=== PATIENT | female | born 1955 | race Caucasian/White ===

== ENCOUNTER → 2020-07-05 09:12 | Outpatient (BNVA) | payer OTHER, SELFPAY | PROVIDERS: PCP Family Medicine; Referring Provider Family Medicine; Visit Provider Internal Medicine Gastroenterology | DX: Z13.89 Encounter for screening for other disorder (principal) | CPT/HCPCS: Q3014 ==

== ENCOUNTER 2020-07-22 08:30 | Outpatient (REF) | payer OTHER, SELFPAY ==
--- NOTE | 2020-07-22 09:00 | US_ITS ---
EXAMINATION: US ABDOMEN LIMITED CLINICAL INFORMATION: Nonalcoholic steatohepatitis. COMPARISON: Ultrasound abdomen complete 02/05/2019. TECHNIQUE: Real-time imaging of the right upper quadrant abdominal viscera. FINDINGS: PANCREAS: The head and body of the pancreas is homogeneous in echotexture. The tail is obscured by gas. LIVER: The liver is normal size, contour with worse echogenic texture. Parenchymal echogenicity is normal. No focal hepatic lesion. There is mildly dilated intrahepatic duct GALLBLADDER: The gallbladder is physiologically distended. Multiple mobile gallstones are present. No evidence of gallbladder wall thickening or pericholecystic fluid. COMMON BILE DUCT: Normal in caliber measuring 0.83 cm in diameter. RIGHT KIDNEY: There is anechoic cyst measuring 1.3 1.3 x 1.5 cm. No hydronephrosis or renal calculi. The kidney measures 8.9 cm in maximum dimension. FREE FLUID: None. US/US abdomen limited IMPRESSION: Coarse echogenic texture liver focal lesion. Mild intrahepatic ductal dilatation.. The CBD is mildly prominent measuring 0.83 cm. Gallstones without wall thickening. Small cyst midpole right kidney.
[2020-07-22 09:13] LABS: Basophils Percent Auto 0.3 % (0-2); Eosinophils Absolute Auto 0.1 X10*3/uL (0.0-0.4); Eosinophils Percent Auto 0.9 % (0-4); Hematocrit 45.6 % (37-47); Hemoglobin 14.6 g/dl (12.0-16.0); Imm Gran Abs Auto 0.03 X10*3/uL (0.00-0.03); Imm Gran Pct Auto 0.4 % (0.0-0.4); Lymphocytes Absolute Auto 1.2 X10*3/uL (1.2-4.9); Lymphocytes Percent Auto 16.1 % (20-40); MANUAL DIFF FLAG SCAN; Mean Corpuscular Hemoglobin 28.9 pg (27.0-33.0); Mean Corpuscular Volume 90.1 fL (80-98); Mean Platelet Volume 11.6 fL (9.4-12.3); Monocytes Absolute Auto 0.3 X10*3/uL (0.1-1.2); Monocytes Percent Auto 4.3 % (2-11); Neutrophils Absolute Auto 5.9 X10*3/uL (2.0-8.3); PLT CLUMP 1; Red Blood Count 5.06 X10*6/uL (4.20-5.50); Red Cell Distribution Width 11.9 % (11.0-16.0); SCAN SMEAR FLAG 1
[2020-07-22 09:18] LABS: INTERNATIONAL NORM RATIO 1.1 (0.9-1.1); Prothrombin Time 13.5 SEC (10.8-13.0)
[2020-07-22 09:35] LABS: Alanine Aminotransferase 15 U/L (0-31); Albumin Level 4.4 g/dL (3.5-5.0); Alkaline Phosphatase 107 U/L (39-117); Anion Gap 16 (12-20); Aspartate Amino Transferase 25 U/L (5-31); Bilirubin Total 0.6 mg/dL (0.0-1.0); Blood Urea Nitrogen 9 mg/dL (9-16); Calcium 9.7 mg/dL (8.4-10.2); Carbon Dioxide 32 mmol/L (22-29); Chloride 95 mmol/L (96-108); Estimated Glomerular Filt Rate 53; Gamma Glutamyl Transpeptidase 32 U/L (7-33); Glucose Random 117 mg/dL (60-115); Potassium 4.1 mmol/l (3.3-5.1); SLIDE REVIEW VERIFIED; Sodium 139 mmol/L (135-145); Total Protein 7.1 g/dL (6.5-8.0); White Blood Count 7.6 X10*3/uL (4.8-10.8)
[2020-07-23 19:03] LABS: Immunoglobulin G 991 mg/dL (600-1540)
== END 2020-07-22 08:31 | disposition home or self-care (01) ==
LOC: HO.US 08:30
PROVIDERS: PCP Family Medicine; Visit Provider Internal Medicine Gastroenterology
DX: K52.839 Microscopic colitis, unspecified (principal); K74.60 Unspecified cirrhosis of liver; K75.81 Nonalcoholic steatohepatitis (NASH)
CPT/HCPCS: 36415; 76705; 80053; 82784; 82977; 84443; 85025; 85610

== ENCOUNTER → 2020-08-05 10:18 | Outpatient (BNVA) | payer OTHER, SELFPAY | PROVIDERS: PCP Family Medicine; Visit Provider Internal Medicine Gastroenterology | DX: Z76.89 Persons encountering health services in other specified circumstances (principal) ==

== ENCOUNTER 2020-08-19 08:55 | Outpatient (REF) | payer OTHER, SELFPAY ==
[2020-08-20 11:42] LABS: H Pylori Breath Test NOT DETECTED (NOT DETECTED)
== END 2020-08-19 08:56 | disposition home or self-care (01) ==
LOC: HO.LNP 08:55
PROVIDERS: PCP Family Medicine; Visit Provider Internal Medicine Gastroenterology
DX: K75.81 Nonalcoholic steatohepatitis (NASH) (principal); K74.60 Unspecified cirrhosis of liver
CPT/HCPCS: 83013; 99211

== ENCOUNTER → 2020-09-28 08:19 | Outpatient (BNVA) | payer OTHER, SELFPAY | PROVIDERS: PCP Family Medicine; Visit Provider Internal Medicine Gastroenterology | DX: Z13.89 Encounter for screening for other disorder (principal) | CPT/HCPCS: Q3014 ==

== ENCOUNTER → 2021-01-04 09:56 | Outpatient (BNVA) | payer OTHER, SELFPAY | PROVIDERS: PCP Family Medicine; Visit Provider Internal Medicine Gastroenterology ==

== ENCOUNTER → 2021-02-18 09:15 | Outpatient (BNVA) | payer OTHER, SELFPAY | PROVIDERS: PCP Family Medicine; Visit Provider Internal Medicine Gastroenterology | DX: K74.60 Unspecified cirrhosis of liver (principal) | CPT/HCPCS: 99212 ==

== ENCOUNTER → 2021-05-10 09:46 | Outpatient (BNVA) | payer OTHER, SELFPAY | PROVIDERS: PCP Family Medicine; Visit Provider Internal Medicine Gastroenterology | DX: K75.81 Nonalcoholic steatohepatitis (NASH) (principal); K74.60 Unspecified cirrhosis of liver; J44.9 Chronic obstructive pulmonary disease, unspecified; F41.9 Anxiety disorder, unspecified | CPT/HCPCS: Q3014 ==

== ENCOUNTER → 2021-11-14 10:14 | Outpatient (BNVA) | payer OTHER, SELFPAY | PROVIDERS: PCP Family Medicine; Visit Provider Internal Medicine Gastroenterology | DX: Z13.89 Encounter for screening for other disorder (principal) | CPT/HCPCS: Q3014 ==

== ENCOUNTER → 2022-05-05 09:22 | Outpatient (BNVA) | payer OTHER, SELFPAY | PROVIDERS: PCP Family Medicine; Visit Provider Internal Medicine Gastroenterology | DX: K75.81 Nonalcoholic steatohepatitis (NASH) (principal); K74.60 Unspecified cirrhosis of liver | CPT/HCPCS: 99212 ==

== ENCOUNTER → 2023-01-22 09:08 | Outpatient (BNVA) | payer OTHER, SELFPAY | PROVIDERS: PCP Family Medicine; Visit Provider Internal Medicine Gastroenterology | DX: K75.81 Nonalcoholic steatohepatitis (NASH) (principal); K74.60 Unspecified cirrhosis of liver | CPT/HCPCS: 99212 ==

== ENCOUNTER 2023-09-24 10:57 | Outpatient (AMB) | payer OTHER, SELFPAY ==
--- NOTE | 2023-09-24 11:09 | MHC.OFFVIS ---
Intake Vital Signs 09/24/23 11:21 Height 5 ft Weight 115 lb BMI 22.5 BP 144/79 H Blood Pressure Location Lt brachial Position Sitting Pulse 112 H Intake Visit Reasons: 6 month follow up r/s from 08/06 Intake Note: Herlinda presents in the office as a 6 month follow up. CC: States that she broke her hip and wrist within the last few months. She states GI crowder she is feeling okay. 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 RECAP: she has severe copd, on oxygen 12/02 she was on trental and ursodiol due to elevated alk phos had new partner in life Cristiano, which has made her happier she had cholecystectomy 11/2021 DATA: u/s w elastography 01/2019: coarse liver, fibroscan F0-1, gallstone, kidney cyst u/s liver 06/2020---stable liver--coarse, no mass or lesions labs: 01/2020---MELD 11, CP A, AST, ALT nml labs: 06/2020--LFT nml she had CT chest without any concerns MRI 02/2022: [facility] CBD dilated, borderline dilated PD, with 0.6 cm panc cyst, cirrhosis INTERIM: she had major fall mar 23 2023 and fracture of hip and wrist, still recovering she was in rehab, for one month appetite not so good since then, grazing bowels are normal no nausea or vomiting no abdominal pain EXAM: GENERAL: The patient is relaxed, good color VITAL SIGNS:see workflow HEENT: Nonicteric sclerae, PERRLA, EOMI. Oropharynx clear. Moist mucous membranes. Conjunctivae appear well perfused. No thyroid mass. CHEST: Chest wall is nontender. HEART: Regular rate and rhythm without murmurs LUNGS: reduced a/e and breath sounds ABDOMEN: Soft, positive bowel sounds, nontender, no organomegaly.no flank tenderness SKIN: No rash, no excessive bruising, petechiae, or purpura. NEUROLOGIC: Cranial nerves II-XII intact without motor/sensory deficit. psych- nml affect Assessment & Plan (1) Liver cirrhosis secondary to CARLSON (nonalcoholic steatohepatitis): had been stable 2/ weight loss prob 2/2 anxiety and COPD, stable now--alos lost weight from her fracture Plan: 1/ cont with trental and ursodio, PPI--refilled --wants to try PPI BID 2/ rept labs 3/ hold on variceal screening due to severe COPD, O2 dependant 4/ Ascites- none 5/ HE- no evidence 6/ liver transplant- not a candidate due to resp status--still smoking to 3/day--want to try NRT< will start with the higher dose even though cigs only 3 right now 7/ HCC screening- u/s liver w elastography--repeat now [facility] Surgical History (Updated 09/24/23 @ 11:33 by BALWINDER Melton) History of hip surgery Hx of cholecystectomy History of colonoscopy Family History Father Hx of colon cancer, stage IV Mother HX: breast cancer Social History Household Members: None Alcohol intake: never Current occupational status: retired Physical Exam Vital Signs: Last Vital Signs Pulse 112 H 09/24/23 11:21 BP 144/79 H 09/24/23 11:21 BMI result Body Mass Index 22.5 Assessment & Plan Assessment & Plan (1) Liver cirrhosis secondary to CARLSON (nonalcoholic steatohepatitis): Code(s): K75.81 - Nonalcoholic steatohepatitis (CARLSON); K74.60 - Unspecified cirrhosis of liver Plan: see above Orders: Orders Complete Blood Count Auto Diff Today K74.60 - Unspecified cirrhosis of liver, K75.81 - Nonalcoholic steatohepatitis (CARLSON) Prothrombin Time INR Today K74.60 - Unspecified cirrhosis of liver, K75.81 - Nonalcoholic steatohepatitis (CARLSON) Comprehensive Met. Panel Today K74.60 - Unspecified cirrhosis of liver, K75.81 - Nonalcoholic steatohepatitis (CARLSON) Medications: New nicotine 1 patch transdermal Q24H 42 ea 0RF Changed From pantoprazole 40 mg PO DAILY 60 tabs 2RF To pantoprazole 40 mg PO BID 60 tabs 2RF Refilled ursodiol 500 mg PO BID 180 tabs 4RF pentoxifylline ER 400 mg PO BID 90 tabs 5RF Coding Level of Care Code Est Pt Level 4 (99699) Diagnoses Liver cirrhosis secondary to CARLSON (nonalcoholic steatohepatitis) K75.81; K74.60
[2023-09-24 11:21] VITALS: BP 144/79; PULSE 112; BMI 22.5
== END 2023-09-24 12:01 | disposition home or self-care (01) ==
PROVIDERS: PCP Family Medicine; Visit Provider Internal Medicine Gastroenterology
DX: K75.81 Nonalcoholic steatohepatitis (NASH) (principal); K74.60 Unspecified cirrhosis of liver
CPT/HCPCS: 99214

== ENCOUNTER → 2023-09-24 10:57 | Outpatient (BNVA) | payer OTHER, SELFPAY | PROVIDERS: PCP Family Medicine; Visit Provider Internal Medicine Gastroenterology | DX: K75.81 Nonalcoholic steatohepatitis (NASH) (principal); K74.60 Unspecified cirrhosis of liver | CPT/HCPCS: 99212 ==

== ENCOUNTER 2024-01-25 10:07 | Outpatient (AMB) | payer OTHER, SELFPAY ==
--- NOTE | 2024-01-25 10:08 | MHC.OFFVIS ---
Vital Signs 01/25/24 10:08 Height 5 ft Intake Visit Reasons: 4 month follow up Intake Note: Denies in 4 months telehealth follow up of cirrhosis. CC: Patient reports doing well and denies having any new GI concerns. . Obstetrical Anesthesiologist Required: No Allergies acetaminophen [Tylenol] Allergy (Unknown, Verified 01/25/24 10:10) Abdominal Pain trazodone Allergy (Unknown, Verified 01/25/24 10:10) Abdominal Pain divalproex sodium [From Depakote] Adverse Reaction (Mild, Verified 01/25/24 10:10) Abdominal Pain Talwin Allergy (Mild, Uncoded 09/24/23 11:23) Abdominal Pain HPI HPI 4 month follow up: Details: 68 y/o f w/ hx of COPD (on O2), CKD, SCLC s/p XRT 2003, appendectomy and cholecystectomy being seen for f/u for cirrhosis, 2/2 chronic hep c which has been cured. RECAP: she has severe copd, on oxygen 12/02 she was on trental and ursodiol due to elevated alk phos had new partner in test [employer], which has made her happier she had cholecystectomy 11/2021 DATA: u/s w elastography 01/2019: coarse liver, fibroscan F0-1, gallstone, kidney cyst u/s liver 06/2020---stable liver--coarse, no mass or lesions labs: 01/2020---MELD 11, CP A, AST, ALT nml labs: 06/2020--LFT nml she had CT chest without any concerns MRI 02/2022: [facility] CBD dilated, borderline dilated PD, with 0.6 cm panc cyst, cirrhosis INTERIM: she had a fall and broke her shoulder 8 weeks ago, she is recovering well appetite is good, gaining weight again so she is happy bowels are normal no nausea or vomiting no abdominal pain still taking urosdiol, and PPI Assessment & Plan (1) Liver cirrhosis secondary to CARLSON (nonalcoholic steatohepatitis): had been stable 2/ weight loss prob 2/2 anxiety and COPD, stable now-- Plan: 1/ cont with trental and ursodio, PPI--refilled --wants to try PPI BID 2/ rept labs are pending 3/ hold on variceal screening due to severe COPD, O2 dependant 4/ Ascites- none 5/ HE- no evidence 6/ liver transplant- not a candidate due to resp status--she has stopped smoking for the moment 7/ HCC screening- u/s liver w elastography--repeat now --pending this as well [facility] Surgical History (Updated 09/24/23 @ 11:33 by BALWINDER Metlon) History of hip surgery Hx of cholecystectomy History of colonoscopy Family History Father Hx of colon cancer, stage IV Mother HX: breast cancer Social History Household Members: None Alcohol intake: never Current occupational status: retired Telehealth Telehealth Telehealth Platform: Telephone Location of provider rendering services: practice address Location of patient: address on file Patient Identification confirmed using: Name, : Yes Telehealth method: voice only Patient verbally consented to treatment: Yes Patient verbally consented to billing insurance company: Yes Patient informed of any privacy concerns related to visit: Yes Minutes spent on Phone/Video with Pt.: 9 Assessment & Plan Assessment & Plan (1) Liver cirrhosis secondary to CARLSON (nonalcoholic steatohepatitis): Code(s): K75.81 - Nonalcoholic steatohepatitis (CARLSON); K74.60 - Unspecified cirrhosis of liver Category: Medical Plan pending Labs, and US Coding Level of Care Code Tele Est Pt Level 3 (70[address]) Diagnoses Liver cirrhosis secondary to CARLSON (nonalcoholic steatohepatitis) K75.81; K74.60
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
--- OUTSIDE RECORDS SUMMARY | 2024-01-25 10:08 | XMS_ITS | Continuity of Care Document ---
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 Name Role Phone Yvette Chen MD Primary Care Physician [phone] Encounter [facility] Date(s): 02/24/23 - 04/26/[address] [address]- Attending Physician: Chinyere Solis MD Admitting Physician: Chinyere Solis MD Referring Physician: Yvette Chen MD Allergies, Adverse Reactions, Alerts Substance Reaction Severity Status Tylox Active Depakote Active Talwin Active Tylenol 1 Resolved traZODONE Active 1pt stated she takes tylenol [...] vaccine, inactivated 04/03/12 Give n SARS-CoV-2 mRNA ([id number]) vax 02/13/22 Given SARS-CoV-2 (COVID-19) mRNA BNT-162b2 [...] Comment: normal saline diluent added lot number [id number] expires 10/20/2022 2Admin Note: VIS given 05/16/2011 [...] tablet, 5 Refills, Maintenance, 11/23/22 16:14:00 EDT, [id number], 153, cm, 11/10/22 9:00:00 EDT, Height, 57, kg, 12/14/21 7:22:00 EDT, Dry Weight Start Date: 11/23/22 Status: Ordered Air conditioner Air conditioner, See Instructions, # 1 each, Refills 0, Tot. Refills 0, Maintenance, To use to keepthe room cool in the summer Dx: COPD on home oxygen, J43.9, Z99.81 CHARANJIT 99 Please fax to [facility], 11/11/19 13:40:00 EDT, Supply Start Date: 11/11/19 Status: Ordered Air Conditioner Air Conditioner, See Instructions, # 1 each, Refills 0, Tot. Refills 0, Maintenance, Dx: COPD J44.9To help avoid exacerbations CHARANJIT 99 Please fax to [facility], 12/30/20 13:22:00 EDT, Supply Start Date: 12/30/20 Status: Ordered albuterol 0.083% inhalation solution 1 vials, Inhalation, Every 4 to 6 hours, PRN NEEDED FOR WHEEZE, # 540 mL, 1 Refills, 07/12/22 15:39:00 EST, [facility]/pharmacy #[id number], 153, cm, 07/12/22 15:08:00 EST, Height, [...] 2 Refills, Maintenance, 12/07/22 15:47:00 EDT, Lotion, [facility]/pharmacy #[id number], Partial fill upon patient request if the prescription is for a schedule II opioid drug., 1 application Topicall... Start Date: 12/07/22 Status: Ordered amLODIPine 10 mg oral tablet 1 tablet, By Mouth, Daily, # 90 tablet, 3 Refills, Maintenance, 03/13/23 14:46:00 EDT, [facility]/pharmacy#[id number], 153, cm, 12/07/22 9:17:00 EDT, Height, 57, [...] each, 11 Refills, Maintenance, 03/13/2314:46:00 EDT, Powder, [facility]/pharmacy #[id number], Partial fill upon patient request if [...] 30 tablet, 5 Refills, Maintenance,11/10/22 9:24:00 EDT, [facility]/pharmacy #[id number], 153, cm, 11/10/22 9:00:00 EDT, Height, [...] 3, 03/13/23 14:46:00 EDT, Route toPharmacy Electronically, [facility]/pharmacy #[id number], 153, cm, 12/07/22 9:17:00 EDT, Height, 57, kg, 12/14/21 7:22:00 EDT, Dry Weight Start Date: 03/13/23 Status: Ordered Lubriderm Advanced Therapy topical lotion See Instructions, Topically 4 times a day, # 1 each, 1 Refills, Maintenance, 08/18/22 16:46:00 EST,[facility]/pharmacy #[id number], Partial fill upon patient request if the [...] N39.3 4/day CHARANJIT 99 Please fax to: [phone] [facility] one care attn to Linda Russoo, 02/07/21 [...] 18 Gm, 5 Refills, 03/13/23 14:46:00 EDT, [facility]/pharmacy #[id number], 153, cm, 12/07/22 9:17:00 EDT, Height, 57, [...] with [facility] 12/2019 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, 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, 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, 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 PTSD - Post-traumatic stress disorder [...] Team Personnel Name: Tresa Ramos RN Position: [facility] SN RN Member Role: Primary Care Nurse Name: Nic Lopez RN Position: [facility] RN Member Role: Primary Care Nurse Name: Barbara Hughes RN Position: [facility] AMB Nurse Member Role: Primary Care Nurse Name: Donna Kirk RN Position: [facility] SN RN Member Role: Primary Care Nurse Name: Gabrielle Ramires RN Position: [facility] RN Member Role: Primary Care Nurse Name: Serina Leonard RN Position: [facility] RN Supv Member Role: Primary Care Nurse Name: Christiano Sidhu RN Position: [facility] RN Member Role: Primary Care Nurse Name: Blanquita Jackson RN Position: [facility] RN Member Role: Primary Care Nurse Name: Jessica Foster RN Position: [facility] RN Member Role: Primary Care Nurse Name: Tianna Barber RN Position: [facility] RN Member Role: Primary Care Nurse Name: Viji Bess RN Position: [facility] RN Member Role: Primary Care Nurse Name: Norma Dillard NP Position: [facility] PCO Associate Professional Member Role: Primary Care Nurse Address: Address: [address] [place] [address]- [place] Name: Yvette Chen MD Position: [facility] Physician - Primary Care Member Role: PCP Address: Address: [address] [place] [address]- [place] Name: Gi Lin LPN Position: [facility] RN Member Role: Primary Care Nurse Name: Linda Haile RN Position: [facility] RN Member Role: Primary Care Nurse Name: Laura Guillermo Position: [facility] RN Member Role: Primary Care Nurse Name: Joanna Li RN Position: [facility] RN Member Role: Primary Care Nurse Name: Candy Li RN Position: [facility] RN Member Role: Primary Care Nurse Name: Rakel Kenyon RN Position: [facility] Onco RN Member Role: Primary Care Nurse Name: Linda Crews RN Position: [facility] RN Member Role: Primary Care Nurse Name: Sergey Coon RN Position: [facility] RN Member Role: Primary Care Nurse Name: Roshni Olivia RN Position: [facility] RN Member Role: Primary Care Nurse Name: Nga Vaca RN Position: [facility] RN Member Role: Primary Care Nurse Name: Evangelina Hudson RN Position: [facility] RN Member Role: Primary Care Nurse Name: Lovely Goldman RN Position: [facility] RN Member Role: Primary Care Nurse Name: Raudel Maciel RN Position: [facility] RN Member Role: Primary Care Nurse Name: Yo Zapien RN Position: [facility] RN Member Role: Primary Care Nurse Name: Max Parks RN Position: [facility] RN Member Role: Primary Care Nurse Name: Layla Clinton RN Position: [facility] RN Member Role: Primary Care Nurse Name: Mindy Lara RN Position: [facility] Onco RN Member Role: Primary Care Nurse Name: Dalila Workman RN Position: [facility] RN Member Role: Primary Care Nurse Name: Patsy Bailey RN Position: [facility] RN Member Role: Primary Care Nurse Name: Richard Mensah MD Position: [facility] Physician - [facility] Member Role: Lifetime Consulting Physician Address: Address: [address] [place] [address]- Care Team Related Persons Name: DAHIANA VALENTE Address: home [place], [place] Name: DAHIANA FLORES Address: home [address] [place] [address] Name: DOUGLAS KENNY Address: home [place], [place] Name: JAQUELIN KENNY Address: home [place], [place] Name: MINDY KENNY Address: home [address] [place] [address]
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
--- OUTSIDE RECORDS SUMMARY | 2024-01-25 10:08 | XMS_ITS | Continuity of Care Document ---
Author Organization [facility] Address [address] [place] [address]- Care Team Providers Care Corporate Learning Consultant Name Role Phone Gustavo HARRIS, Yvette Robert Primary Care Physician Encounter [facility] Date(s): 08/28/23 - 09/27/[address] [address]- Allergies, Adverse Reactions, Alerts Substance Reaction Severity [...] vaccine, inactivated 04/03/12 Give n SARS-CoV-2 mRNA ([id number]) vax 02/13/22 Given SARS-CoV-2 (COVID-19) mRNA BNT-162b2 [...] Comment: normal saline diluent added lot number [id number] expires 10/20/2022 2Admin Note: VIS given 05/16/2011 [...] J43.9, Z99.81 CHARANJIT 99 Please fax to [facility], 11/11/19 13:40:00 EDT, Supply Start Date: 11/11/19 Status: Ordered Air Conditioner Air Conditioner, See Instructions, # 1 each, Refills 0, Tot. Refills 0, Maintenance, Dx: COPD J44.9To help avoid exacerbations CHARANJIT 99 Please fax to [facility], 12/30/20 13:22:00 EDT, Supply Start Date: 12/30/20 Status: Ordered albuterol 0.083% inhalation solution 1 vials, Inhalation, Every 4 to 6 hours, PRN NEEDED FOR WHEEZE, # 525 mL, 1 Refills, Maintenance, 09/19/23 11:27:00 EST, [facility]/pharmacy #[id number], 153, cm, 08/20/23 14:08:00 EST, [...] 2 Refills, Maintenance, 12/07/22 15:47:00 EDT, Lotion, [facility]/pharmacy #[id number], Partial fill upon patient request if the prescription is for a schedule II opioid drug., 1 application Topicall... Start Date: 12/07/22 Status: Ordered amLODIPine 10 mg oral tablet 1 tablet, By Mouth, Daily, # 90 tablet, 3 Refills, Maintenance, 08/20/23 14:39:00 EST, [facility]/pharmacy#[id number], 153, cm, 08/20/23 14:08:00 EST, Height, [...] 2 Refills, Maintenance, 02/13/22 10:52:00 EDT, Capsule, [facility]/pharmacy #[id number], Partial fill upon patient request [...] each, 11 Refills, Maintenance, 08/20/2413:39:00 EST, Powder, [facility]/pharmacy #[id number], Partial fill upon patient request [...] 90 tablet, 0 Refills, Maintenance,09/18/23 10:02:00 EST, [facility]/pharmacy #[id number], 153, cm, 08/20/23 14:08:00 EST, [...] 3, 08/20/23 14:39:00 EST, Route toPharmacy Electronically, [facility]/pharmacy #[id number], 153, cm, 08/20/23 14:08:00 EST, Height, 57, kg, 03/24/23 13:41:00 EDT, Dry Weight Start Date: 08/20/23 Status: Ordered Lubriderm Advanced Therapy topical lotion See Instructions, Topically 4 times a day, # 1 each, 1 Refills, Maintenance, 08/20/23 14:41:00 EST,[facility]/pharmacy #[id number], Partial fill upon patient request if the [...] considering TKR with [facility] 12/2019 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 *[phone] Game Advisor Argenis Sanchez 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 PTSD - Post-traumatic [...] Team Personnel Name: Tresa Ramos RN Position: [facility] SN RN Member Role: Primary Care Nurse Name: Nic Lopez RN Position: [facility] RN Member Role: Primary Care Nurse Name: Roshni Rm RN Position: [facility] RN Member Role: Primary Care Nurse Name: Barbara Hughes RN Position: [facility] AMB Nurse Member Role: Primary Care Nurse Name: Donna Kirk RN Position: [facility] SN RN Member Role: Primary Care Nurse Name: Gabrielle Ramires RN Position: [facility] RN Member Role: Primary Care Nurse Name: Serina Leonard RN Position: [facility] RN Supv Member Role: Primary Care Nurse Name: Christiano Sidhu RN Position: [facility] RN Member Role: Primary Care Nurse Name: Blanquita Jackson RN Position: [facility] RN Member Role: Primary Care Nurse Name: Mindy Armendariz RN Position: [facility] Onco RN Member Role: Primary Care Nurse Name: Jessica Foster RN Position: [facility] RN Member Role: Primary Care Nurse Name: Tianna Barber RN Position: [facility] RN Member Role: Primary Care Nurse Name: Viji Bess RN Position: [facility] RN Member Role: Primary Care Nurse Name: Norma Dillard NP Position: [facility] PCO Associate Professional Member Role: Primary Care Nurse Address: Address: [address] [place] [address]- Name: Yvette Chen MD Position: [facility] Physician - Primary Care Member Role: PCP Address: Address: [address] [place] [address]- Name: Gi Lin LPN Position: [facility] RN Member Role: Primary Care Nurse Name: Linda Haile RN Position: [facility] RN Member Role: Primary Care Nurse Name: Joanna Li RN Position: [facility] RN Member Role: Primary Care Nurse Name: Candy Li RN Position: [facility] RN Member Role: Primary Care Nurse Name: Rakel Kenyon RN Position: [facility] Onco RN Member Role: Primary Care Nurse Name: Linda Crews RN Position: [facility] RN Member Role: Primary Care Nurse Name: Sergey Coon RN Position: [facility] RN Member Role: Primary Care Nurse Name: Nga Vaca RN Position: [facility] RN Member Role: Primary Care Nurse Name: Evangelina Hudson RN Position: [facility] RN Member Role: Primary Care Nurse Name: Lovely Goldman RN Position: [facility] Onco RN Member Role: Primary Care Nurse Name: Raudel Maciel RN Position: [facility] RN Member Role: Primary Care Nurse Name: Yo Zapien RN Position: [facility] RN Member Role: Primary Care Nurse Name: Max Parks RN Position: [facility] RN Member Role: Primary Care Nurse Name: Layla [place] RN Position: [facility] RN Member Role: Primary Care Nurse Name: Dalila Workman RN Position: [facility] RN Member Role: Primary Care Nurse Name: Patsy Bailey RN Position: [facility] RN Member Role: Primary Care Nurse Name: Richard Mensah MD Position: [facility] Physician - Behavioral Health Member Role: Lifetime Consulting Physician Address: Address: [address] [place] [address]- [place] Care Team Related Persons Name: DAHIANA VALENTE Address: home [place], [place] Name: DAHIANA FLORES Address: home [address] [place] [address] Name: DOUGLAS KENNY Address: home [place], [place] Name: JAQUELIN KENNY Address: [place], [place] Name: MINDY KENNY Address: home [address] [place] [id number]
--- OUTSIDE RECORDS SUMMARY | 2024-01-25 10:09 | XMS_ITS | Continuity of Care Document ---
Author Organization [facility] Address [address] [place] [address]- Care Team Providers Care Candy Bar Attendant Name Role Phone Yvette Chen MD Primary Care Physician Encounter [facility] Date(s): 05/11/23 - 06/10/[address] [address]- Allergies, Adverse Reactions, Alerts Substance Reaction Severity Status traZODONE Active Talwin Active Tylox Active Tylenol 1 Resolved Depakote Active 1pt stated she takes tylenol and [...] vaccine, inactivated 04/03/12 Give n SARS-CoV-2 mRNA ([id number]) vax 02/13/22 Given SARS-CoV-2 (COVID-19) mRNA BNT-162b2 [...] Comment: normal saline diluent added lot number [id number] expires 10/20/2022 2Admin Note: VIS given 05/16/2011 [...] tablet, 5 Refills, Maintenance, 11/23/22 16:14:00 EDT, [id number], 153, cm, 11/10/22 9:00:00 EDT, Height, 57, kg, 12/14/21 7:22:00 EDT, Dry Weight Start Date: 11/23/22 Status: Ordered Air conditioner Air conditioner, See Instructions, # 1 each, Refills 0, Tot. Refills 0, Maintenance, To use to keepthe room cool in the summer Dx: COPD on home oxygen, J43.9, Z99.81 CHARANJIT 99 Please fax to [facility] [employer], 11/11/19 13:40:00 EDT, Supply Start Date: 11/11/19 Status: Ordered Air Conditioner Air Conditioner, See Instructions, # 1 each, Refills 0, Tot. Refills 0, Maintenance, Dx: COPD J44.9To help avoid exacerbations CHARANJIT 99 Please fax to [facility], 12/30/20 13:22:00 EDT, Supply Start Date: 12/30/20 Status: Ordered albuterol 0.083% inhalation solution 1 vials, Inhalation, Every 4 to 6 hours, PRN NEEDED FOR WHEEZE, # 540 mL, 1 Refills, 07/12/22 15:39:00 EST, [facility]/pharmacy #[id number], 153, cm, 07/12/22 15:08:00 EST, Height, [...] 2 Refills, Maintenance, 12/07/22 15:47:00 EDT, Lotion, [facility]/pharmacy #[id number], Partial fill upon patient request if the prescription is for a schedule II opioid drug., 1 application Topicall... Start Date: 12/07/22 Status: Ordered amLODIPine 10 mg oral tablet 1 tablet, By Mouth, Daily, # 90 tablet, 3 Refills, Maintenance, 03/13/23 14:46:00 EDT, [facility]/pharmacy#[id number], 153, cm, 12/07/22 9:17:00 EDT, Height, 57, [...] Ordered hydrOXYzine hydrochloride 50 mg oral tablet See Instructions, TAKE 1 TABLET BY MOUTH DAILY AT BEDTIME NEEDED FOR SLEEP, # 90 tablet, 1 Refills, Maintenance, 05/03/23 11:09:00 EDT, [id number], 153, cm, 04/20/23 10:44:00 EDT, Height, 57,kg, 03/24/23 13:41:00 EDT, Dry Weight Start Date: 05/03/23 Status: Ordered hydrOXYzine hydrochloride 50 mg oral [...] 1 each, 1 Refills, Maintenance, 08/18/22 16:46:00 EST,[facility]/pharmacy #[id number], Partial fill upon patient request if the [...] N39.3 4/day CHARANJIT 99 Please fax to: [phone] [facility] one care attn to Linda Nathan, 02/07/21 12:53:00 EDT, Supply Start Date: 02/07/21 [...] 18 Gm, 5 Refills, 03/13/23 14:46:00 EDT, [facility]/pharmacy #[id number], 153, cm, 12/07/22 9:17:00 EDT, Height, [...] with [facility] 12/2019 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 CCA N, Filling Hauler, Linda Evans, 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 PTSD - Post-traumatic [...] Team Personnel Name: Tresa Ramos RN Position: [facility] SN RN Member Role: Primary Care Nurse Name: Nic Lopez RN Position: [facility] RN Member Role: Primary Care Nurse Name: Roshni Rm RN Position: [facility] RN Member Role: Primary Care Nurse Name: Barbara Hughes RN Position: [facility] AMB Nurse Member Role: Primary Care Nurse Name: Donna Kirk RN Position: [facility] SN RN Member Role: Primary Care Nurse Name: Gabrielle Ramires RN Position: [facility] RN Member Role: Primary Care Nurse Name: Serina Leonard RN Position: [facility] RN Supv Member Role: Primary Care Nurse Name: Christiano Sidhu RN Position: [facility] RN Member Role: Primary Care Nurse Name: Blanquita Jackson RN Position: [facility] RN Member Role: Primary Care Nurse Name: Efren RNMindy Position: [facility] Onco RN Member Role: Primary Care Nurse Name: Jessica Foster RN Position: [facility] RN Member Role: Primary Care Nurse Name: Tianna Barber RN Position: [facility] RN Member Role: Primary Care Nurse Name: Viji Bess RN Position: [facility] RN Member Role: Primary Care Nurse Name: Norma Dillard NP Position: [facility] PCO Associate Professional Member Role: Primary Care Nurse Address: Address: [address] [place] [address]- Name: Yvette Chen MD Position: [facility] Physician - Primary Care Member Role: PCP Address: Address: [address] [place] [address]- Name: Gi Lin LPN Position: [facility] RN Member Role: Primary Care Nurse Name: Linda Haile RN Position: [facility] RN Member Role: Primary Care Nurse Name: Laura Guillermo Position: [facility] RN Member Role: Primary Care Nurse Name: Joanna Li RN Position: [facility] RN Member Role: Primary Care Nurse Name: Candy Li RN Position: [facility] RN Member Role: Primary Care Nurse Name: Rakel Kenyon RN Position: [facility] Onco RN Member Role: Primary Care Nurse Name: Linda Crews RN Position: [facility] RN Member Role: Primary Care Nurse Name: Sergey Coon RN Position: [facility] RN Member Role: Primary Care Nurse Name: Nga Vaca RN Position: [facility] RN Member Role: Primary Care Nurse Name: Evangelina Hudson RN Position: [facility] RN Member Role: Primary Care Nurse Name: Lovely Goldman RN Position: [facility] RN Member Role: Primary Care Nurse Name: Raudel Maciel RN Position: [facility] RN Member Role: Primary Care Nurse Name: Yo Zapien RN Position: [facility] RN Member Role: Primary Care Nurse Name: Max Parks RN Position: [facility] RN Member Role: Primary Care Nurse Name: Layla Clinton RN Position: [facility] RN Member Role: Primary Care Nurse Name: Dalila Workman RN Position: [facility] RN Member Role: Primary Care Nurse Name: Patsy Bailey RN Position: [facility] RN Member Role: Primary Care Nurse Name: Rodrick HARRIS, Richard Position: [facility] Physician - Behavioral Health Member Role: Lifetime Consulting Physician Address: Address: [address] [place] [address]- Care Team Related Persons Name: DAHIANA VALENTE Address: [place] [address] Name: DAHIANA FLORES Address: home [address] [place] [address] Name: DOUGLAS KENNY Address: home [place], [place] Name: JAQUELIN KENNY Address: home [place], [place] Name: MINDY KENNY Address: home [address] [place] [address]
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
--- OUTSIDE RECORDS SUMMARY | 2024-01-25 10:09 | XMS_ITS | Continuity of Care Document ---
Author Organization [facility] Address [address] [place] [address]- Care Team Providers Care Garment Sorter Name Role Phone Gustavo HARRIS, Yvette Robert Primary Care Physician Encounter [facility] Date(s): 12/07/23 - 01/06/[address] [address]- Allergies, Adverse Reactions, Alerts Substance Reaction Severity Status Depakote Active traZODONE Active Tylenol 1 Resolved Talwin Active Tylox Active 1pt stated she takes tylenol and [...] vaccine, inactivated 04/03/12 Give n SARS-CoV-2 mRNA ([id number]) vax 02/13/22 Given SARS-CoV-2 (COVID-19) mRNA BNT-162b2 [...] Comment: normal saline diluent added lot number [id number] expires 10/20/2022 2Admin Note: VIS given 05/16/2011 3Admin Note: VIS 10/10/2005 4Admin Note: vis 08/15/11 5Admin Note: vis Medications acetaminophen 650 mg oral tablet, extended release 1 tablet, By Mouth, Every 8 hours, PRN NEEDED FOR MODERATE PAIN, # 90 tablet, 5 Refills, Maintenance, 08/20/23 14:40:00 EST, [facility]/pharmacy #[id number], 153, cm, 08/20/23 14:08:00 EST, Height, 57, kg, 03/24/23 13:41:00 EDT, Dry Weight Start Date: 08/20/23 Status: Ordered albuterol 0.083% inhalation solution 1 vials, Inhalation, Every 4 to 6 hours, PRN NEEDED FOR WHEEZE, # 525 mL, 1 Refills, Maintenance, 09/19/23 11:27:00 EST, [facility]/pharmacy #[id number], 153, cm, 08/20/23 14:08:00 EST, Height, 57, kg, 03/24/23 13:41:00 EDT, Dry Weight Start Date: 09/19/23 Status: Ordered albuterol CFC free 90 mcg/inh inhalation aerosol 2, puffs, Inhalation, 4 times a day, PRN, # 1 each, Refills 11, Tot. Refills 11, Maintenance, 11/13/23 14:24:00 EDT, Aerosol, Route to Pharmacy Electronically, [id number], [facility]/pharmacy #[id number], 153, cm, 11/13/23 14:02:00 EDT, H... Start Date: 11/13/23 Status: Ordered Alprazolam 1 mg, By Mouth, Daily, PRN, Refills 0, Maintenance, as needed for anxiety, 04/06/20 22:43:00 EDT Start Date: 04/06/20 Status: Ordered amLODIPine 10 mg oral tablet 1 tablet, By Mouth, Daily, # 90 tablet, 3 Refills, Maintenance, 08/20/23 14:39:00 EST, [id number], 153, cm, 08/20/23 14:08:00 EST, Height, 57, kg, 03/24/23 13:41:00 EDT, Dry Weight Start Date: 08/20/23 Status: Ordered Clonazepam = 1 mg, By Mouth, 2 times a day, 0 Refills, Maintenance, 12/27/18 13:29:45 EDT Start Date: 12/27/18 Status: Ordered diclofenac 3% topical gel = 0.5 Gm, Topically, 2 times a day, # 14 Gm, 0 Refills, Maintenance, 12/05/23 13:46:00 EDT, Gel, [facility]/pharmacy #[id number], Partial fill upon patient request if the prescription is for a schedule II opioid drug., 0.5 Gm Topically 2 times a day,x14 days, 153,... Start Date: 12/05/23 Stop Date: 12/19/23 Status: Ordered Electric recliner Electric recliner, See Instructions, # 1 each, Refills 0, Tot. Refills 0, Maintenance, For safety at home Dx: Z91.81, Z87.81, M17.10 CHARANJIT 1 year Please fax to [facility], 09/21/23 8:35:00 EST, Supply, 153, cm, 08/20/23 14:08:00 EST, Height, 5... Start Date: 09/21/23 Status: Ordered Ensure Ensure, See Instructions, # 60 each, Refills 5, Tot. Refills 5, Maintenance, 2/day Dx: Unintentional weight loss, advanced COPD, cirrhosis CHARANJIT 99 Please fax to [employer], 12/14/23 12:10:00 EDT, Supply Start Date: 12/14/23 Status: Ordered hydrOXYzine hydrochloride 50 mg oral tablet 1 tablet, By Mouth, Daily at bedtime, PRN NEEDED FOR SLEEP, # 90 tablet, 0 Refills, Maintenance,09/18/23 10:02:00 EST, [id number], 153, cm, 08/20/23 14:08:00 [...] 3, 08/20/23 14:39:00 EST, Route toPharmacy Electronically, [facility]/pharmacy #[id number], 153, cm, 08/20/23 14:08:00 EST, Height, 57, kg, 03/24/23 13:41:00 EDT, Dry Weight Start Date: 08/20/23 Status: Ordered Lubriderm Advanced Therapy topical lotion See Instructions, Topically 4 times a day, # 1 each, 1 Refills, Maintenance, 08/20/23 14:41:00 EST,[facility]/pharmacy #[id number], Partial fill upon patient [...] Topically, Daily, # 30 patch, 0 Refills, Acute 01/25/24 16:19:00 EDT, 12/28/23 16:19:00 EDT, Patch, [facility]/pharmacy #[id number], Partial fill upon patient request if the prescription is for a schedule II opioid drug., 1 patch Topically Daily, 153, cm,... Start Date: 12/28/23 Stop Date: 01/25/24 Status: Ordered Oxygen therapy; oxygen concentrator Oxygen [...] Refills 11, Maintenance, Dx:Stress Urinary Incontinence N39.3 6 CHARANJIT 99 Please fax to: [facility], 08/10/23 16:41:00 EST, Supply Start Date: 08/10/23 Status: Ordered pantoprazole 40 mg oral delayed release tablet TAKE 1 TABLET BY MOUTH EVERY DAY Start Date: 03/23/23 Status: Ordered pentoxifylline 400 mg oral tablet, extended release 400 mg, 1, tablet, By Mouth, 2 times a day, Refills 0, Maintenance, 04/06/20 22:42:00 EDT Start Date: 04/06/20 Status: Ordered Trelegy Ellipta 200 mcg-62.5 mcg-25 mcg/inh inhalation powder 1 puffs, Inhalation, Daily, at the same time every day, # 1 each, 11 Refills, Maintenance, 11/12/2413:23:00 EDT, Powder, [facility]/pharmacy #[id number], Partial fill upon patient request if the prescription is for a schedule II opioid drug., 1 puffs Inhalation D... 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 Argenis Sanhcez 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 PTSD - Post-traumatic stress disorder [...] Team Personnel Name: Tresa Ramos RN Position: [facility] SN RN Member Role: Primary Care Nurse Name: Nic Lopez RN Position: [facility] RN Member Role: Primary Care Nurse Name: Roshni Rm RN Position: [facility] RN Member Role: Primary Care Nurse Name: Barbara Hughes RN Position: [facility] AMB Nurse Member Role: Primary Care Nurse Name: Donna Kirk RN Position: [facility] SN RN Member Role: Primary Care Nurse Name: Gabrielle Ramires RN Position: [facility] RN Member Role: Primary Care Nurse Name: Serina Leonard RN Position: [facility] RN Supbrian Member Role: Primary Care Nurse Name: Christiano Sidhu RN Position: [facility] RN Member Role: Primary Care Nurse Name: Blanquita Jackson RN Position: [facility] RN Member Role: Primary Care Nurse Name: Mindy Armendariz RN Position: [facility] Onco RN Member Role: Primary Care Nurse Name: Jessica Foster RN Position: [facility] RN Member Role: Primary Care Nurse Name: Tianna Barber RN Position: [facility] RN Member Role: Primary Care Nurse Name: Viji Bess RN Position: [facility] RN Member Role: Primary Care Nurse Name: Nishant MENGNorma Position: [facility] PCO Associate Professional Member Role: Primary Care Nurse Address: Address: [address] [place] [address]- [place] Name: Yvette Chen MD Position: [facility] Physician - Primary Care Member Role: PCP Address: Address: [address] [place] [address]- [place] Name: Linda Haile RN Position: [facility] RN Member Role: Primary Care Nurse Name: Joanna Li RN Position: [facility] RN Member Role: Primary Care Nurse Name: Candy Li RN Position: [facility] RN Member Role: Primary Care Nurse Name: Rakel Kenyon RN Position: [facility] Onco RN Member Role: Primary Care Nurse Name: Linda Crews RN Position: [facility] RN Member Role: Primary Care Nurse Name: Sergey Coon RN Position: [facility] RN Member Role: Primary Care Nurse Name: Nga Vaca RN Position: [facility] RN Member Role: Primary Care Nurse Name: Evangelina Hudson RN Position: [facility] RN Member Role: Primary Care Nurse Name: Lovely Goldman RN Position: [facility] Onco RN Member Role: Primary Care Nurse Name: Raudel Maciel RN Position: [facility] RN Member Role: Primary Care Nurse Name: Yo Zapien RN Position: [facility] RN Member Role: Primary Care Nurse Name: Max Parks RN Position: [facility] RN Member Role: Primary Care Nurse Name: Layla Clinton RN Position: [facility] RN Member Role: Primary Care Nurse Name: Dalila Workman RN Position: [facility] RN Member Role: Primary Care Nurse Name: Patsy Bailey RN Position: [facility] RN Member Role: Primary Care Nurse Name: Richard Mensah MD Position: [facility] Physician - Behavioral Health Member Role: Lifetime Consulting Physician Address: Address: [address] [place] [address]- [place] Care Team Related Persons Name: DAHIANA VALENTE Address: [place] [address] Name: DAHIANA FLORES Address: home [address] [place] [address] Name: DOUGLAS KENNY Address: [place] [address] Name: JAQUELIN KENNY Address: [place] [address] Name: MINDY KENNY Address: home [address] [place] [address]
--- OUTSIDE RECORDS SUMMARY | 2024-01-25 10:09 | XMS_ITS | Continuity of Care Document ---
Author Organization [facility] Address [address] [place] [address]- Care Team Providers Care Car Detailer Name Role Phone Gustavo HARRIS, Yvette Robert Primary Care Physician [place] [facility]14[place] - 07/21/[address] [address]- Attending Physician: Not on Staff, Attending MD Allergies, Adverse Reactions, Alerts Substance Reaction [...] vaccine, inactivated 04/03/12 Give n SARS-CoV-2 mRNA ([id number]-txqr-vhlii) vax 02/13/22 Given SARS-CoV-2 (COVID-19) mRNA BNT-162b2 [...] Comment: normal saline diluent added lot number [id number] expires 10/20/2022 2Admin Note: VIS given 05/16/2011 [...] PAIN, # 90 tablet, 5 Refills, Maintenance, 07/12/23 12:56:00 EST, [id number], 153, cm, 04/20/23 10:44:00 EDT, Height, 57, kg, 03/24/23 13:41:00 EDT, Dry Weight Start Date: 07/12/23 Status: Ordered Air conditioner Air conditioner, See Instructions, # 1 each, Refills 0, Tot. Refills 0, Maintenance, To use to keepthe room cool in the summer Dx: COPD on home oxygen, J43.9, Z99.81 CHARANJIT 99 Please fax to [employer], 11/11/19 13:40:00 EDT, Supply Start Date: 11/11/19 Status: Ordered Air Conditioner Air Conditioner, See Instructions, # 1 each, Refills 0, Tot. Refills 0, Maintenance, Dx: COPD J44.9To help avoid exacerbations CHARANJIT 99 Please fax to [employer] [facility], 12/30/20 13:22:00 EDT, Supply Start Date: 12/30/20 Status: Ordered albuterol 0.083% inhalation solution 1 vials, Inhalation, Every 4 to 6 hours, PRN NEEDED FOR WHEEZE, # 540 mL, 1 Refills, 07/12/22 15:39:00 EST, [facility]/pharmacy #[id number], 153, cm, 07/12/22 15:08:00 EST, Height, [...] 2 Refills, Maintenance, 12/07/22 15:47:00 EDT, Lotion, [facility]/pharmacy #[id number], Partial fill upon patient request if the prescription is for a schedule II opioid drug., 1 application Topicall... Start Date: 12/07/22 Status: Ordered amLODIPine 10 mg oral tablet 1 tablet, By Mouth, Daily, # 90 tablet, 3 Refills, Maintenance, 03/13/23 14:46:00 EDT, [facility]/pharmacy#[id number], 153, cm, 12/07/22 9:17:00 EDT, Height, 57, [...] Refills, Maintenance, 05/03/23 11:09:00 EDT, [id number], 153, cm, 04/20/23 10:44:00 EDT, Height, 57,kg, [...] 1 each, 1 Refills, Maintenance, 08/18/22 16:46:00 EST,[facility]/pharmacy #[id number], Partial fill upon patient [...] N39.3 4/day CHARANJIT 99 Please fax to: [phone] [facility] one care attn to Linda Nathan, 02/07/21 [...] 18 Gm, 5 Refills, 03/13/23 14:46:00 EDT, [id number], 153, cm, 12/07/22 9:17:00 EDT, [...] with [facility] 12/2019 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 CCA N, [employer] Director, Linda Evans, 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 PTSD - Post-traumatic [...] Team Personnel Name: Tresa Ramos RN Position: [facility] SN RN Member Role: Primary Care Nurse Name: Nic Lopez RN Position: [facility] RN Member Role: Primary Care Nurse Name: Roshni Rm RN Position: [facility] RN Member Role: Primary Care Nurse Name: Barbara Hughes RN Position: [facility] SHERITA Nurse Member Role: Primary Care Nurse Name: Donna Kirk RN Position: [facility] RN Member Role: Primary Care Nurse Name: Gabrielle Ramires RN Position: [facility] RN Member Role: Primary Care Nurse Name: Serina Leonard RN Position: [facility] RN Supv Member Role: Primary Care Nurse Name: Christiano Sidhu RN Position: [facility] RN Member Role: Primary Care Nurse Name: Blanquita Jackson RN Position: [facility] RN Member Role: Primary Care Nurse Name: Mindy Armendariz RN Position: [facility] Onco RN Member Role: Primary Care Nurse Name: Jessica Foster RN Position: [facility] RN Member Role: Primary Care Nurse Name: Tianna Barber RN Position: [facility] RN Member Role: Primary Care Nurse Name: Viji Bess RN Position: [facility] RN Member Role: Primary Care Nurse Name: Norma Dillard NP Position: [facility] PCO Associate Professional Member Role: Primary Care Nurse Address: Address: [address] [place] [address]- Name: Yvette Chen MD Position: [facility] Physician - Primary Care Member Role: PCP Address: Address: [address] [place] [address]- Name: Gi Lin LPN Position: [facility] RN Member Role: Primary Care Nurse Name: Linda Haile RN Position: [facility] RN Member Role: Primary Care Nurse Name: Joanna Li RN Position: [facility] RN Member Role: Primary Care Nurse Name: Candy Li RN Position: [facility] RN Member Role: Primary Care Nurse Name: Rakel Kenyon RN Position: [facility] Onco RN Member Role: Primary Care Nurse Name: Linda Crews RN Position: [facility] RN Member Role: Primary Care Nurse Name: Sergey Coon RN Position: [facility] RN Member Role: Primary Care Nurse Name: Nga Vaca RN Position: [facility] RN Member Role: Primary Care Nurse Name: Evangelina Hudson RN Position: [facility] RN Member Role: Primary Care Nurse Name: Lovely Goldman RN Position: [facility] RN Member Role: Primary Care Nurse Name: Raudel Maciel RN Position: [facility] RN Member Role: Primary Care Nurse Name: Yo Zapien RN Position: [facility] RN Member Role: Primary Care Nurse Name: Max Parks RN Position: [facility] RN Member Role: Primary Care Nurse Name: Layla Clinton RN Position: [facility] RN Member Role: Primary Care Nurse Name: Dalila Workman RN Position: [facility] RN Member Role: Primary Care Nurse Name: Patsy Bailey RN Position: [facility] RN Member Role: Primary Care Nurse Name: Richard Mensah MD Position: [facility] Physician - Behavioral Health Member Role: Lifetime Consulting Physician Address: Address: [address] [place] [address]- Care Team Related Persons Name: DAHIANA VALENTE Address: [place] [address] Name: DAHIANA FLORES Address: home [address] [place] [address] Name: DOULGAS KENNY Address: [place], [place] Name: JAQUELIN KENNY Address: [place], [place] Name: MINDY KENNY Address: home [address] [place] [address]
--- OUTSIDE RECORDS SUMMARY | 2024-01-25 10:09 | XMS_ITS | Continuity of Care Document ---
Author Organization [facility] Address [address] [place] [address]- Care Team Providers Care Radar Systems Engineer Name Role Phone Yvette Chen MD Primary Care Physician [facility] Date(s): 04/12/23 - 05/12/[address] [address]- Allergies, Adverse Reactions, Alerts Substance Reaction Severity [...] vaccine, inactivated 04/03/12 Give n SARS-CoV-2 mRNA ([id number]) vax 02/13/22 Given SARS-CoV-2 (COVID-19) mRNA BNT-162b2 [...] Comment: normal saline diluent added lot number [id number] expires 10/20/2022 2Admin Note: VIS given 05/16/2011 [...] tablet, 5 Refills, Maintenance, 11/23/22 16:14:00 EDT, [facility], 153, cm, 11/10/22 9:00:00 EDT, Height, 57, kg, 12/14/21 7:22:00 EDT, Dry Weight Start Date: 11/23/22 Status: Ordered Air conditioner Air conditioner, See Instructions, # 1 each, Refills 0, Tot. Refills 0, Maintenance, To use to keepthe room cool in the summer Dx: COPD on home oxygen, J43.9, Z99.81 CHARANJIT 99 Please fax to [facility] [employer], 11/11/19 13:40:00 EDT, Supply Start Date: 11/11/19 Status: Ordered Air Conditioner Air Conditioner, See Instructions, # 1 each, Refills 0, Tot. Refills 0, Maintenance, Dx: COPD J44.9To help avoid exacerbations CHARANJIT 99 Please fax to [facility], 12/30/20 13:22:00 EDT, Supply Start Date: 12/30/20 Status: Ordered albuterol 0.083% inhalation solution 1 vials, Inhalation, Every 4 to 6 hours, PRN NEEDED FOR WHEEZE, # 540 mL, 1 Refills, 07/12/22 15:39:00 EST, [facility]/pharmacy #[id number], 153, cm, 07/12/22 15:08:00 EST, Height, [...] 2 Refills, Maintenance, 12/07/22 15:47:00 EDT, Lotion, [facility]/pharmacy #[id number], Partial fill upon patient request if the prescription is for a schedule II opioid drug., 1 application [employer]... Start Date: 12/07/22 Status: Ordered amLODIPine 10 mg oral tablet 1 tablet, By Mouth, Daily, # 90 tablet, 3 Refills, Maintenance, 03/13/23 14:46:00 EDT, [facility]/pharmacy#[id number], 153, cm, 12/07/22 9:17:00 EDT, Height, 57, [...] Refills, Maintenance, 05/03/23 11:09:00 EDT, [facility], 153, cm, 04/20/23 10:44:00 EDT, Height, 57,kg, [...] 1 each, 1 Refills, Maintenance, 08/18/22 16:46:00 EST,[facility]/pharmacy #[id number], Partial fill upon patient request if the [...] N39.3 4/day CHARANJIT 99 Please fax to: [phone] [facility] one care attn to Linda Nathan, 02/07/21 [...] 18 Gm, 5 Refills, 03/13/23 14:46:00 EDT, [facility]/pharmacy #[id number], 153, cm, 12/07/22 9:17:00 EDT, Height, [...] with [facility] 12/2019 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 CCA N, Delinquency Prevention Officer, Linda Evans, 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 PTSD - Post-traumatic [...] Team Personnel Name: Tresa Ramos RN Position: [facility] SN RN Member Role: Primary Care Nurse Name: Nic Lopez RN Position: [facility] RN Member Role: Primary Care Nurse Name: Roshni Rm RN Position: [facility] RN Member Role: Primary Care Nurse Name: Barbara Hughes RN Position: [facility] AMB Nurse Member Role: Primary Care Nurse Name: Donna Kirk RN Position: [facility] SN RN Member Role: Primary Care Nurse Name: Gabrielle Ramires RN Position: [facility] RN Member Role: Primary Care Nurse Name: Serina Leonard RN Position: [facility] RN Supv Member Role: Primary Care Nurse Name: Christiano Sidhu RN Position: [facility] RN Member Role: Primary Care Nurse Name: Blanquita Jackson RN Position: [facility] RN Member Role: Primary Care Nurse Name: Efren RNMindy Position: [facility] Onco RN Member Role: Primary Care Nurse Name: Jessica Foster RN Position: [facility] RN Member Role: Primary Care Nurse Name: Tianna Barber RN Position: [facility] RN Member Role: Primary Care Nurse Name: Viji Bess RN Position: [facility] RN Member Role: Primary Care Nurse Name: Norma Dillard NP Position: [facility] PCO Associate Professional Member Role: Primary Care Nurse Address: Address: [address] [place] [address]- Name: Yvette Chen MD Position: [facility] Physician - Primary Care Member Role: PCP Address: Address: [address] [place] [address]- Name: Gi Lin LPN Position: [facility] RN Member Role: Primary Care Nurse Name: Linda Haile RN Position: [facility] RN Member Role: Primary Care Nurse Name: Laura Guillermo Position: [facility] RN Member Role: Primary Care Nurse Name: Joanna Li RN Position: [facility] RN Member Role: Primary Care Nurse Name: Candy Li RN Position: [facility] RN Member Role: Primary Care Nurse Name: Rakel Kenyon RN Position: [facility] Onco RN Member Role: Primary Care Nurse Name: Linda Crews RN Position: [facility] RN Member Role: Primary Care Nurse Name: Sergey Coon RN Position: [facility] RN Member Role: Primary Care Nurse Name: Nga Vaca RN Position: [facility] RN Member Role: Primary Care Nurse Name: Evangelina Hudson RN Position: [facility] RN Member Role: Primary Care Nurse Name: Lovely Goldman RN Position: [facility] RN Member Role: Primary Care Nurse Name: Raudel Maciel RN Position: [facility] RN Member Role: Primary Care Nurse Name: Yo Zapien RN Position: [facility] RN Member Role: Primary Care Nurse Name: Max Parks RN Position: [facility] RN Member Role: Primary Care Nurse Name: Layla Clinton RN Position: [facility] RN Member Role: Primary Care Nurse Name: Dalila Workman RN Position: [facility] RN Member Role: Primary Care Nurse Name: Patsy Bailey RN Position: [facility] RN Member Role: Primary Care Nurse Name: Rodrick HARRIS, Richard Position: [facility] Physician - Behavioral Health Member Role: Lifetime Consulting Physician Address: Address: [address] [place] [address]- Care Team Related Persons Name: DAHIANA VALENTE Address: [place] [address] Name: DAHIANA FLORES Address: home [address] [place] [address] Name: DOUGLAS KENNY Address: home [place], [place] Name: JAQUELIN KENNY Address: home [place], [place] Name: MINDY KENNY Address: home [address] [place] [address]
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
--- OUTSIDE RECORDS SUMMARY | 2024-01-25 10:10 | XMS_ITS | Continuity of Care Document ---
Author Organization [facility] Address [address] [place] [address]- Care Team Providers Care Parish Visitor Name Role Phone Gustavo HARRIS, Yvette Robert Primary Care Physician [phone] [facility]counter [facility] Date(s): 07/26/22 - 08/25/[address] [address]- Allergies, Adverse Reactions, Alerts Substance Reaction Severity [...] vaccine, inactivated 04/03/12 Give n SARS-CoV-2 mRNA ([id number]) vax 02/13/22 Given SARS-CoV-2 (COVID-19) mRNA BNT-162b2 [...] Comment: normal saline diluent added lot number [id number] expires 10/20/2022 2Admin Note: VIS given 05/16/2011 [...] Maintenance, 05/22/22 15:06:00 EDT, ER Tablet, [id number], Partial fill upon patient request if the prescription is for a schedule II opioid drug., 153, c... Start Date: 05/22/22 Status: Ordered Air conditioner Air conditioner, See Instructions, # 1 each, Refills 0, Tot. Refills 0, Maintenance, To use to keepthe room cool in the summer Dx: COPD on home oxygen, J43.9, Z99.81 CHARANJIT 99 Please fax to [employer], 11/11/19 13:40:00 EDT, Supply Start Date: 11/11/19 Status: Ordered Air Conditioner Air Conditioner, See Instructions, # 1 each, Refills 0, Tot. Refills 0, Maintenance, Dx: COPD J44.9To help avoid exacerbations CHARANJIT 99 Please fax to [facility], 12/30/20 13:22:00 EDT, Supply Start Date: 12/30/20 Status: Ordered albuterol 0.083% inhalation solution 1 vials, Inhalation, Every 4 to 6 hours, PRN NEEDED FOR WHEEZE, # 540 mL, 1 Refills, 07/12/22 15:39:00 EST, [id number], 153, [...] tablet, 1 Refills, Maintenance, 02/13/22 10:56:00 EDT, [facility]/pharmacy#[id number], 153, cm, 02/13/22 10:35:00 EDT, Height, 57, kg, 12/14/21 7:22:00 EDT, Dry Weight Start Date: 02/13/22 Status: Ordered Clonazepam = 1 mg, By [...] 3 Refills, Maintenance, 11/01/21 8:57:00 EDT, Gel, [facility]/pharmacy #[id number], Partial fill upon patient request [...] 2 Refills, Maintenance, 02/13/22 10:52:00 EDT, Capsule, [facility]/pharmacy #[id number], Partial fill upon patient request [...] 5 Refills, Maintenance,04/04/22 8:40:00 EDT, [facility], 153, cm, 02/13/22 10:35:00 EDT, Height, 57, kg, 12/14/21 7:22:00 EDT, Dry Weight Start Date: 04/04/22 Status: Ordered lamotrigine 25 mg oral tablet 1, tablet, By Mouth, Daily, # 90 tablet, Refills 1, Route to Pharmacy Electronically, [facility], 158, cm, 04/18/21 10:02:00 EDT, Height, 63, kg, 07/10/19 11:28:00 EST, Dry Weight Start Date: 06/10/21 Status: Ordered lisinopril 2.5 mg oral tablet 1, tablet, By Mouth, Daily, # 90 tablet, Refills 1, Tot. Refills 1, 12/07/21 14:42:00 EDT, Route toPharmacy Electronically, [facility]/pharmacy #[id number], 152, cm, 11/22/21 11:54:00 EDT, Height, 52.9, kg, 11/17/21 14:38:00 EDT, Dry Weight Start Date: 12/07/21 Status: Ordered Lubriderm Advanced Therapy topical lotion See Instructions, Topically 4 times a day, # 1 each, 1 Refills, Maintenance, 08/18/22 16:46:00 EST,[facility]/pharmacy #[id number], Partial fill upon patient request [...] 60 tablet, 0 Refills, Maintenance,11/07/21 16:47:00 EDT, [facility]/pharmacy #[id number], 158, cm, 11/01/21 8:21:00 EDT, [...] 0 Refills, Maintenance, 07/28/22 8:34:00 EST, Patch, [facility]/pharmacy #[id number], Partial fill upon patient request if the prescription is for a schedule II opioid drug., 1 patch Topically Daily,... Start Date: 07/28/22 Status: Ordered omeprazole 20 mg oral enteric coated capsule 1 capsule, By Mouth, 2 times a day, # 60 capsule, 2 Refills, 06/21/22 8:34:00 EST, [facility]/pharmacy #[id number], 153, cm, 02/13/22 10:35:00 EDT, Height, 57, kg, 12/14/21 7:22:00 EDT, Dry Weight Start Date: 06/21/22 Status: Ordered ondansetron 4 mg oral tablet 1 tablet = 4 mg, By Mouth, Every 8 hours, PRN as needed for nausea/vomiting, # 12 tablet, 1 Refills, Maintenance, 07/12/22 15:38:00 EST, Tablet, [facility]/pharmacy #[id number], Partial fill upon patient request [...] N39.3 4/day CHARANJIT 99 Please fax to: [phone] [facility] one care attn to Linda [...] Refills, Maintenance, 03/03/21 15:57:00 EDT, REC Powder, [facility]/pharmacy #7511, Partial fill upon patientrequest if the prescription is for a schedule II op... Start Date: 03/03/21 Status: Ordered Pulse oximeter Pulse oximeter, See Instructions, # 1 each, Refills 0, Tot. Refills 0, Maintenance, Use to monitor home O2 sat Dx: COPD, h/o lung cancer, chronic hypoxia, on home oxygen therapy CHARANJIT 99 Please fax to [facility], 08/16/22 14:14:00 EST, Supply Start Date: 08/16/22 Status: Ordered simethicone 80 mg oral tablet, chewable 80 mg, 1, tablet, Chew, 3 times a day after meals and bedtime, PRN, for 30 days, # 100 tablet, Refills 1, Tot. Refills 1, Acute 09/10/22 15:38:00 EST, Dyspepsia, 07/12/22 15:38:00 EST, Route to Pharmacy Electronically, [facility]/pharmacy #[id number], Partial fill... 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 PTSD - Post-traumatic [...] Hughes RN Position: [facility] PCO RN Member Role: Primary Care Nurse [...] Member Role: Primary Care Nurse Address: Address: [address] [place] [address]- Name: Yvette Chen MD Position: [facility] Primary Care Physician Member Role: PCP Address: Address: [address] [place] [address]- Name: Linda Haile RN [facility] Care Nurse Name: Roshni Olivia RN Position: [facility] RN [...] Parks RN Position: [facility] ED RN W/OE and Tasks Member Role: Primary Care Nurse Name: Mindy Lara RN Position: [facility] RN Member Role: Primary Care Nurse Name: Dalila Workman RN Position: [facility] RN Member Role: Primary Care Nurse Name: Patsy Bailey RN Position: [facility] RN Member Role: Primary Care Nurse Name: Richard Mensah MD Position: [facility] Psychiatry MD Member Role: Lifetime Consulting Physician Address: Address: [address] [place] [address]- [place] Care Team Related Persons Name: DAHIANA VALENTE Address: home [place], [place] Name: DAHIANA FLORES Address: home [address] [place], [place] Name: DOUGLAS KENNY Address: [place], [place] Name: JAQUELIN KENNY Address: home [place], [place] Name: MINDY KENNY Address: home [address] [place], [place]
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
--- OUTSIDE RECORDS SUMMARY | 2024-01-25 10:10 | XMS_ITS | Continuity of Care Document ---
Author Organization [facility] Address [address] [place] [address]- Care Team Providers Care Dinkey Dispatcher Name Role Phone Gustavo HARRIS, Yvette Robert Primary Care Physician Encounter [facility] Date(s): 10/15/23 - 11/14/[address] [address]- Allergies, Adverse Reactions, Alerts Substance Reaction Severity Status traZODONE Active Depakote Active Talwin Active Tylox Active Tylenol 1 Resolved 1pt stated she [...] vaccine, inactivated 04/03/12 Give n SARS-CoV-2 mRNA (jhyoset-[id number]-[id number]) vax 02/13/22 Given SARS-CoV-2 (COVID-19) mRNA BNT-162b2 [...] Comment: normal saline diluent added lot number [id number] expires 10/20/2022 2Admin Note: VIS given 05/16/2011 [...] J43.9, Z99.81 CHARANJIT 99 Please fax to [employer], 11/11/19 13:40:00 EDT, Supply Start Date: 11/11/19 Status: Ordered Air Conditioner Air Conditioner, See Instructions, # 1 each, Refills 0, Tot. Refills 0, Maintenance, Dx: COPD J44.9To help avoid exacerbations CHARANJIT 99 Please fax to [employer] [facility], 12/30/20 13:22:00 EDT, Supply Start Date: 12/30/20 Status: Ordered albuterol 0.083% inhalation solution 1 vials, Inhalation, Every 4 to 6 hours, PRN NEEDED FOR WHEEZE, # 525 mL, 1 Refills, Maintenance, 09/19/23 11:27:00 EST, [facility]/pharmacy #[id number], 153, cm, 08/20/23 14:08:00 EST, Height, 57, kg, 03/24/23 13:41:00 EDT, Dry Weight Start Date: 09/19/23 Status: Ordered albuterol CFC free 90 mcg/inh inhalation aerosol 2, puffs, Inhalation, 4 times a day, PRN, # 1 each, Refills 11, Tot. Refills 11, Maintenance, 11/13/23 14:24:00 EDT, Aerosol, Route to Pharmacy Electronically, [id number], [facility]/pharmacy #[id number], 153, cm, 11/13/23 14:02:00 EDT, H... Start Date: 11/13/23 Status: Ordered Alcohol pads Alcohol pads, See [...] 2 Refills, Maintenance, 12/07/22 15:47:00 EDT, Lotion, [facility]/pharmacy #[id number], Partial fill upon patient request if the prescription is for a schedule II opioid drug., 1 application Topicall... Start Date: 12/07/22 Status: Ordered amLODIPine 10 mg oral tablet 1 tablet, By Mouth, Daily, # 90 tablet, 3 Refills, Maintenance, 08/20/23 14:39:00 EST, [facility]/pharmacy#[id number], 153, cm, 08/20/23 14:08:00 EST, Height, [...] Maintenance, 02/13/22 10:52:00 EDT, Capsule, [facility]/pharmacy #[id number], Partial fill [...] each, 11 Refills, Maintenance, 08/20/2413:39:00 EST, Powder, [facility]/pharmacy #[id number], Partial fill [...] 90 tablet, 0 Refills, Maintenance,09/18/23 10:02:00 EST, [facility]/pharmacy #[id number], 153, cm, 08/20/23 14:08:00 EST, [...] 3, 08/20/23 14:39:00 EST, Route toPharmacy Electronically, [facility]/pharmacy #[id number], 153, cm, 08/20/23 14:08:00 EST, Height, 57, kg, 03/24/23 13:41:00 EDT, Dry Weight Start Date: 08/20/23 Status: Ordered Lubriderm Advanced Therapy topical lotion See Instructions, Topically 4 times a day, # 1 each, 1 Refills, Maintenance, 08/20/23 14:41:00 EST,[id number], Partial fill upon patient request [...] film, extended release 1 patch, Topically, Daily, for 21 days, # 21 patch, 0 Refills, Acute 12/04/23 14:25:00 EDT, 11/13/23 14:25:00 EDT, Patch, [id number], Partial fill upon patient request if the prescription is for a schedule II opioid drug., 1 patch Topically Da... Start Date: 11/13/23 Stop Date: 12/04/23 Status: Ordered Nicotine 7 mg/24 hour patch 1 patch, Topically, Daily, for 21 days, # 21 patch, 0 Refills, Acute 12/04/23 14:25:00 EDT, 11/13/23 14:25:00 EDT, Patch, [facility]/pharmacy #[id number], Partial fill upon patient request if the prescription is for a schedule II opioid drug., 1 patch Topically Da... Start Date: 11/13/23 Stop Date: 12/04/23 Status: Ordered Oxygen PRN 24 hours, 0 [...] 3 prabhakar... Start Date: 12/13/21 Status: Ordered Trelegy Ellipta 200 mcg-62.5 mcg-25 mcg/inh inhalation powder 1 puffs, Inhalation, Daily, at the same time every day, # 1 each, 11 Refills, Maintenance, 11/12/2413:23:00 EDT, Powder, [id number], Partial fill upon [...] considering TKR with [facility] 12/2019 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 *[phone] [employer] Argenis Sanchez 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 PTSD - Post-traumatic [...] Team Personnel Name: Tresa Ramos RN Position: [facility] SN RN Member Role: Primary Care Nurse Name: Nic Lopez RN Position: [facility] RN Member Role: Primary Care Nurse Name: Roshni Rm RN Position: [facility] RN Member Role: Primary Care Nurse Name: Barbara Hughes RN Position: [facility] AMB Nurse Member Role: Primary Care Nurse Name: Donna Kirk RN Position: [facility] SN RN Member Role: Primary Care Nurse Name: Gabrielle Ramires RN Position: [facility] RN Member Role: Primary Care Nurse Name: Serina Leonard RN Position: [facility] RN Supv Member Role: Primary Care Nurse Name: Christiano Sidhu RN Position: [facility] RN Member Role: Primary Care Nurse Name: Blanquita Jackson RN Position: [facility] RN Member Role: Primary Care Nurse Name: Mindy Armendariz RN Position: [facility] Onco RN Member Role: Primary Care Nurse Name: Jessica Foster RN Position: [facility] RN Member Role: Primary Care Nurse Name: Tianna Barber RN Position: [facility] RN Member Role: Primary Care Nurse Name: Viji Bess RN Position: [facility] RN Member Role: Primary Care Nurse Name: Norma Dillard NP Position: [facility] PCO Associate Professional Member Role: Primary Care Nurse Address: Address: [address] [place] [address]- [place] Name: Yvette Chen MD Position: [facility] Physician - Primary Care Member Role: PCP Address: Address: [address] [place] [address]- [place] Name: Gi Lin LPN Position: [facility] RN Member Role: Primary Care Nurse Name: Linda Haile RN Position: [facility] RN Member Role: Primary Care Nurse Name: Joanna Li RN Position: [facility] RN Member Role: Primary Care Nurse Name: Candy Li RN Position: [facility] RN Member Role: Primary Care Nurse Name: Rakel Kenyon RN Position: [facility] Onco RN Member Role: Primary Care Nurse Name: Linda Crews RN Position: [facility] RN Member Role: Primary Care Nurse Name: Sergey Coon RN Position: [facility] RN Member Role: Primary Care Nurse Name: Nga Vaca RN Position: [facility] RN Member Role: Primary Care Nurse Name: Evangelina Hudson RN Position: [facility] RN Member Role: Primary Care Nurse Name: Lovely Goldman RN Position: [facility] Onco RN Member Role: Primary Care Nurse Name: Raudel Maciel RN Position: [facility] RN Member Role: Primary Care Nurse Name: Yo Zapien RN Position: [facility] RN Member Role: Primary Care Nurse Name: Max Parks RN Position: [facility] RN Member Role: Primary Care Nurse Name: Layla Clinton RN Position: [facility] RN Member Role: Primary Care Nurse Name: Dalila Workman RN Position: [facility] RN Member Role: Primary Care Nurse Name: Patsy Bailey RN Position: [facility] RN Member Role: Primary Care Nurse Name: Richard Mensah MD Position: [facility] Physician - [facility] Member Role: Lifetime Consulting Physician Address: Address: [address] [place] [address]- [place] Care Team Related Persons Name: DAHIANA VALENTE Address: home [place], [place] Name: DAHIANA FLORES Address: home [address] [place] [address] Name: DOUGLAS KENNY Address: home [place], [place] Name: JAQUELIN KENNY Address: [place], [place] Name: MINDY KENNY Address: home [address] [place] [address]
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
--- OUTSIDE RECORDS SUMMARY | 2024-01-25 10:11 | XMS_ITS | Continuity of Care Document ---
Author Organization 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 Name Role Phone Gustavo HARRIS, Yvette Robert Primary Care Physician [phone] Encounter [facility] Date(s): 10/11/23 - 11/10/[address] [address]- Allergies, Adverse Reactions, Alerts Substance Reaction Severity [...] vaccine, inactivated 04/03/12 Give n SARS-CoV-2 mRNA ([id number]) vax 02/13/22 Given SARS-CoV-2 (COVID-19) mRNA BNT-162b2 [...] Comment: normal saline diluent added lot number [id number] expires 10/20/2022 2Admin Note: VIS given 05/16/2011 [...] J43.9, Z99.81 CHARANJIT 99 Please fax to [employer], 11/11/19 13:40:00 EDT, Supply Start Date: 11/11/19 Status: Ordered Air Conditioner Air Conditioner, See Instructions, # 1 each, Refills 0, Tot. Refills 0, Maintenance, Dx: COPD J44.9To help avoid exacerbations CHARANJIT 99 Please fax to [facility], 12/30/20 13:22:00 EDT, Supply Start Date: 12/30/20 Status: Ordered albuterol 0.083% inhalation solution 1 vials, Inhalation, Every 4 to 6 hours, PRN NEEDED FOR WHEEZE, # 525 mL, 1 Refills, Maintenance, 09/19/23 11:27:00 EST, [facility]/pharmacy #[id number], 153, cm, 08/20/23 14:08:00 EST, [...] 2 Refills, Maintenance, 12/07/22 15:47:00 EDT, Lotion, [facility]/pharmacy #[id number], Partial fill upon patient request if the prescription is for a schedule II opioid drug., 1 application Topicall... Start Date: 12/07/22 Status: Ordered amLODIPine 10 mg oral tablet 1 tablet, By Mouth, Daily, # 90 tablet, 3 Refills, Maintenance, 08/20/23 14:39:00 EST, [facility]/pharmacy#[id number], 153, cm, 08/20/23 14:08:00 EST, Height, 57, [...] 2 Refills, Maintenance, 02/13/22 10:52:00 EDT, Capsule, [facility]/pharmacy #[id number], Partial fill upon patient request [...] each, 11 Refills, Maintenance, 08/20/2413:39:00 EST, Powder, [facility]/pharmacy #[id number], Partial fill upon patient request [...] 90 tablet, 0 Refills, Maintenance,09/18/23 10:02:00 EST, [facility]/pharmacy #[id number], 153, cm, 08/20/23 14:08:00 EST, [...] 3, 08/20/23 14:39:00 EST, Route toPharmacy Electronically, [facility]/pharmacy #[id number], 153, cm, 08/20/23 14:08:00 EST, Height, 57, kg, 03/24/23 13:41:00 EDT, Dry Weight Start Date: 08/20/23 Status: Ordered Lubriderm Advanced Therapy topical lotion See Instructions, Topically 4 times a day, # 1 each, 1 Refills, Maintenance, 08/20/23 14:41:00 EST,[facility]/pharmacy #[id number], Partial fill upon patient request if the [...] considering TKR with [facility] 12/2019 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 *[phone] 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 PTSD - Post-traumatic [...] Team Personnel Name: Tresa Ramos RN Position: [facility] SN RN Member Role: Primary Care Nurse Name: Nic Lopez RN Position: [facility] RN Member Role: Primary Care Nurse Name: Roshni Rm RN Position: [facility] RN Member Role: Primary Care Nurse Name: Barbara Hughes RN Position: [facility] AMB Nurse Member Role: Primary Care Nurse Name: Donna Kirk RN Position: [facility] SN RN Member Role: Primary Care Nurse Name: Gabrielle Ramires RN Position: [facility] RN Member Role: Primary Care Nurse Name: Serina Leonard RN Position: [facility] RN Supv Member Role: Primary Care Nurse Name: Christiano Sidhu RN Position: [facility] RN Member Role: Primary Care Nurse Name: Blanquita Jackson RN Position: [facility] RN Member Role: Primary Care Nurse Name: Mindy Armendariz RN Position: [facility] Onco RN Member Role: Primary Care Nurse Name: Jessica Foster RN Position: [facility] RN Member Role: Primary Care Nurse Name: Tianna Barber RN Position: [facility] RN Member Role: Primary Care Nurse Name: Viji Bess RN Position: [facility] RN Member Role: Primary Care Nurse Name: Norma Dillard NP Position: [facility] PCO Associate Professional Member Role: Primary Care Nurse Address: Address: [address] [place] [address]- Name: Yvette Chen MD Position: [facility] Physician - Primary Care Member Role: PCP Address: Address: [address] [place] [address]- Name: Gi Lin LPN Position: [facility] RN Member Role: Primary Care Nurse Name: Linda Haile RN Position: [facility] RN Member Role: Primary Care Nurse Name: Joanna Li RN Position: [facility] RN Member Role: Primary Care Nurse Name: Candy Li RN Position: [facility] RN Member Role: Primary Care Nurse Name: Rakel Kenyon RN Position: [facility] Onco RN Member Role: Primary Care Nurse Name: Linda Crews RN Position: [facility] RN Member Role: Primary Care Nurse Name: Sergey Coon RN Position: [facility] RN Member Role: Primary Care Nurse Name: Nga Vaca RN Position: [facility] RN Member Role: Primary Care Nurse Name: Evangelina Hudson RN Position: [facility] RN Member Role: Primary Care Nurse Name: Lovely Goldman RN Position: [facility] Onco RN Member Role: Primary Care Nurse Name: Raudel Maciel RN Position: [facility] RN Member Role: Primary Care Nurse Name: Yo Zapien RN Position: [facility] RN Member Role: Primary Care Nurse Name: Max Parks RN Position: [facility] RN Member Role: Primary Care Nurse Name: Layla Clinton RN Position: [facility] RN Member Role: Primary Care Nurse Name: Dalila Workman RN Position: [facility] RN Member Role: Primary Care Nurse Name: Patsy Bailey RN Position: [facility] RN Member Role: Primary Care Nurse Name: Richard Mensah MD Position: [facility] Physician - Behavioral Health Member Role: Lifetime Consulting Physician Address: Address: [address] [place] [address]- [place] Care Team Related Persons Name: DAHIANA VALENTE Address: home [place], [place] Name: DAHIANA FLORES Address: home [address] [place] [address] Name: DOUGLAS KENNY Address: home [place], [place] Name: JAQUELIN KENNY Address: [place], [place] Name: MINDY KENNY Address: home [address] [place] [address]
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
--- OUTSIDE RECORDS SUMMARY | 2024-01-25 10:11 | XMS_ITS | Continuity of Care Document ---
Author Organization [facility] Address [address] [place] [address]- Care Team Providers Care Senior Fund Accountant Name Role Phone Gustavo HARRIS, Yvette Robert Primary Care Physician [phone] Encounter [facility] Date(s): 12/05/23 - 01/04/[address] [address]- Allergies, Adverse Reactions, Alerts Substance Reaction Severity [...] vaccine, inactivated 04/03/12 Give n SARS-CoV-2 mRNA ([id number]-ughs-vknin) vax 02/13/22 Given SARS-CoV-2 (COVID-19) mRNA BNT-162b2 [...] Comment: normal saline diluent added lot number [id number] expires 10/20/2022 2Admin Note: VIS given 05/16/2011 3Admin Note: VIS 10/10/2005 4Admin Note: vis 08/15/11 5Admin Note: vis Medications acetaminophen 650 mg oral tablet, extended release 1 tablet, By Mouth, Every 8 hours, PRN NEEDED FOR MODERATE PAIN, # 90 tablet, 5 Refills, Maintenance, 08/20/23 14:40:00 EST, [facility]/pharmacy #[id number], 153, cm, 08/20/23 14:08:00 EST, Height, 57, kg, 03/24/23 13:41:00 EDT, Dry Weight Start Date: 08/20/23 Status: Ordered albuterol 0.083% inhalation solution 1 vials, Inhalation, Every 4 to 6 hours, PRN NEEDED FOR WHEEZE, # 525 mL, 1 Refills, Maintenance, 09/19/23 11:27:00 EST, [facility]/pharmacy #[id number], 153, cm, 08/20/23 14:08:00 EST, Height, 57, kg, 03/24/23 13:41:00 EDT, Dry Weight Start Date: 09/19/23 Status: Ordered albuterol CFC free 90 mcg/inh inhalation aerosol 2, puffs, Inhalation, 4 times a day, PRN, # 1 each, Refills 11, Tot. Refills 11, Maintenance, 11/13/23 14:24:00 EDT, Aerosol, Route to Pharmacy Electronically, [id number], [facility]/pharmacy #[id number], 153, cm, 11/13/23 14:02:00 EDT, H... [...] 0 Refills, Maintenance, 12/05/23 13:46:00 EDT, Gel, [facility]/pharmacy #[id number], Partial fill upon patient request if [...] 3, 08/20/23 14:39:00 EST, Route toPharmacy Electronically, [facility]/pharmacy #[id number], 153, cm, 08/20/23 14:08:00 EST, Height, 57, kg, 03/24/23 13:41:00 EDT, Dry Weight Start Date: 08/20/23 Status: Ordered Lubriderm Advanced Therapy topical lotion See Instructions, Topically 4 times a day, # 1 each, 1 Refills, Maintenance, 08/20/23 14:41:00 EST,[facility]/pharm[facility] #[id number], Partial fill upon patient request if [...] 01/25/24 16:19:00 EDT, 12/28/23 16:19:00 EDT, Patch, [facility]/pharmacy #4471, Partial fill upon patient request if [...] each, 11 Refills, Maintenance, 11/12/2413:23:00 EDT, Powder, [facility]/pharmacy #2531, Partial fill upon patient request if [...] considering TKR with [facility] 12/2019 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 *[phone] Philanthropy Officer Argenis Sanchez 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 PTSD - Post-traumatic [...] Team Personnel Name: Tresa Ramos RN Position: [facility] SN RN Member Role: Primary Care Nurse Name: Nic Lopez RN Position: [facility] RN Member Role: Primary Care Nurse Name: Roshni Rm RN Position: [facility] RN Member Role: Primary Care Nurse Name: Barbara Hughes RN Position: [facility] AMB Nurse Member Role: Primary Care Nurse Name: Donna Kirk RN Position: [facility] SN RN Member Role: Primary Care Nurse Name: Gabrielle Ramires RN Position: [facility] RN Member Role: Primary Care Nurse Name: Serina Leonard RN Position: [facility] RN Supbrian Member Role: Primary Care Nurse Name: Christiano Sidhu RN Position: [facility] RN Member Role: Primary Care Nurse Name: Blanquita Jackson RN Position: [facility] RN Member Role: Primary Care Nurse Name: Mindy Armendariz RN Position: [facility] Onco RN Member Role: Primary Care Nurse Name: Jessica Foster RN Position: [facility] RN Member Role: Primary Care Nurse Name: Tianna Barber RN Position: [facility] RN Member Role: Primary Care Nurse Name: Viji Bess RN Position: [facility] RN Member Role: Primary Care Nurse Name: Nishant MENGNorma Position: [facility] PCO Associate Professional Member Role: Primary Care Nurse Address: Address: [address] [place] [address]- [place] Name: Yvette Chen MD Position: [facility] Physician - Primary Care Member Role: PCP Address: Address: [address] [place] [address]- [place] Name: Linda Haile RN Position: [facility] RN Member Role: Primary Care Nurse Name: Joanna Li RN Position: [facility] RN Member Role: Primary Care Nurse Name: Candy Li RN Position: [facility] RN Member Role: Primary Care Nurse Name: Rakel Kenyon RN Position: [facility] Onco RN Member Role: Primary Care Nurse Name: Linda Crews RN Position: [facility] RN Member Role: Primary Care Nurse Name: Sergey Coon RN Position: [facility] RN Member Role: Primary Care Nurse Name: Nga Vaca RN Position: [facility] RN Member Role: Primary Care Nurse Name: Evangelina Hudson RN Position: [facility] RN Member Role: Primary Care Nurse Name: Lovely Goldman RN Position: [facility] Onco RN Member Role: Primary Care Nurse Name: Raudel Maciel RN Position: [facility] RN Member Role: Primary Care Nurse Name: Yo Zapien RN Position: [facility] RN Member Role: Primary Care Nurse Name: Max Parks RN Position: [facility] RN Member Role: Primary Care Nurse Name: Layla Clinton RN Position: [facility] RN Member Role: Primary Care Nurse Name: Dalila Workman RN Position: [facility] RN Member Role: Primary Care Nurse Name: Patsy Bailey RN Position: [facility] RN Member Role: Primary Care Nurse Name: Richard Mensah MD Position: [facility] Physician - Behavioral Health Member Role: Lifetime Consulting Physician Address: Address: [address] [place] [address]- [place] Care Team Related Persons Name: DAHIANA VALENTE Address: [place] [address] Name: DAHIANA FLORES Address: [address] [place] [address] Name: DOUGLAS KENNY Address: [place] [address] Name: JAQUELIN KENNY Address: [place] [address] Name: MINDY KENNY Address: home [address] [place] [address]
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
--- OUTSIDE RECORDS SUMMARY | 2024-01-25 10:11 | XMS_ITS | Continuity of Care Document ---
Author Organization [facility] Address [address] [place] [address]- Care Team Providers Care Statistical Methods Teacher Name Role Phone Gustavo HARRIS, Yvette Robert Primary Care Physician Encounter [facility] Date(s): 06/11/23 - 07/11/[address] [address]- Allergies, Adverse Reactions, Alerts Substance Reaction Severity [...] vaccine, inactivated 04/03/12 Give n SARS-CoV-2 mRNA (kdfhlpb-kxzb-obcit) vax 02/13/22 Given SARS-CoV-2 (COVID-19) mRNA BNT-162b2 [...] Comment: normal saline diluent added lot number [id number] expires 10/20/2022 2Admin Note: VIS given 05/16/2011 [...] tablet, 5 Refills, Maintenance, 11/23/22 16:14:00 EDT, [facility], 153, cm, 11/10/22 9:00:00 EDT, Height, 57, kg, 12/14/21 7:22:00 EDT, Dry Weight Start Date: 11/23/22 Status: Ordered Air conditioner Air conditioner, See Instructions, # 1 each, Refills 0, Tot. Refills 0, Maintenance, To use to keepthe room cool in the summer Dx: COPD on home oxygen, J43.9, Z99.81 CHARANJIT 99 Please fax to [facility], 11/11/19 13:40:00 EDT, Supply Start Date: 11/11/19 Status: Ordered Air Conditioner Air Conditioner, See Instructions, # 1 each, Refills 0, Tot. Refills 0, Maintenance, Dx: COPD J44.9To help avoid exacerbations CHARANJIT 99 Please fax to [facility], 12/30/20 13:22:00 EDT, Supply Start Date: 12/30/20 Status: Ordered albuterol 0.083% inhalation solution 1 vials, Inhalation, Every 4 to 6 hours, PRN NEEDED FOR WHEEZE, # 540 mL, 1 Refills, 07/12/22 15:39:00 EST, [facility]/pharmacy #[id number], 153, cm, 07/12/22 15:08:00 EST, [...] 2 Refills, Maintenance, 12/07/22 15:47:00 EDT, Lotion, [facility]/pharmacy #[id number], Partial fill upon patient request if the prescription is for a schedule II opioid drug., 1 application Topicall... Start Date: 12/07/22 Status: Ordered amLODIPine 10 mg oral tablet 1 tablet, By Mouth, Daily, # 90 tablet, 3 Refills, Maintenance, 03/13/23 14:46:00 EDT, [facility]/pharmacy#[id number], 153, cm, 12/07/22 9:17:00 EDT, Height, [...] Refills, Maintenance, 05/03/23 11:09:00 EDT, [facility], 153, cm, 04/20/23 10:44:00 EDT, Height, 57,kg, [...] 1 each, 1 Refills, Maintenance, 08/18/22 16:46:00 EST,[facility]/pharmacy #[id number], Partial fill upon patient request if the [...] N39.3 4/day CHARANJIT 99 Please fax to: [phone] [facility] one care attn to Linda Nathan, 02/07/21 [...] 18 Gm, 5 Refills, 03/13/23 14:46:00 EDT, [facility]/pharmacy #[id number], 153, cm, 12/07/22 9:17:00 EDT, [...] with [facility] 12/2019 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, 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, 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 Evans, 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 PTSD - Post-traumatic [...] Team Personnel Name: Tresa Ramos RN Position: [facility] SN RN Member Role: Primary Care Nurse Name: Nic Lopez RN Position: [facility] RN Member Role: Primary Care Nurse Name: Roshni Rm RN Position: [facility] RN Member Role: Primary Care Nurse Name: Barbara Hughes RN Position: [facility] AMB Nurse Member Role: Primary Care Nurse Name: Donna Kirk RN Position: [facility] SN RN Member Role: Primary Care Nurse Name: Gabrielle Ramires RN Position: [facility] RN Member Role: Primary Care Nurse Name: Serina Leonard RN Position: [facility] RN Supv Member Role: Primary Care Nurse Name: Christiano Sidhu RN Position: [facility] RN Member Role: Primary Care Nurse Name: Blanquita Jackson RN Position: [facility] RN Member Role: Primary Care Nurse Name: Efren RN, Mindy Smith Position: [facility] Onco RN Member Role: Primary Care Nurse Name: Jessica Foster RN Position: [facility] RN Member Role: Primary Care Nurse Name: Tianna Barber RN Position: [facility] RN Member Role: Primary Care Nurse Name: Viji Bess RN Position: [facility] RN Member Role: Primary Care Nurse Name: Norma Dillard NP Position: [facility] PCO Associate Professional Member Role: Primary Care Nurse Address: Address: [address] [place] [address]- Name: Yvette Chen MD Position: [facility] Physician - Primary Care Member Role: PCP Address: Address: [address] [place] [address]- Name: Gi Lin LPN Position: [facility] RN Member Role: Primary Care Nurse Name: Linda Haile RN Position: [facility] RN Member Role: Primary Care Nurse Name: Joanna Li RN Position: [facility] RN Member Role: Primary Care Nurse Name: Candy Li RN Position: [facility] RN Member Role: Primary Care Nurse Name: Rakel Kenyon RN Position: [facility] Onco RN Member Role: Primary Care Nurse Name: Linda Crews RN Position: [facility] RN Member Role: Primary Care Nurse Name: Sergey Coon RN Position: [facility] RN Member Role: Primary Care Nurse Name: Nga Vaca RN Position: [facility] RN Member Role: Primary Care Nurse Name: Evangelina Hudson RN Position: [facility] RN Member Role: Primary Care Nurse Name: Lovely Goldman RN Position: [facility] RN Member Role: Primary Care Nurse Name: Raudel Maciel RN Position: [facility] RN Member Role: Primary Care Nurse Name: Yo Zapien RN Position: [facility] RN Member Role: Primary Care Nurse Name: Max Parks RN Position: [facility] RN Member Role: Primary Care Nurse Name: Layla Clinton RN Position: [facility] RN Member Role: Primary Care Nurse Name: Dalila Workman RN Position: [facility] RN Member Role: Primary Care Nurse Name: Patsy Bailey RN Position: [facility] RN Member Role: Primary Care Nurse Name: Richard Mensah MD Position: [facility] Physician - Behavioral Health Member Role: Lifetime Consulting Physician Address: Address: [address] [place] [address]- Care Team Related Persons Name: SIDRA DAHIANA Address: [place] [address] Name: DAHIANA FLORES Address: home [address] [place] [address] Name: DOUGLAS KENNY Address: [place], [place] Name: JAQUELIN KENNY Address: home [place], [place] Name: MINDY KENNY Address: home [address] [place] [address]
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
--- OUTSIDE RECORDS SUMMARY | 2024-01-25 10:11 | XMS_ITS | Continuity of Care Document ---
Author Organization [facility] Address [address] [place] [address]- Care Team Providers Care Clinical Support Nurse Name Role Phone Gustavo HARRIS, Yvette Robert Primary Care Physician [phone] Encounter [facility] Date(s): 09/19/23 - 10/19/[address] [address]- Allergies, Adverse Reactions, Alerts Substance Reaction Severity Status Talwin Active traZODONE Active Depakote Active Tylox Active Tylenol 1 Resolved 1pt [...] vaccine, inactivated 04/03/12 Give n SARS-CoV-2 mRNA ([id number]-[id number]) vax 02/13/22 Given SARS-CoV-2 (COVID-19) mRNA BNT-162b2 [...] Comment: normal saline diluent added lot number [id number] expires 10/20/2022 2Admin Note: VIS given 05/16/2011 [...] J43.9, Z99.81 CHARANJIT 99 Please fax to [employer] [facility], 11/11/19 13:40:00 EDT, Supply Start Date: 11/11/19 Status: Ordered Air Conditioner Air Conditioner, See Instructions, # 1 each, Refills 0, Tot. Refills 0, Maintenance, Dx: COPD J44.9To help avoid exacerbations CHARANJIT 99 Please fax to [facility], 12/30/20 13:22:00 EDT, Supply Start Date: 12/30/20 Status: Ordered albuterol 0.083% inhalation solution 1 vials, Inhalation, Every 4 to 6 hours, PRN NEEDED FOR WHEEZE, # 525 mL, 1 Refills, Maintenance, 09/19/23 11:27:00 EST, [facility]/pharmacy #[id number], 153, cm, 08/20/23 14:08:00 EST, Height, [...] 2 Refills, Maintenance, 12/07/22 15:47:00 EDT, Lotion, [facility]/pharmacy #4471, Partial fill upon patient request if the prescription is for a schedule II opioid drug., 1 application Topicall... Start Date: 12/07/22 Status: Ordered amLODIPine 10 mg oral tablet 1 tablet, By Mouth, Daily, # 90 tablet, 3 Refills, Maintenance, 08/20/23 14:39:00 EST, [facility]/pharmacy#4471, 153, cm, 08/20/23 14:08:00 EST, Height, 57, [...] 2 Refills, Maintenance, 02/13/22 10:52:00 EDT, Capsule, [facility]/pharmacy #4471, Partial [...] each, 11 Refills, Maintenance, 08/20/2413:39:00 EST, Powder, [facility]/pharmacy #4471, Partial fill [...] 90 tablet, 0 Refills, Maintenance,09/18/23 10:02:00 EST, [facility]/pharmacy #4471, 153, cm, 08/20/23 14:08:00 EST, Height, [...] 3, 08/20/23 14:39:00 EST, Route toPharmacy Electronically, [facility]/pharmacy #4471, 153, cm, 08/20/23 14:08:00 EST, Height, 57, kg, 03/24/23 13:41:00 EDT, Dry Weight Start Date: 08/20/23 Status: Ordered Lubriderm Advanced Therapy topical lotion See Instructions, Topically 4 times a day, # 1 each, 1 Refills, Maintenance, 08/20/23 14:41:00 EST,[facility]/pharmacy #5961, Partial fill upon patient request if the [...] disease (CKD), stage 4 - followed by [facility] 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 Cigarette smoker 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 Cirrhosis [...] considering TKR with [facility] 12/2019 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 *[id number] 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 PTSD - Post-traumatic [...] Team Personnel Name: Tresa Ramos RN Position: [facility] SN RN Member Role: Primary Care Nurse Name: Nic Lopez RN Position: [facility] RN Member Role: Primary Care Nurse Name: Roshni Rm RN Position: [facility] RN Member Role: Primary Care Nurse Name: Barbara Hughes RN Position: [facility] AMB Nurse Member Role: Primary Care Nurse Name: Donna Kirk RN Position: [facility] SN RN Member Role: Primary Care Nurse Name: Gabrielle Ramires RN Position: [facility] RN Member Role: Primary Care Nurse Name: Serina eLonard RN Position: [facility] RN Supv Member Role: Primary Care Nurse Name: Crhistiano Sidhu RN Position: [facility] RN Member Role: Primary Care Nurse Name: Blanquita Jackson RN Position: [facility] RN Member Role: Primary Care Nurse Name: Mindy Armendariz RN Position: [facility] Onco RN Member Role: Primary Care Nurse Name: Jessica Foster RN Position: [facility] RN Member Role: Primary Care Nurse Name: Tianna Barber RN Position: [facility] RN Member Role: Primary Care Nurse Name: Viji Bess RN Position: [facility] RN Member Role: Primary Care Nurse Name: Norma Dillard NP Position: [facility] PCO Associate Professional Member Role: Primary Care Nurse Address: Address: [address] [place] [address]- Name: Yvette Chen MD Position: [facility] Physician - Primary Care Member Role: PCP Address: Address: [address] [place] [address]- Name: Gi Lin LPN Position: [facility] RN Member Role: Primary Care Nurse Name: iLnda Haile RN Position: [facility] RN Member Role: Primary Care Nurse Name: Joanna Li RN Position: [facility] RN Member Role: Primary Care Nurse Name: Candy Li RN Position: [facility] RN Member Role: Primary Care Nurse Name: Rakel Kenyon RN Position: [facility] Onco RN Member Role: Primary Care Nurse Name: Linda Crews RN Position: [facility] RN Member Role: Primary Care Nurse Name: Sergey Coon RN Position: [facility] RN Member Role: Primary Care Nurse Name: Nga Vaca RN Position: [facility] RN Member Role: Primary Care Nurse Name: Evangelina Hudson RN Position: [facility] RN Member Role: Primary Care Nurse Name: Lovely Goldman RN Position: [facility] Onco RN Member Role: Primary Care Nurse Name: Raudel Maciel RN Position: [facility] RN Member Role: Primary Care Nurse Name: Yo Zapien RN Position: [facility] RN Member Role: Primary Care Nurse Name: Max Parks RN Position: [facility] RN Member Role: Primary Care Nurse Name: Layla Clinton RN Position: [facility] RN Member Role: Primary Care Nurse Name: Dalila Workman RN Position: [facility] RN Member Role: Primary Care Nurse Name: Patsy Bailey RN Position: [facility] RN Member Role: Primary Care Nurse Name: Richard Mensah MD Position: [facility] Physician - Behavioral Health Member Role: Lifetime Consulting Physician Address: Address: [address] [place] [address]- [place] Care Team Related Persons Name: DAHIANA VALENTE Address: home [place], [place] Name: DAHIANA FLORES Address: home [address] [place] [address] Name: DOUGLAS KENNY Address: home [place], [place] Name: JAQUELIN KENNY Address: [place], [place] Name: MINDY KENNY Address: home [address] [place] [address]
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
--- OUTSIDE RECORDS SUMMARY | 2024-01-25 10:12 | XMS_ITS | Continuity of Care Document ---
Author Organization [facility] ter Address [address] [place] [address]- Care Team Providers Care Alligator Shear Operator Name Role Phone Yvette Chen MD Primary Care Physician [facility]): 12[facility]25/22 - 05/02/[address] [address] Attending Physician: Yvette Chen MD Admitting Physician: Yvette Chen MD Referring Physician: Yvette Chen MD Allergies, Adverse Reactions, Alerts Substance Reaction Severity Status Talwin Active traZODONE Active Tylox Active Tylenol 1 Resolved Depakote [...] vaccine, inactivated 04/03/12 Give n SARS-CoV-2 mRNA (hbuungi-eguh-mbwwm) vax 02/13/22 Given SARS-CoV-2 (COVID-19) mRNA BNT-162b2 [...] Comment: normal saline diluent added lot number [id number] expires 10/20/2022 2Admin Note: VIS given 05/16/2011 [...] tablet, 5 Refills, Maintenance, 11/23/22 16:14:00 EDT, [id number], 153, cm, 11/10/22 9:00:00 EDT, Height, 57, kg, 12/14/21 7:22:00 EDT, Dry Weight Start Date: 11/23/22 Status: Ordered Air conditioner Air conditioner, See Instructions, # 1 each, Refills 0, Tot. Refills 0, Maintenance, To use to keepthe room cool in the summer Dx: COPD on home oxygen, J43.9, Z99.81 CHARANJIT 99 Please fax to [employer], 11/11/19 13:40:00 EDT, Supply Start Date: 11/11/19 Status: Ordered Air Conditioner Air Conditioner, See Instructions, # 1 each, Refills 0, Tot. Refills 0, Maintenance, Dx: COPD J44.9To help avoid exacerbations CHARANJIT 99 Please fax to [facility], 12/30/20 13:22:00 EDT, Supply Start Date: 12/30/20 Status: Ordered albuterol 0.083% inhalation solution 1 vials, Inhalation, Every 4 to 6 hours, PRN NEEDED FOR WHEEZE, # 540 mL, 1 Refills, 07/12/22 15:39:00 EST, [facility]/pharmacy #[id number], 153, cm, 07/12/22 15:08:00 EST, [...] 2 Refills, Maintenance, 12/07/22 15:47:00 EDT, Lotion, [facility]/pharmacy #[id number], Partial fill upon patient request if the prescription is for a schedule II opioid drug., 1 application Topicall... Start Date: 12/07/22 Status: Ordered amLODIPine 10 mg oral tablet 1 tablet, By Mouth, Daily, # 90 tablet, 3 Refills, Maintenance, 03/13/23 14:46:00 EDT, [facility]/pharmacy#[id number], 153, cm, 12/07/22 9:17:00 EDT, Height, [...] each, 11 Refills, Maintenance, 03/13/2314:46:00 EDT, Powder, [facility]/pharmacy #[id number], Partial fill upon patient request [...] 3, 03/13/23 14:46:00 EDT, Route toPharmacy Electronically, [facility]/pharmacy #[id number], 153, cm, 12/07/22 9:17:00 EDT, Height, 57, kg, 12/14/21 7:22:00 EDT, Dry Weight Start Date: 03/13/23 Status: Ordered Lubriderm Advanced Therapy topical lotion See Instructions, Topically 4 times a day, # 1 each, 1 Refills, Maintenance, 08/18/22 16:46:00 EST,[id number], Partial fill upon patient request if the [...] N39.3 4/day CHARANJIT 99 Please fax to: [phone] [facility] one care attn to Linda Russoo, 02/07/21 [...] 18 Gm, 5 Refills, 03/13/23 14:46:00 EDT, [facility]/pharmacy #[id number], 153, cm, 12/07/22 9:17:00 EDT, [...] with [facility] 12/2019 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 CCA N, Meal Miller, Linda Nathan, 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 PTSD - Post-traumatic stress disorder [...] Care Nurse Name: Mindy Schwartz RN Position: [facility] Onco RN Member [...] Member Role: Primary Care Nurse Address: Address: [address] [place] [address]- [place] Name: Yvette Chen MD Position: [facility] Physician - Primary Care Member Role: PCP Address: Address: [address] [place] [address]- [place] Name: Gi Lin LPN Position: [facility] RN Member Role: Primary Care Nurse Name: Linda Haile RN Position: [facility] RN Member Role: Primary Care Nurse Name: Laura Guillermo Position: [facility] RN Member Role: Primary [...] Name: Lovely Goldman RN Position: [facility] RN Member Role: [...] Mensah MD Position: [facility] Physician - [facility] Member Role: Lifetime Consulting Physician Address: Address: [address] [place] [address]- [place] Care Team Related Persons Name: DAHIANA VALENTE Address: [place] [address] Name: DAHIANA FLORES Address: home [address] [place] [address] Name: DOUGLAS KENNY Address: [place], [place] Name: JAQUELIN KENNY Address: home [place], [place] Name: MINDY KENNY Address: home [address] [place] [address]
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
--- OUTSIDE RECORDS SUMMARY | 2024-01-25 10:13 | XMS_ITS | Continuity of Care Document ---
Author Organization [facility] Address [address] [place] [address] [address] [place] [address]- Care Team Providers Care Cigar Bander Hand Name Role Phone Yvette Chen MD Primary Care Physician Encounter [facility] Date(s): 04/05/23 - 05/05/23 [facility] [address] [place] [address] Drive [address] [place], [place] [address] Allergies, Adverse Reactions, Alerts Substance Reaction Severity Status Tylenol 1 Resolved traZODONE Active Talwin Active Tylox Active Depakote Active 1pt stated she takes [...] vaccine, inactivated 04/03/12 Give n SARS-CoV-2 mRNA ([id number]) vax 02/13/22 Given SARS-CoV-2 (COVID-19) mRNA BNT-162b2 [...] Comment: normal saline diluent added lot number [id number] expires 10/20/2022 2Admin Note: VIS given 05/16/2011 [...] tablet, 5 Refills, Maintenance, 11/23/22 16:14:00 EDT, [facility], 153, cm, 11/10/22 9:00:00 EDT, Height, 57, kg, 12/14/21 7:22:00 EDT, Dry Weight Start Date: 11/23/22 Status: Ordered Air conditioner Air conditioner, See Instructions, # 1 each, Refills 0, Tot. Refills 0, Maintenance, To use to keepthe room cool in the summer Dx: COPD on home oxygen, J43.9, Z99.81 CHARANJIT 99 Please fax to [facility], 11/11/19 13:40:00 EDT, Supply Start Date: 11/11/19 Status: Ordered Air Conditioner Air Conditioner, See Instructions, # 1 each, Refills 0, Tot. Refills 0, Maintenance, Dx: COPD J44.9To help avoid exacerbations CHARANJIT 99 Please fax to [facility], 12/30/20 13:22:00 EDT, Supply Start Date: 12/30/20 Status: Ordered albuterol 0.083% inhalation solution 1 vials, Inhalation, Every 4 to 6 hours, PRN NEEDED FOR WHEEZE, # 540 mL, 1 Refills, 12/21/22 15:39:00 EST, [facility]/pharmacy #[id number], 153, cm, 07/12/22 [...] 2 Refills, Maintenance, 12/07/22 15:47:00 EDT, Lotion, [facility]/pharmacy #[id number], Partial fill upon patient request if the prescription is for a schedule II opioid drug., 1 application Topicall... Start Date: 12/07/22 Status: Ordered amLODIPine 10 mg oral tablet 1 tablet, By Mouth, Daily, # 90 tablet, 3 Refills, Maintenance, 03/13/23 14:46:00 EDT, [facility]/pharmacy#4471, 153, cm, 12/07/22 9:17:00 EDT, Height, [...] tablet, 1 Refills, Maintenance, 05/03/23 11:09:00 EDT, [facility], 153, cm, 04/20/23 10:44:00 EDT, Height, 57,kg, [...] 1 each, 1 Refills, Maintenance, 08/18/22 16:46:00 EST,[facility]/pharmacy #8561, Partial fill upon patient request if the [...] N39.3 4/day CHARANJIT 99 Please fax to: [phone] [facility] one care attn to Linda Escamillavedo, [...] 18 Gm, 5 Refills, 03/13/23 14:46:00 EDT, [facility]/pharmacy #[id number], 153, cm, 12/07/22 9:17:00 EDT, [...] with NEOS 12/2019 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 CCA N, Hospitalist, Linda Evans, 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 PTSD - Post-traumatic [...] Team Personnel Name: Tresa Ramos RN Position: [facility] SN RN Member Role: Primary Care Nurse Name: Nic Lopez RN Position: [facility] RN Member Role: Primary Care Nurse Name: Roshni Rm RN Position: [facility] RN Member Role: Primary Care Nurse Name: Barbara Hughes RN Position: [facility] AMB Nurse Member Role: Primary Care Nurse Name: Donna Kirk RN Position: [facility] RN Member Role: Primary Care Nurse Name: Gabrielle Ramires RN Position: [facility] RN Member Role: Primary Care Nurse Name: Serina Leonard RN Position: [facility] RN Supv Member Role: Primary Care Nurse Name: Christaino Sidhu RN Position: [facility] RN Member Role: Primary Care Nurse Name: Blanquita Jackson RN Position: [facility] RN Member Role: Primary Care Nurse Name: Mindy Schwartz RN Position: [facility] Onco RN Member Role: Primary Care Nurse Name: Jessica Foster RN Position: [facility] RN Member Role: Primary Care Nurse Name: Tianna Barber RN Position: [facility] RN Member Role: Primary Care Nurse Name: Viji Bess RN Position: [facility] RN Member Role: Primary Care Nurse Name: Norma [place] NP Position: [facility] PCO Associate Professional Member Role: Primary Care Nurse Address: Address: [address] [place] [address]- Name: Yvette Chen MD Position: [facility] Physician - Primary Care Member Role: PCP Address: Address: [address] [place] [address]- Name: Gi Lin LPN Position: [facility] RN Member Role: Primary Care Nurse Name: Linda Haile RN Position: [facility] RN Member Role: Primary Care Nurse Name: Laura Guillermo Position: [facility] RN Member Role: Primary Care Nurse Name: Joanna Li RN Position: [facility] RN Member Role: Primary Care Nurse Name: Candy Li RN Position: [facility] RN Member Role: Primary Care Nurse Name: Rakel eKnyon RN Position: [facility] Onco RN Member Role: Primary Care Nurse Name: Linda Crews RN Position: [facility] RN Member Role: Primary Care Nurse Name: Sergey Coon RN Position: [facility] RN Member Role: Primary Care Nurse Name: Nga Vaca RN Position: [facility] RN Member Role: Primary Care Nurse Name: Evangelina Hudson RN Position: [facility] RN Member Role: Primary Care Nurse Name: Lovely Goldman RN Position: [facility] RN Member Role: Primary Care Nurse Name: Raudel Maciel RN Position: [facility] RN Member Role: Primary Care Nurse Name: Yo Zapien RN Position: [facility] RN Member Role: Primary Care Nurse Name: Max Parks RN Position: [facility] RN Member Role: Primary Care Nurse Name: Layla Clinton RN Position: [facility] RN Member Role: Primary Care Nurse Name: Dalila Workman RN Position: [facility] RN Member Role: Primary Care Nurse Name: Patsy Bailey RN Position: [facility] RN Member Role: Primary Care Nurse Name: Richard Mensah MD Position: [facility] Physician - Behavioral Health Member Role: Lifetime Consulting Physician Address: Address: [address] [place] [address]- Care Team Related Persons Name: SIDRA DAHIANA Address: [place] [address] Name: DAHIANA FLORES Address: home [address] [place] [address] Name: DOUGLAS KENNY Address: [place], [place] Name: JAQUELIN KENNY Address: home [place], [place] Name: MINDY KENNY Address: home [address] [place] [address]
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
--- OUTSIDE RECORDS SUMMARY | 2024-01-25 10:13 | XMS_ITS | Continuity of Care Document ---
Author Organization [facility] Address [address] [place] [address]- Care Team Providers Care Electro Mechanical Designer Name Role Phone Gustavo HARRIS, Yvette Robert Primary Care Physician [facility]counter [facility] Date(s): 10/16/23 - 11/15/[address] [address]- Allergies, Adverse Reactions, Alerts Substance Reaction Severity [...] vaccine, inactivated 04/03/12 Give n SARS-CoV-2 mRNA ([id number]) vax 02/13/22 Given SARS-CoV-2 (COVID-19) mRNA BNT-162b2 [...] Comment: normal saline diluent added lot number [id number] expires 10/20/2022 2Admin Note: VIS given 05/16/2011 [...] J43.9, Z99.81 CHARANJIT 99 Please fax to [facility], 11/11/19 13:40:00 EDT, Supply Start Date: 11/11/19 Status: Ordered Air Conditioner Air Conditioner, See Instructions, # 1 each, Refills 0, Tot. Refills 0, Maintenance, Dx: COPD J44.9To help avoid exacerbations CHARANJIT 99 Please fax to [facility], 12/30/20 13:22:00 EDT, Supply Start Date: 12/30/20 Status: Ordered albuterol 0.083% inhalation solution 1 vials, Inhalation, Every 4 to 6 hours, PRN NEEDED FOR WHEEZE, # 525 mL, 1 Refills, Maintenance, 09/19/23 11:27:00 EST, [facility]/pharmacy #[id number], 153, cm, 08/20/23 14:08:00 EST, Height, 57, kg, 03/24/23 13:41:00 EDT, Dry Weight Start Date: 09/19/23 Status: Ordered albuterol CFC free 90 mcg/inh inhalation aerosol 2, puffs, Inhalation, 4 times a day, PRN, # 1 each, Refills 11, Tot. Refills 11, Maintenance, 11/13/23 14:24:00 EDT, Aerosol, Route to Pharmacy Electronically, [id number], [facility]/pharmacy #[id number], 153, cm, 11/13/23 14:02:00 EDT, [...] 2 Refills, Maintenance, 12/07/22 15:47:00 EDT, Lotion, [facility]/pharmacy #[id number], Partial fill upon patient request if the prescription is for a schedule II opioid drug., 1 application Topicall... Start Date: 12/07/22 Status: Ordered amLODIPine 10 mg oral tablet 1 tablet, By Mouth, Daily, # 90 tablet, 3 Refills, Maintenance, 08/20/23 14:39:00 EST, [facility]/pharmacy#[id number], 153, cm, 08/20/23 14:08:00 EST, Height, [...] 2 Refills, Maintenance, 02/13/22 10:52:00 EDT, Capsule, [facility]/pharmacy #[id number], Partial fill upon patient request [...] each, 11 Refills, Maintenance, 08/20/2413:39:00 EST, Powder, [facility]/pharmacy #[id number], Partial fill upon patient request [...] 3, 08/20/23 14:39:00 EST, Route toPharmacy Electronically, [facility]/pharmacy #[id number], 153, cm, 08/20/23 14:08:00 EST, Height, 57, kg, 03/24/23 13:41:00 EDT, Dry Weight Start Date: 08/20/23 Status: Ordered Lubriderm Advanced Therapy topical lotion See Instructions, Topically 4 times a day, # 1 each, 1 Refills, Maintenance, 08/20/23 14:41:00 EST,[facility]/pharmacy #[id number], Partial fill upon patient request [...] 12/04/23 14:25:00 EDT, 11/13/23 14:25:00 EDT, Patch, [facility]/pharmacy #[id number], Partial fill upon patient request if the prescription is for a schedule II opioid drug., 1 patch Topically Da... 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 PTSD - Post-traumatic [...] Team Personnel Name: Tresa Ramos RN Position: [facility] SN RN Member Role: Primary Care Nurse Name: Nic Lopez RN Position: [facility] RN Member Role: Primary Care Nurse Name: Roshni Rm RN Position: [facility] RN Member Role: Primary Care Nurse Name: Barbara Hughes RN Position: [facility] AMB Nurse Member Role: Primary Care Nurse Name: Donna Kirk RN Position: [facility] SN RN Member Role: Primary Care Nurse Name: Gabrielle Ramires RN Position: [facility] RN Member Role: Primary Care Nurse Name: Serina Leonard RN Position: [facility] RN Supv Member Role: Primary Care Nurse Name: Christiano Sidhu RN Position: [facility] RN Member Role: Primary Care Nurse Name: Blanquita Jackson RN Position: [facility] RN Member Role: Primary Care Nurse Name: Mindy Armendariz RN Position: [facility] Onco RN Member Role: Primary Care Nurse Name: Jessica Foster RN Position: [facility] RN Member Role: Primary Care Nurse Name: Tianna Barber RN Position: [facility] RN Member Role: Primary Care Nurse Name: Viji Bess RN Position: [facility] RN Member Role: Primary Care Nurse Name: Nishant APPLICATION SUPPORT ADMINISTRATORNorma Position: [facility] PCO Associate Professional Member Role: Primary Care Nurse Address: Address: [address] [place] [address]- [place] Name: Yvette Chen MD Position: [facility] Physician - Primary Care Member Role: PCP Address: Address: [address] [place] [address]- [place] Name: Gi Lin LPN Position: [facility] RN Member Role: Primary Care Nurse Name: Linda Haile RN Position: [facility] RN Member Role: Primary Care Nurse Name: Joanna Li RN Position: [facility] RN Member Role: Primary Care Nurse Name: Candy Li RN Position: [facility] RN Member Role: Primary Care Nurse Name: Rakel Kenyon RN Position: [facility] Onco RN Member Role: Primary Care Nurse Name: Linda Crews RN Position: [facility] RN Member Role: Primary Care Nurse Name: Segrey Coon RN Position: [facility] RN Member Role: Primary Care Nurse Name: Nga Vaca RN Position: [facility] RN Member Role: Primary Care Nurse Name: Evangelina Hudson RN Position: [facility] RN Member Role: Primary Care Nurse Name: Lovely Goldman RN Position: [facility] Onco RN Member Role: Primary Care Nurse Name: Raudel Maciel RN Position: [facility] RN Member Role: Primary Care Nurse Name: Yo Zapien RN Position: [facility] RN Member Role: Primary Care Nurse Name: Max Parks RN Position: [facility] RN Member Role: Primary Care Nurse Name: Layla Clinton RN Position: [facility] RN Member Role: Primary Care Nurse Name: Dlaila Workman RN Position: [facility] RN Member Role: Primary Care Nurse Name: Patsy Bailey RN Position: [facility] RN Member Role: Primary Care Nurse Name: Richard Mensah MD Position: [facility] Physician - [facility] Member Role: Lifetime Consulting Physician Address: Address: [address] [place] [phone]- [place] Care Team Related Persons Name: DAHIANA VALENTE Address: home [place], [place] Name: DAHIANA FLORES Address: home [address] [place] [address] Name: DOUGLAS KENNY Address: home [place], [place] Name: JAQUELIN KENNY Address: [place], [place] Name: MINDY KENNY Address: home [address] [place] [address]
--- OUTSIDE RECORDS SUMMARY | 2024-01-25 10:13 | XMS_ITS | Continuity of Care Document ---
Author Organization [facility] Address [address] [place] [address]- Care Team Providers Care Food Vendor Name Role Phone Yvette Chen MD Primary Care Physician [facility] Date[facility]s): 05/09/23 - 06/08/[address] [address]- Allergies, Adverse Reactions, Alerts Substance Reaction Severity [...] vaccine, inactivated 04/03/12 Give n SARS-CoV-2 mRNA (ylibwql-bhkz-ytoyo) vax 02/13/22 Given SARS-CoV-2 (COVID-19) mRNA BNT-162b2 [...] Comment: normal saline diluent added lot number [id number] expires 10/20/2022 2Admin Note: VIS given 05/16/2011 [...] tablet, 5 Refills, Maintenance, 11/23/22 16:14:00 EDT, [id number], 153, cm, 11/10/22 9:00:00 EDT, Height, 57, kg, 12/14/21 7:22:00 EDT, Dry Weight Start Date: 11/23/22 Status: Ordered Air conditioner Air conditioner, See Instructions, # 1 each, Refills 0, Tot. Refills 0, Maintenance, To use to keepthe room cool in the summer Dx: COPD on home oxygen, J43.9, Z99.81 CHARANJIT 99 Please fax to [facility], 11/11/19 13:40:00 EDT, Supply Start Date: 11/11/19 Status: Ordered Air Conditioner Air Conditioner, See Instructions, # 1 each, Refills 0, Tot. Refills 0, Maintenance, Dx: COPD J44.9To help avoid exacerbations CHARANJIT 99 Please fax to [facility], 12/30/20 13:22:00 EDT, Supply Start Date: 12/30/20 Status: Ordered albuterol 0.083% inhalation solution 1 vials, Inhalation, Every 4 to 6 hours, PRN NEEDED FOR WHEEZE, # 540 mL, 1 Refills, 07/12/22 15:39:00 EST, [facility]/pharmacy #[id number], 153, cm, 07/12/22 15:08:00 EST, Height, [...] 2 Refills, Maintenance, 12/07/22 15:47:00 EDT, Lotion, [facility]/pharmacy #[id number], Partial fill upon patient request if the prescription is for a schedule II opioid drug., 1 application Topicall... Start Date: 12/07/22 Status: Ordered amLODIPine 10 mg oral tablet 1 tablet, By Mouth, Daily, # 90 tablet, 3 Refills, Maintenance, 03/13/23 14:46:00 EDT, [facility]/pharmacy#[id number], 153, cm, 12/07/22 9:17:00 EDT, Height, 57, [...] Refills, Maintenance, 05/03/23 11:09:00 EDT, [id number], 153, cm, 04/20/23 10:44:00 EDT, Height, 57,kg, [...] 1 each, 1 Refills, Maintenance, 08/18/22 16:46:00 EST,[facility]/pharmacy #[id number], Partial fill upon patient request if the [...] N39.3 4/day CHARANJIT 99 Please fax to: [phone] [facility] one care attn to Linda Nathan, 02/07/21 [...] 18 Gm, 5 Refills, 03/13/23 14:46:00 EDT, [facility]/pharmacy #[id number], 153, cm, 12/07/22 9:17:00 EDT, Height, [...] with [facility] 12/2019 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 [facility] N, Egg Caser, Linda Evans, 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 PTSD - Post-traumatic [...] Team Personnel Name: Tresa Ramos RN Position: [facility] SN RN Member Role: Primary Care Nurse Name: Nic Lopez RN Position: [facility] RN Member Role: Primary Care Nurse Name: Roshni Rm RN Position: [facility] RN Member Role: Primary Care Nurse Name: Barbara Hughes RN Position: [facility] AMB Nurse Member Role: Primary Care Nurse Name: Donna Kirk RN Position: [facility] SN RN Member Role: Primary Care Nurse Name: Gabrielle Ramires RN Position: [facility] RN Member Role: Primary Care Nurse Name: Serina Leonard RN Position: [facility] RN Supv Member Role: Primary Care Nurse Name: Christiano Sidhu RN Position: [facility] RN Member Role: Primary Care Nurse Name: Blanquita Jackson RN Position: [facility] RN Member Role: Primary Care Nurse Name: Efren RNMindy Position: [facility] Onco RN Member Role: Primary Care Nurse Name: Jessica Foster RN Position: [facility] RN Member Role: Primary Care Nurse Name: Tianna Barber RN Position: [facility] RN Member Role: Primary Care Nurse Name: Viji Bess RN Position: [facility] RN Member Role: Primary Care Nurse Name: Norma Dillard NP Position: [facility] PCO Associate Professional Member Role: Primary Care Nurse Address: Address: [address] [place] [address]- Name: Yvette Chen MD Position: [facility] Physician - Primary Care Member Role: PCP Address: Address: [address] [place] [address]- Name: Gi iLn LPN Position: [facility] RN Member Role: Primary Care Nurse Name: Linda Haile RN Position: [facility] RN Member Role: Primary Care Nurse Name: Laura Guillermo Position: [facility] RN Member Role: Primary Care Nurse Name: Joanna Li RN Position: [facility] RN Member Role: Primary Care Nurse Name: Candy Li RN Position: [facility] RN Member Role: Primary Care Nurse Name: Rakel Kenyon RN Position: [facility] Onco RN Member Role: Primary Care Nurse Name: Linda Crews RN Position: [facility] RN Member Role: Primary Care Nurse Name: Sergey Coon RN Position: [facility] RN Member Role: Primary Care Nurse Name: Nga Vaca RN Position: [facility] RN Member Role: Primary Care Nurse Name: Evangelina Hudson RN Position: [facility] RN Member Role: Primary Care Nurse Name: Lovely Goldman RN Position: [facility] RN Member Role: Primary Care Nurse Name: Raudel Maciel RN Position: [facility] RN Member Role: Primary Care Nurse Name: Yo Zapien RN Position: [facility] RN Member Role: Primary Care Nurse Name: Max Parks RN Position: [facility] RN Member Role: Primary Care Nurse Name: Layla Clinton RN Position: [facility] RN Member Role: Primary Care Nurse Name: Dalila Workman RN Position: [facility] RN Member Role: Primary Care Nurse Name: Patsy Bailey RN Position: [facility] RN Member Role: Primary Care Nurse Name: Rodrick HARRIS, Richard Position: [facility] Physician - Behavioral Health Member Role: Lifetime Consulting Physician Address: Address: [address] [place] [address]- Care Team Related Persons Name: DAHIANA VALENTE Address: [place] [address] Name: DAHIANA FLORES Address: home [address] [place] [address] Name: DOUGLAS KENNY Address: home [place], [place] Name: JAQUELIN KENNY Address: home [place], [place] Name: MINDY KENNY Address: home [address] [place] [address]
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
--- OUTSIDE RECORDS SUMMARY | 2024-01-25 10:13 | XMS_ITS | Continuity of Care Document ---
Author Organization [facility] Address [address] [place] [id number]- Care Team Providers Care French Professor Name Role Phone Gustavo HARRIS, Yvette Robert Primary Care Physician [phone] Encounter [facility] Date(s): 06/21/22 - 07/21/[address] [address]- Allergies, Adverse Reactions, Alerts Substance Reaction Severity [...] vaccine, inactivated 04/03/12 Give n SARS-CoV-2 mRNA ([id number]) vax 02/13/22 Given SARS-CoV-2 (COVID-19) mRNA BNT-162b2 [...] Comment: normal saline diluent added lot number [id number] expires 10/20/2022 2Admin Note: VIS given 05/16/2011 [...] Maintenance, 05/22/22 15:06:00 EDT, ER Tablet, [id number], Partial fill upon patient request if the prescription is for a schedule II opioid drug., 153, c... Start Date: 05/22/22 Status: Ordered Air conditioner Air conditioner, See Instructions, # 1 each, Refills 0, Tot. Refills 0, Maintenance, To use to keepthe room cool in the summer Dx: COPD on home oxygen, J43.9, Z99.81 CHARANJIT 99 Please fax to [employer], 11/11/19 13:40:00 EDT, Supply Start Date: 11/11/19 Status: Ordered Air Conditioner Air Conditioner, See Instructions, # 1 each, Refills 0, Tot. Refills 0, Maintenance, Dx: COPD J44.9To help avoid exacerbations CHARANJIT 99 Please fax to [facility], 12/30/20 13:22:00 EDT, Supply Start Date: [...] tablet, 1 Refills, Maintenance, 02/13/22 10:56:00 EDT, [facility]/pharmacy#[id number], 153, cm, 02/13/22 10:35:00 EDT, Height, 57, kg, 12/14/21 7:22:00 EDT, Dry Weight Start Date: 02/13/22 Status: Ordered calcium (as carbonate) 500 mg oral tablet, chewable 1 tablet = 500 mg, Chew, 2 times a day, # 90 tablet, 0 Refills, Acute 07/22/22 8:50:00 EST, 01/10/22 8:50:00 EDT, Chew Tablet, [facility]/pharmacy #[id number], Partial fill upon patient [...] 5 Refills, Maintenance, 07/12/22 15:40:00 EST, Powder, [facility]/pharmacy #[id number], Partial fill upon patient request ifthe [...] 30 tablet, 5 Refills, Maintenance,04/04/22 8:40:00 EDT, [id number], 153, cm, 02/13/22 10:35:00 EDT, Height, 57, kg, 12/14/21 7:22:00 EDT, Dry Weight Start Date: 04/04/22 Status: Ordered lamotrigine 25 mg oral tablet 1, tablet, By Mouth, Daily, # 90 tablet, Refills 1, Route to Pharmacy Electronically, [id number], 158, cm, 04/18/21 10:02:00 EDT, Height, 63, kg, 07/10/19 11:28:00 EST, Dry Weight Start Date: 06/10/21 Status: Ordered lisinopril 2.5 mg oral tablet 1, tablet, By Mouth, Daily, # 90 tablet, Refills 1, Tot. Refills 1, 12/07/21 14:42:00 EDT, Route toPharmacy Electronically, [facility]/pharmacy #[id number], 152, cm, 11/22/21 11:54:00 [...] 60 capsule, 2 Refills, 06/21/22 8:34:00 EST, [id number], 153, cm, 02/13/22 10:35:00 EDT, Height, [...] N39.3 4/day CHARANJIT 99 Please fax to: [phone] [facility] one care attn to Linda [...] Refills, Maintenance, 03/03/21 15:57:00 EDT, REC Powder, [facility]/pharmacy #[id number], Partial fill upon patientrequest if the prescription is for a schedule II op... Start Date: 03/03/21 Status: Ordered Pulse oximeter Pulse oximeter, See Instructions, # 1 each, Refills 0, Tot. Refills 0, Maintenance, Use to monitor home O2 sat Dx: COPD, h/o lung cancer, chronic hypoxia, on home oxygen therapy CHARANJIT 99 Please fax to [phone], attn Linda Mcdowell, 04/21/22 15:11:... Start Date: 04/21/22 Status: Ordered simethicone 80 mg oral tablet, chewable 80 mg, 1, tablet, Chew, 3 times a day after meals and bedtime, PRN, for 30 days, # 100 tablet, Refills 1, Tot. Refills 1, Acute 09/10/22 15:38:00 EST, Dyspepsia, 07/12/22 15:38:00 EST, Route to Pharmacy Electronically, [facility]/pharmacy #[id number], Partial fill... 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 PTSD - Post-traumatic [...] Team Personnel Name: Tresa Ramos RN Position: [facility] SN RN Member Role: Primary Care Nurse Name: Nic Lopez RN Position: [facility] RN Member Role: Primary Care Nurse Name: Barbara Hughes RN Position: [facility] PCO RN Member Role: Primary Care Nurse Name: Donna Kirk RN Position: [facility] SN RN Member Role: Primary Care Nurse Name: Serina Leonard RN Position: [facility] RN Member Role: Primary Care Nurse Name: Blanquita Jackson RN Position: [facility] RN Member Role: Primary Care Nurse Name: Jessica Foster RN Position: [facility] RN Member Role: Primary Care Nurse Name: Tianna Barber RN Position: [facility] RN Member Role: Primary Care Nurse Name: Norma Dillard NP Position: [facility] PCO Associate Professional Member Role: Primary Care Nurse Address: Address: [address] [place] [address]- [place] Name: Yvette Chen MD Position: [facility] Primary Care Physician Member Role: PCP Address: Address: [address] [place] [address]- [place] Name: Linda Haile RN Position: [facility] ED RN W/OE and Tasks Member Role: Primary Care Nurse Name: Joanna Li RN Position: [facility] RN Member Role: Primary Care Nurse Name: Partha Juarez RN Position: [facility] RN Member Role: Primary Care Nurse Name: Candy Li RN Position: [facility] RN Member Role: Primary Care Nurse Name: Rakel Kenyon RN Position: [facility] Onco RN Member Role: Primary Care Nurse Name: Linad Crews RN Position: [facility] RN Member Role: Primary Care Nurse Name: Roshni Olivia RN Position: [facility] RN Member Role: Primary Care Nurse Name: Nga Vaca RN Position: [facility] RN Member Role: Primary Care Nurse Name: Evangelina Hudson RN Position: [facility] RN Member Role: Primary Care Nurse Name: Lovely Goldman RN Position: [facility] RN Member Role: Primary Care Nurse Name: Yo Zapien RN Position: [facility] RN Member Role: Primary Care Nurse Name: Max Parks RN Position: [facility] ED RN W/OE and Tasks Member Role: Primary Care Nurse Name: Mindy Lara RN Position: [facility] RN Member Role: Primary Care Nurse Name: Dalila Workman RN Position: [facility] RN Member Role: Primary Care Nurse Name: Patsy Bailey RN Position: [facility] RN Member Role: Primary Care Nurse Name: Richard Mensah MD Position: [facility] Psychiatry MD Member Role: Lifetime Consulting Physician Address: Address: [address] [place] [id number]- [place] Care Team Related Persons Name: SIDRA DAHIANA Address: home [place], [place] Name: DAHIANA FLORES Address: home [address] [place] [address] Name: DOUGLAS KENNY Address: home [place], [place] Name: JAQUELIN KENNY Address: home [place], [place] Name: MINDY KENNY Address: home [address] [place] [address]
--- OUTSIDE RECORDS SUMMARY | 2024-01-25 10:14 | XMS_ITS | Continuity of Care Document ---
Author Organization [facility] Address [address] [place] [address]- Care Team Providers Care Dragline Operator Name Role Phone Yvette Chen MD Primary Care Physician Encounter [facility] Date(s): 05/24/23 - 07/29/[address] [address]- Attending Physician: Yvette Chen MD Admitting Physician: [...] vaccine, inactivated 04/03/12 Give n SARS-CoV-2 mRNA ([id number]) vax 02/13/22 Given SARS-CoV-2 (COVID-19) mRNA BNT-162b2 [...] Comment: normal saline diluent added lot number [id number] expires 10/20/2022 2Admin Note: VIS given 05/16/2011 [...] tablet, 5 Refills, Maintenance, 07/12/23 12:56:00 EST, [facility]/pharmacy #[id number], 153, cm, 04/20/23 10:44:00 EDT, Height, 57, kg, 03/24/23 13:41:00 EDT, Dry Weight Start Date: 07/12/23 Status: Ordered Air conditioner Air conditioner, See Instructions, # 1 each, Refills 0, Tot. Refills 0, Maintenance, To use to keepthe room cool in the summer Dx: COPD on home oxygen, J43.9, Z99.81 CHARANJIT 99 Please fax to [employer], 11/11/19 13:40:00 EDT, Supply Start Date: 11/11/19 Status: Ordered Air Conditioner Air Conditioner, See Instructions, # 1 each, Refills 0, Tot. Refills 0, Maintenance, Dx: COPD J44.9To help avoid exacerbations CHARANJIT 99 Please fax to [email or web address], 12/30/20 13:22:00 EDT, Supply Start Date: [...] 2 Refills, Maintenance, 12/07/22 15:47:00 EDT, Lotion, [facility]/pharmacy #[id number], Partial fill upon patient request [...] each, 11 Refills, Maintenance, 03/13/2314:46:00 EDT, Powder, [facility]/pharmacy #[id number], Partial fill upon patient request [...] Refills, Maintenance, 05/03/23 11:09:00 EDT, [facility], 153, cm, 04/20/23 10:44:00 EDT, Height, 57,kg, 03/24/23 13:41:00 EDT, Dry Weight Start Date: 05/03/23 Status: Ordered hydrOXYzine hydrochloride 50 mg oral tablet 1 tablet, By Mouth, Daily at bedtime, PRN NEEDED FOR SLEEP, # 30 tablet, 5 Refills, Maintenance,11/10/22 9:24:00 EDT, [facility]/pharmacy #[id number], 153, cm, 11/10/22 9:00:00 EDT, [...] 3, 03/13/23 14:46:00 EDT, Route toPharmacy Electronically, [facility]/pharmacy #[id number], 153, cm, 12/07/22 9:17:00 EDT, Height, 57, kg, 12/14/21 7:22:00 EDT, Dry Weight Start Date: 03/13/23 Status: Ordered Lubriderm Advanced Therapy topical lotion See Instructions, Topically 4 times a day, # 1 each, 1 Refills, Maintenance, 08/18/22 16:46:00 EST,[facility]/pharmacy #[id number], Partial fill upon patient request [...] N39.3 4/day CHARANJIT 99 Please fax to: [phone] [facility] one care attn to Linda Nathan, 02/07/21 [...] 18 Gm, 5 Refills, 03/13/23 14:46:00 EDT, [facility]/pharmacy #[id number], 153, cm, 12/07/22 9:17:00 EDT, [...] with [facility] 12/2019 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, Clin Tech, Linda Evans, 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 PTSD - Post-traumatic [...] Team Personnel Name: Tresa Ramos RN Position: [facility] SN RN Member Role: Primary Care Nurse Name: Nic Lopez RN Position: [facility] RN Member Role: Primary Care Nurse Name: Roshni Rm RN Position: [facility] RN Member Role: Primary Care Nurse Name: Barbara Hughes RN Position: [facility] SHERITA Nurse Member Role: Primary Care Nurse Name: Donna Kirk RN Position: [facility] RN Member Role: Primary Care Nurse Name: Gabrielle Ramires RN Position: [facility] RN Member Role: Primary Care Nurse Name: Serina Leonard RN Position: [facility] RN Supv Member Role: Primary Care Nurse Name: Christiano Sidhu RN Position: [facility] RN Member Role: Primary Care Nurse Name: Blanquita Jackson RN Position: [facility] RN Member Role: Primary Care Nurse Name: Mindy Armendariz RN Position: [facility] Onco RN Member Role: Primary Care Nurse Name: Jessica Foster RN Position: [facility] RN Member Role: Primary Care Nurse Name: Tianna Barber RN Position: [facility] RN Member Role: Primary Care Nurse Name: Viji Bess RN Position: [facility] RN Member Role: Primary Care Nurse Name: Norma Dillard NP Position: [facility] PCO Associate Professional Member Role: Primary Care Nurse Address: Address: [address] [place] [address]- Name: Yvette Chen MD Position: [facility] Physician - Primary Care Member Role: PCP Address: Address: [address] [place] [address]- Name: Gi Lin LPN Position: [facility] RN Member Role: Primary Care Nurse Name: Linda Haile RN Position: [facility] RN Member Role: Primary Care Nurse Name: Joanna Li RN Position: [facility] RN Member Role: Primary Care Nurse Name: Candy Li RN Position: [facility] RN Member Role: Primary Care Nurse Name: Rakel Kenyon RN Position: [facility] Onco RN Member Role: Primary Care Nurse Name: Linda Crews RN Position: [facility] RN Member Role: Primary Care Nurse Name: Sergey Coon RN Position: [facility] RN Member Role: Primary Care Nurse Name: Nga Vaca RN Position: [facility] RN Member Role: Primary Care Nurse Name: Evangelina Hudson RN Position: [facility] RN Member Role: Primary Care Nurse Name: Lovely Goldman RN Position: [facility] RN Member Role: Primary Care Nurse Name: Raudel Maciel RN Position: [facility] RN Member Role: Primary Care Nurse Name: Yo Zapien RN Position: [facility] RN Member Role: Primary Care Nurse Name: Max Parks RN Position: [facility] RN Member Role: Primary Care Nurse Name: Layla Clinton RN Position: [facility] RN Member Role: Primary Care Nurse Name: Dalila Workman RN Position: [facility] RN Member Role: Primary Care Nurse Name: Patsy Bailey RN Position: [facility] RN Member Role: Primary Care Nurse Name: Richard Mensah MD Position: [facility] Physician - Behavioral Health Member Role: Lifetime Consulting Physician Address: Address: [address] [place] [address]- Care Team Related Persons Name: DAHIANA VALENTE Address: [place] [address] Name: DAHIANA FLORES Address: [address] [address] Name: DOUGLAS KENNY Address: home [place], [place] Name: JAQUELIN KENNY Address: home [place], [place] Name: MINDY KENNY Address: [address] [address]
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
--- OUTSIDE RECORDS SUMMARY | 2024-01-25 10:14 | XMS_ITS | Continuity of Care Document ---
Author Organization [facility] Philippe isamar Address [address] [place] [address] [address] [place] [address]- Care Team Providers Care Bi Specialist Name Role Phone Yvette Chen MD Primary Care Physician Encounter [facility] Date(s): 05/08/23 - 06/07/23 [facility] [address] [place], [place] [address] Allergies, Adverse Reactions, Alerts Substance Reaction [...] vaccine, inactivated 04/03/12 Give n SARS-CoV-2 mRNA ([id number]) vax 02/13/22 Given SARS-CoV-2 (COVID-19) mRNA BNT-162b2 [...] Comment: normal saline diluent added lot number [id number] expires 10/20/2022 2Admin Note: VIS given 05/16/2011 [...] tablet, 5 Refills, Maintenance, 11/23/22 16:14:00 EDT, [facility], 153, cm, 11/10/22 9:00:00 EDT, Height, 57, kg, 12/14/21 7:22:00 EDT, Dry Weight Start Date: 11/23/22 Status: Ordered Air conditioner Air conditioner, See Instructions, # 1 each, Refills 0, Tot. Refills 0, Maintenance, To use to keepthe room cool in the summer Dx: COPD on home oxygen, J43.9, Z99.81 CHARANJIT 99 Please fax to [facility], 11/11/19 13:40:00 EDT, Supply Start Date: 11/11/19 Status: Ordered Air Conditioner Air Conditioner, See Instructions, # 1 each, Refills 0, Tot. Refills 0, Maintenance, Dx: COPD J44.9To help avoid exacerbations CHARANJIT 99 Please fax to [facility], 12/30/20 13:22:00 EDT, Supply Start Date: 12/30/20 Status: Ordered albuterol 0.083% inhalation solution 1 vials, Inhalation, Every 4 to 6 hours, PRN NEEDED FOR WHEEZE, # 540 mL, 1 Refills, 07/12/22 15:39:00 EST, [facility]/pharmacy #[id number], 153, cm, 07/12/22 [...] 2 Refills, Maintenance, 12/07/22 15:47:00 EDT, Lotion, [facility]/pharmacy #[id number], Partial fill upon patient request if the prescription is for a schedule II opioid drug., 1 application [employer]opic[employer]... Start Date: 12/07/22 Status: Ordered amLODIPine 10 mg oral tablet 1 tablet, By Mouth, Daily, # 90 tablet, 3 Refills, Maintenance, 03/13/23 14:46:00 EDT, [facility]/pharmacy#[id number], 153, cm, 12/07/22 9:17:00 EDT, Height, [...] 2 Refills, Maintenance, 02/13/22 10:52:00 EDT, Capsule, [facility]/pharmacy [...] tablet, 1 Refills, Maintenance, 05/03/23 11:09:00 EDT, [facility] 427[facility], 153, cm, 04/20/23 10:44:00 EDT, Height, 57,kg, [...] 1 each, 1 Refills, Maintenance, 08/18/22 16:46:00 EST,[facility]/pharmacy #[id number], Partial fill upon patient request if the [...] N39.3 4/day CHARANJIT 99 Please fax to: [phone] [facility] one [...] 18 Gm, 5 Refills, 03/13/23 14:46:00 EDT, [facility]/pharmacy #[id number], 153, cm, 12/07/22 9:17:00 EDT, Height, 57, [...] with [facility] 12/2019 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 CCA N, Rib Builder, Linda Evans, 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 PTSD - Post-traumatic [...] Name: Barbara Hughes RN Position: [facility] AMB Nurse Member Role: Primary Care [...] Care Nurse Name: Mindy Schwartz RN Position: [facility] Onco RN Member [...] Member Role: Primary Care Nurse Address: Address: [address] [place] [address]- Name: Yvette Chen MD Position: [facility] Physician - Primary Care Member Role: PCP Address: Address: [address] [place] [address]- Name: Gi Lin LPN Position: [facility] RN Member Role: Primary Care Nurse Name: Linda Haile RN Position: [facility] RN Member Role: Primary Care Nurse Name: Laura Guillermo Position: [facility] RN Member Role: Primary [...] Member Role: Primary Care Nurse Name: Layla Cilnton RN Position: [facility] RN Member Role: Primary Care Nurse Name: Dalila Workman RN Position: [facility] RN Member Role: Primary Care Nurse Name: Patsy Bailey RN Position: [facility] RN Member Role: Primary Care Nurse Name: Rodrick HARRIS, Richard Position: [facility] Physician - Behavioral Health Member Role: Lifetime Consulting Physician Address: Address: [address] [place] [address]- Care Team Related Persons Name: SIDRA DAHIANA Address: home [place], [place] Name: DAHIANA FLORES Address: home [address] [place] [id number] Name: DOUGLAS KENNY Address: home [place], [place] Name: JAQUELIN KENNY Address: home [place], [place] Name: MINDY KENNY Address: home [address] [place] [id number]
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
--- OUTSIDE RECORDS SUMMARY | 2024-01-25 10:14 | XMS_ITS | Continuity of Care Document ---
Author Organization [facility] Address [address] [place] [address]- Care Team Providers Care Ingot Passer Name Role Phone Gustavo HARRIS, Yvette Robert Primary Care Physician [phone] Encounter [facility] Date[facility]s): 03/30/22 - 04/29/22 [facility] [address] [facility] [address] [place], [place] [address] Attending Physician: AdmtrVero Admitting Physician: Admtr, Ar8 Referring Physician: Admtr, Ar8 Allergies, Adverse Reactions, Alerts Substance Reaction Severity Status Talwin Active Tylox Active Tylenol 1 Resolved Depakote Active traZODONE Active 1pt stated she takes tylenol and is not allergic Immunizations Given and Recorded Vaccine Date Status Refusal Reason SARS-CoV-2 mRNA (enpgtuc-bygc-gigjj) vax 02/13/22 Given SARS-CoV-2 (COVID-19) mRNA BNT-162b2 [...] 06/04/14 Given Hepatitis A Adult Vaccine 2 10/2/12 Given Hepatitis A Adult Vaccine 3 06/08/11 Given tetanus-diphtheria toxoids (Td) 4 10/13/11 Given Influenza Inactive (IM) (oldterm) 5 04/25/11 Given pneumococcal 23-valent vaccine 04/10/11 Given 1Result Comment: normal saline diluent added lot number [id number] expires 10/20/2022 2Admin Note: VIS given 05/16/2011 [...] J43.9, Z99.81 CHARANJIT 99 Please fax to [facility], 11/11/19 13:40:00 EDT, Supply Start Date: 11/11/19 Status: Ordered Air Conditioner Air Conditioner, See Instructions, # 1 each, Refills 0, Tot. Refills 0, Maintenance, Dx: COPD J44.9To help avoid exacerbations CHARANJIT 99 Please fax to [facility], 12/30/20 13:22:00 EDT, Supply Start Date: 12/30/20 Status: Ordered albuterol 0.083% inhalation solution 1 vials, Inhalation, Every 4 to 6 hours, PRN NEEDED FOR WHEEZE, # 540 mL, 1 Refills, [id number], 158, cm, 01/31/21 9:26:00 EDT, Height, 63, [...] tablet, 1 Refills, Maintenance, 02/13/22 10:56:00 EDT, [facility]/pharmacy#[id number], 153, cm, 02/13/22 10:35:00 EDT, Height, 57, kg, 12/14/21 7:22:00 EDT, Dry Weight Start Date: 02/13/22 Status: Ordered calcium (as carbonate) 500 mg oral tablet, chewable 1 tablet = 500 mg, Chew, 2 times a day, # 90 tablet, 0 Refills, Acute 07/22/22 8:50:00 EST, 01/10/22 8:50:00 EDT, Chew Tablet, [facility]/pharmacy #[id number], Partial fill upon patient request if [...] 3 Refills, Maintenance, 11/01/21 8:57:00 EDT, Gel, [facility]/pharmacy #[id number], Partial fill upon patient request if [...] 2 Refills, Maintenance, 02/13/22 10:52:00 EDT, Capsule, [facility]/pharmacy #[id number], Partial fill upon patient request if [...] 5 Refills, Maintenance,04/04/22 8:40:00 EDT, [facility], 153, cm, 02/13/22 10:35:00 EDT, Height, 57, kg, 12/14/21 7:22:00 EDT, Dry Weight Start Date: 04/04/22 Status: Ordered lamotrigine 25 mg oral tablet 1, tablet, By Mouth, Daily, # 90 tablet, Refills 1, Route to Pharmacy Electronically, [facility], 158, cm, 04/18/21 10:02:00 EDT, Height, 63, kg, 07/10/19 11:28:00 EST, Dry Weight Start Date: 06/10/21 Status: Ordered lisinopril 2.5 mg oral tablet 1, tablet, By Mouth, Daily, # 90 tablet, Refills 1, Tot. Refills 1, 12/07/21 14:42:00 EDT, Route toPharmacy Electronically, [facility]/pharmacy #[id number], 152, cm, 11/22/21 11:54:00 EDT, Height, [...] 60 tablet, 0 Refills, Maintenance,11/07/21 16:47:00 EDT, [facility]/pharmacy #[id number], 158, cm, 11/01/21 8:21:00 EDT, Height [...] 0 Refills, Maintenance, 02/13/22 11:13:00 EDT, Patch, [facility]/pharmacy #[id number], Partial fill upon patient request if the prescription is fora schedule II opioid drug., 1 patch Topically Daily... Start Date: 02/13/22 Status: Ordered omeprazole 20 mg oral enteric coated capsule 1 capsule, By Mouth, 2 times a day, # 60 capsule, 5 Refills, [facility], 152, cm, 11/22/21 11:54:00 EDT, Height, 52.9, [...] N39.3 4/day CHARANJIT 99 Please fax to: [phone] [facility] one care attn to Linda [...] Refills, Maintenance, 03/03/21 15:57:00 EDT, REC Powder, [facility]/pharmacy #[id number], Partial fill upon patientrequest if the prescription is for a schedule II op... Start Date: 03/03/21 Status: Ordered Pulse oximeter Pulse oximeter, See Instructions, # 1 each, Refills 0, Tot. Refills 0, Maintenance, Use to monitor home O2 sat Dx: COPD, h/o lung cancer, chronic hypoxia, on home oxygen therapy CHARANJIT 99 Please fax to [phone], attn Linda Mcdowell, 04/21/22 15:11:... Start Date: [...] with [facility] 12/2019 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 CCA N, Family Coach, Linda Evans, 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 PTSD - Post-traumatic [...] Name: Gustavo HARRIS, Yvette Robert Address: Address: [address] [place] [address]
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
--- OUTSIDE RECORDS SUMMARY | 2024-01-25 10:15 | XMS_ITS | Continuity of Care Document ---
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 Name Role Phone Gustavo HARRIS, Yvette Robert Primary Care Physician [phone] Encounter [facility] Date(s): 06/28/23 - 08/30/[address] [address]- Attending Physician: Yvette Chen MD Admitting Physician: [...] vaccine, inactivated 04/03/12 Give n SARS-CoV-2 mRNA ([id number]-yukrr) vax 02/13/22 Given SARS-CoV-2 (COVID-19) mRNA BNT-162b2 [...] Comment: normal saline diluent added lot number [id number] expires 10/20/2022 2Admin Note: VIS given 05/16/2011 [...] J43.9, Z99.81 CHARANJIT 99 Please fax to [facility], 11/11/19 13:40:00 EDT, Supply Start Date: 11/11/19 Status: Ordered Air Conditioner Air Conditioner, See Instructions, # 1 each, Refills 0, Tot. Refills 0, Maintenance, Dx: COPD J44.9To help avoid exacerbations CHARANJIT 99 Please fax to [facility], 12/30/20 13:22:00 EDT, Supply Start Date: 12/30/20 Status: Ordered albuterol 0.083% inhalation solution 1 vials, Inhalation, Every 4 to 6 hours, PRN NEEDED FOR WHEEZE, # 540 mL, 1 Refills, 07/12/22 15:39:00 EST, [facility]/pharmacy #[id number], 153, cm, 07/12/22 15:08:00 EST, Height, [...] Refills, Maintenance, 12/07/22 15:47:00 EDT, Lotion, [facility]/pharmacy #[id number], Partial fill upon patient request if the prescription is for a schedule II opioid drug., 1 application [employer]... Start Date: 12/07/22 Status: Ordered amLODIPine 10 mg oral tablet 1 tablet, By Mouth, Daily, # 90 tablet, 3 Refills, Maintenance, 08/20/23 14:39:00 EST, [facility]/pharmacy#4471, 153, cm, 08/20/23 14:08:00 EST, Height, 57, [...] CHARANJIT 1 year Please fax to [facility], 08/29/23 13:44:00 EST, Supply Start Date: 08/29/23 Status: Ordered Enoxaparin 0.4 mL = 40 [...] each, 11 Refills, Maintenance, 08/20/2413:39:00 EST, Powder, [facility]/pharmacy #[id number], Partial fill upon patient request if [...] 1 Refills, Maintenance, 05/03/23 11:09:00 EDT, [facility] STORE 25514, 153, cm, 04/20/23 10:44:00 EDT, Height, 57,kg, 03/24/23 13:41:00 EDT, Dry Weight Start Date: 05/03/23 Status: Ordered hydrOXYzine hydrochloride 50 mg oral tablet 1 tablet, By Mouth, Daily at bedtime, PRN NEEDED FOR SLEEP, # 30 tablet, 5 Refills, Maintenance,11/10/22 9:24:00 EDT, [facility]/pharmacy #[id number], 153, cm, 11/10/22 9:00:00 EDT, Height, [...] 3, 08/20/23 14:39:00 EST, Route toPharmacy Electronically, [facility]/pharmacy #[id number], 153, cm, 08/20/23 14:08:00 EST, Height, 57, kg, 03/24/23 13:41:00 EDT, Dry Weight Start Date: 08/20/23 Status: Ordered Lubriderm Advanced Therapy topical lotion See Instructions, Topically 4 times a day, # 1 each, 1 Refills, Maintenance, 08/20/23 14:41:00 EST,[facility]/pharmacy #[id number], Partial fill upon patient request if [...] of Breath, # 18 Gm, 5 Refills, 08/20/23 14:39:00 EST, [id number], 153, cm, 08/20/23 14:08:00 EST, Height, 57, kg, 03/24/23 13:41:00 EDT, Dry Weight Start Date: 08/20/23 Status: Ordered Vitamin D3 1000 intl units [...] considering TKR with [facility] 12/2019 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 *[id number] Visual Basic .Net Developer Argenis Sanchez 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 PTSD - Post-traumatic [...] Tresa Ramos RN Position: [facility] RN Member Role: Primary Care Nurse Name: Nic Lopez RN Position: [facility] RN Member Role: Primary Care Nurse Name: Roshni Rm RN Position: S RN Member Role: Primary [...] Care Nurse Name: Mindy Armendariz RN Position: [facility] Onco RN [...] Member Role: Primary Care Nurse Address: Address: [address] [place] [address]- Name: Yvette Chen MD Position: [facility] Physician - Primary Care Member Role: PCP Address: Address: [address] [place] [address]- Name: Gi Lin LPN [facility] Lovely Goldman RN Position: [facility] Onco RN Member Role: Primary Care Nurse Name: Raudel Maciel RN Position: [facility] RN Member Role: Primary Care Nurse Name: Yo Zapien RN Position: [facility] RN Member Role: Primary Care Nurse Name: Max Parks RN Position: [facility] RN Member Role: Primary Care Nurse Name: Layla Clinton RN Position: S RN Member Role: Primary Care Nurse Name: Dalila Workman RN Position: [facility] RN Member Role: Primary Care Nurse Name: Patsy Bailey RN Position: [facility] RN Member Role: Primary Care Nurse Name: Richard Mensah MD Position: [facility] Physician - Behavioral Health Member Role: Lifetime Consulting Physician Address: Address: [address] [place] [address]- [place] Care Team Related Persons Name: DAHIANA VALENTE Address: home [place], [place] Name: DAHIANA FLORES Address: home [address] [place] [address] Name: DOUGLAS KENNY Address: [place], [place] Name: JAQUELIN KENNY Address: home [place], [place] Name: MINDY KENNY Address: home [address] [place] [address]
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
--- OUTSIDE RECORDS SUMMARY | 2024-01-25 10:15 | XMS_ITS | Continuity of Care Document ---
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 Name Role Phone Gustavo HARRIS, Yvette Robert Primary Care Physician [phone] Encounter [facility] Date(s): 09/20/23 - 10/20/[address] [address]- Allergies, Adverse Reactions, Alerts Substance Reaction Severity Status Tylenol 1 Resolved Depakote Active traZODONE Active Talwin Active Tylox Active 1pt stated she [...] vaccine, inactivated 04/03/12 Give n SARS-CoV-2 mRNA (yzfyjpo-alwv-dlvyg) vax 02/13/22 Given SARS-CoV-2 (COVID-19) mRNA BNT-162b2 [...] Comment: normal saline diluent added lot number [id number] expires 10/20/2022 2Admin Note: VIS given 05/16/2011 [...] J43.9, Z99.81 CHARANJIT 99 Please fax to [facility], 11/11/19 13:40:00 EDT, Supply Start Date: 11/11/19 Status: Ordered Air Conditioner Air Conditioner, See Instructions, # 1 each, Refills 0, Tot. Refills 0, Maintenance, Dx: COPD J44.9To help avoid exacerbations CHARANJIT 99 Please fax to [facility], 12/30/20 13:22:00 EDT, Supply Start Date: 12/30/20 Status: Ordered albuterol 0.083% inhalation solution 1 vials, Inhalation, Every 4 to 6 hours, PRN NEEDED FOR WHEEZE, # 525 mL, 1 Refills, Maintenance, 09/19/23 11:27:00 EST, [facility]/pharmacy #[id number], 153, cm, 08/20/23 14:08:00 [...] 2 Refills, Maintenance, 12/07/22 15:47:00 EDT, Lotion, [facility]/pharmacy #[id number], Partial fill upon patient request if the prescription is for a schedule II opioid drug., 1 application Topicall... Start Date: 12/07/22 Status: Ordered amLODIPine 10 mg oral tablet 1 tablet, By Mouth, Daily, # 90 tablet, 3 Refills, Maintenance, 08/20/23 14:39:00 EST, [facility]/pharmacy#4471, 153, cm, 08/20/23 14:08:00 EST, Height, [...] 2 Refills, Maintenance, 02/13/22 10:52:00 EDT, Capsule, [facility]/pharmacy #[id number], Partial fill upon patient [...] COPD, cirrhosis CHARANJIT 99 Please fax to [facility], 09/06/21 13:31:00 EST, Supply Start Date: 09/06/21 Status: Ordered fluticasone/umeclidinium/vilanterol 100 mcg-62.5 mcg-25 mcg/inh inhalation powder 1 puffs, Inhalation, Daily, at the same time every day, # 1 each, 11 Refills, Maintenance, 08/20/2413:39:00 EST, Powder, [facility]/pharmacy #[id number], Partial fill upon patient [...] 90 tablet, 0 Refills, Maintenance,09/18/23 10:02:00 EST, [facility]/pharmacy #[id number], 153, cm, 08/20/23 14:08:00 [...] 3, 08/20/23 14:39:00 EST, Route toPharmacy Electronically, [facility]/pharmacy #[id number], 153, cm, 08/20/23 14:08:00 EST, Height, 57, kg, 03/24/23 13:41:00 EDT, Dry Weight Start Date: 08/20/23 Status: Ordered Lubriderm Advanced Therapy topical lotion See Instructions, Topically 4 times a day, # 1 each, 1 Refills, Maintenance, 08/20/23 14:41:00 EST,[facility]/pharmacy #[id number], Partial fill upon patient request if the [...] considering TKR with [facility] 12/2019 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 *[phone] 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 PTSD - [...] Personnel Name: Tresa Ramos RN Position: [facility] SN RN Member Role: Primary Care Nurse Name: Nic Lopez RN Position: [facility] RN Member Role: Primary Care Nurse Name: Roshni Rm RN Position: [facility] RN Member Role: Primary Care Nurse Name: Barbara Hughes RN Position: [facility] AMB Nurse Member Role: Primary Care Nurse Name: Donna Kirk RN Position: [facility] SN RN Member Role: Primary Care Nurse Name: Gabrielle Ramires RN Position: [facility] RN Member Role: Primary Care Nurse Name: Serina Leonard RN Position: [facility] RN Supv Member Role: Primary Care Nurse Name: Christiano Sidhu RN Position: [facility] RN Member Role: Primary Care Nurse Name: Blanquita Jackson RN Position: [facility] RN Member Role: Primary Care Nurse Name: Mindy Armendariz RN Position: [facility] Onco RN Member Role: Primary Care Nurse Name: Jessica Foster RN Position: [facility] RN Member Role: Primary Care Nurse Name: Tianna Barber RN Position: [facility] RN Member Role: Primary Care Nurse Name: Viji Bess RN Position: [facility] RN Member Role: Primary Care Nurse Name: Norma Dillard NP Position: [facility] PCO Associate Professional Member Role: Primary Care Nurse Address: Address: [address] [place] [address]- Name: Yvette Chen MD Position: [facility] Physician - Primary Care Member Role: PCP Address: Address: [address] [place] [address]- Name: Gi Lin LPN Position: [facility] RN Member Role: Primary Care Nurse Name: Linda Haile RN Position: [facility] RN Member Role: Primary Care Nurse Name: Joanna Li RN Position: [facility] RN Member Role: Primary Care Nurse Name: Candy Li RN Position: [facility] RN Member Role: Primary Care Nurse Name: Rakel Kenyon RN Position: [facility] Onco RN Member Role: Primary Care Nurse Name: Linda Crews RN Position: [facility] RN Member Role: Primary Care Nurse Name: Sergey Coon RN Position: [facility] RN Member Role: Primary Care Nurse Name: Nga Vaca RN Position: [facility] RN Member Role: Primary Care Nurse Name: Evangelina Hudson RN Position: [facility] RN Member Role: Primary Care Nurse Name: Lovely Goldman RN Position: [facility] Onco RN Member Role: Primary Care Nurse Name: Raudel Maciel RN Position: [facility] RN Member Role: Primary Care Nurse Name: Yo Zapien RN Position: [facility] RN Member Role: Primary Care Nurse Name: Max Parks RN Position: [facility] RN Member Role: Primary Care Nurse Name: Layla Clinton RN Position: [facility] RN Member Role: Primary Care Nurse Name: Dalila Workman RN Position: [facility] RN Member Role: Primary Care Nurse Name: Patsy Bailey RN Position: [facility] RN Member Role: Primary Care Nurse Name: Richard Mensah MD Position: [facility] Physician - Behavioral Health Member Role: Lifetime Consulting Physician Address: Address: [address] [place] [address]- [place] Care Team Related Persons Name: DAHIANA VALENTE Address: home [place], [place] Name: DAHIANA FLORES Address: home [address] [place] [address] Name: DOUGLAS KENNY Address: home [place], [place] Name: JAQUELIN KENNY Address: [place], [place] Name: MINDY KENNY Address: home [address] [place] [address]
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
--- OUTSIDE RECORDS SUMMARY | 2024-01-25 10:15 | XMS_ITS | Continuity of Care Document ---
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 severity, Onset: Unknown) Talwin? (Severity: Unknown severity, Onset: Unknown) traZODONE? (Severity: Unknown severity, Onset: Unknown) ? 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 Past Surgical History Laparoscopic cholecystectomy with cholangiography: 12/14/21 Colonoscopy, flexible, proximal to splenic flexure; diagnostic, with or without collection of specimen(s) by brushing or washing, with or without colon decompression (separate procedure): 05/18/14 delivery only; Appendectomy; ? Social History Alcohol Details:??Use: Never. Substance Abuse Details:??Use: Past. Tobacco Details:??Former smoker, Tobacco user in household: No. ? Psychosocial History Lives at home by herself.?? Independent in most ADLs. ?? Family History Sibling: Bipolar; Hypertension Sister: Cancer Brother: Cancer ? Medications Home Medications Acetaminophen (acetaminophen 650 mg oral tablet, extended release)?1?tab(s)?By Mouth?Every 8 hours?as needed? NEEDED FOR MODERATE PAIN Albuterol (albuterol 0.083% inhalation solution)?1?vials?Inhalation?Every 4 to 6 hours?as needed? NEEDED FOR WHEEZE Albuterol (Ventolin HFA 108 mcg/inh inhalation aerosol with adapter)?2?puff(s)?Inhalation?Every 4 hours?as needed?Wheezing/Shortness of Breath Alprazolam?1?Milligram?By Mouth?Daily?as needed?as needed for anxiety Amlodipine (amLODIPine 10 mg oral tablet)?1?tab(s)?By Mouth?Daily Ammonium Lactate 12% (Amlactin 12% lotion)?1?lei?Topically?2 times a day?as needed?Dry Skin Cholecalciferol (Vitamin D3 1000 intl units oral tablet)?1?tab(s)?1,000?International Unit?By Mouth?Daily Clonazepam (ClonAZEPAM Tablet)?1.5?By Mouth?Daily at bedtime Clonazepam?1?Milligram?By Mouth?2 times a day Docusate (docusate sodium 100 mg oral capsule)?1?capsule?100?Milligram?By Mouth?2times a day?as needed?as needed for constipation?with plenty of water Durable Medical Equipment (Oxygen therapy; oxygen concentrator)?See Instructions?Oxygen 2 L at rest and 3 L with activityDx: COPD, h/o lung cancer, chronic hypoxiaLON 99 Durable Medical Equipment (Air conditioner)?See Instructions?To use to keep the room cool in the summerDx: COPD on home oxygen, J43.9, Z99.81LON 99Please fax to [facility] Durable Medical Equipment (Ensure)?See Instructions?As meal replacementDx: Pre-DM R73.03 and obesity E66.9Butter pecan if possibleLON 6 monthsPlease fax to [facility] Durable Medical Equipment (Air Conditioner)?See Instructions?Dx: COPD J44.9To help avoid exacerbationsLON 99Please fax to [facility] Durable Medical Equipment (Pads)?See Instructions?Dx: Stress Urinary Incontinence N39.34/Dilan 99Please fax to: [phone] [facility] one care attn to [facility] Durable Medical Equipment (Ensure)?See Instructions?2/dayDx: Unintentional weight loss, advanced COPD, cirrhosisLON 99Please fax to [facility] Durable Medical Equipment (Various Tube Drainage Supplies)?See Instructions?10cc syrings, alcohol pads, gloves (medium), sterile saline, disposable chuxs, drain sponges (3x3) and tapeDx: surgical tube drainage; cholecystitis K81.9 with c-tube in place Z93.4Supplies to change dressing every 3 days or if the dressing bec... Durable Medical Equipment (Alcohol pads)?See Instructions?Dx: surgical tube drainage; cholecystitis K81.9 with c-tube in place Z93.4Supplies to change dressing every 3 days or if the dressing becomes soiledLON: 3 months Durable Medical Equipment (Gloves, medium)?See Instructions?Dx: surgical tube drainage; cholecystitis K81.9 with c-tube in place Z93.4Supplies to change dressing every 3 days or if the dressingbecomes soiledLON: 3 months Durable Medical Equipment (10 cc syringe)?See Instructions?Dx: surgical tube drainage; cholecystitis K81.9 with c-tube in place Z93.4Supplies to change dressing every 3 days or if the dressing becomes soiledLON: 3 months Durable Medical Equipment (Sterile saline)?See Instructions?Dx: surgical tube drainage; cholecystitis K81.9 with c-tube in place Z93.4Supplies to change dressing every 3 days or if the dressingbecomes soiledLON: 3 months Durable Medical Equipment (Disposable chux pads)?See Instructions?Dx: surgical tube drainage;cholecystitis K81.9 with c-tube in place Z93.4Supplies to change dressing every 3 days or if the dressing becomes soiledLON: 3 months Durable Medical Equipment (Drain sponges, 3x3)?See Instructions?Dx: surgical tube drainage; cholecystitis K81.9 with c-tube in place Z93.4Supplies to change dressing every 3 days or if the dressing becomes soiledLON: 3 months Durable Medical Equipment (paper tape)?See Instructions?Dx: surgical tube drainage; cholecystitis K81.9 with c-tube in place Z93.4Supplies to change dressing every 3 days or if the dressing becomes soiledLON: 3 months Durable Medical Equipment (Pulse oximeter)?See Instructions?Use to monitor home O2 satDx: COPD, h/o lung cancer, chronic hypoxia, on home oxygen therapyLON 99Please fax to [facility] Emollients, Topical (Lubriderm Advanced Therapy topical lotion)?See Instructions?Topically 4 times a day fluticasone/umeclidinium/vilanterol (fluticasone/umeclidinium/vilanterol 100 mcg-62.5 mcg-25 mcg/inh inhalation powder)?1?puff(s)?Inhalation?Daily?at the same time every day HydrOXYzine (hydrOXYzine hydrochloride 50 mg oral tablet)?1?tab(s)?By Mouth?Daily at bedtime?as needed? NEEDED FOR SLEEP Lamotrigine (lamotrigine 25 mg oral tablet)?50?Milligram?2?tablet?By Mouth?3 times a day?unsure exact dosing; rx by psychiatry #540/3 month supply Lisinopril (lisinopril 2.5 mg oral tablet)?1?tablet?By Mouth?Daily Methadone (Methadone Liquid)?27?Milligram?By Mouth?Daily Miscellaneous Rx (Nebulizer supplies including tubing and mouth piece)?See Instructions?Dx: COPDLON 99Fax to [facility] Miscellaneous Rx (VITAMIN D3 25 MCG TABLET)?TAKE 1 TABLET BY MOUTH EVERY DAY Omeprazole (omeprazole 20 mg oral enteric coated capsule)?1?capsule?By Mouth?2 times a day Oxygen?as needed?24 hours Pantoprazole (pantoprazole 40 mg oral delayed release tablet)?TAKE 1 TABLET BY MOUTH EVERY DAY Pentoxifylline (pentoxifylline 400 mg oral tablet, extended release)?400?Milligram?1?tablet?By Mouth?2 times a day Ursodiol?500?Milligram?By Mouth?2 times a day ? Results Recent Labs BLOOD BANK Blood Type B Positive ()?? 03/23/2023 17:18 Antibody Screen Negative ()?? 03/23/2023 17:18 ?? BLOOD COUNT & DIFF WBC 11.0 k/mm3 ()?? 03/23/2023 17:33 RBC 4.31 m/mm3 ()?? 03/23/2023 17:33 Hgb 12.3 Gm/dL ()?? 03/23/2023 17:33 Hct 40.3 % ()?? 03/23/2023 17:33 MCV 93.5 femtoliters ()?? 03/23/2023 17:33 MCH 28.5 pg ()?? 03/23/2023 17:33 MCHC 30.5 g/dL (Low)?? 03/23/2023 17:33 Platelet Count 194 k/mm3 ()?? 03/23/2023 17:33 RDW-SD 42.5 femtoliters ()?? 03/23/2023 17:33 MPV 10.0 femtoliters ()?? 03/23/2023 17:33 Nucleated RBC (Automated) 0.0 #/100 WBC'S ()?? 03/23/2023 17:33 Abs. NRBC 0.0 k/mm3 ()?? 03/23/2023 17:33 Abs. Neut 9.9 k/mm3 (High)?? 03/23/2023 17:33 Abs. Lymph 0.6 k/mm3 (Low)?? 03/23/2023 17:33 Abs. Love 0.5 k/mm3 ()?? 03/23/2023 17:33 Abs. Eo 0.0 k/mm3 ()?? 03/23/2023 17:33 Abs. Baso 0.0 k/mm3 ()?? 03/23/2023 17:33 Neut % 89.8 % (High)?? 03/23/2023 17:33 Lymph % 5.0 % (Low)?? 03/23/2023 17:33 Love % 4.3 % (Low)?? 03/23/2023 17:33 Eos % 0.2 % ()?? 03/23/2023 17:33 Baso % 0.2 % ()?? 03/23/2023 17:33 Imm Gran 0.5 % ()?? 03/23/2023 17:33 Abs. Imm Gran 0.1 k/mm3 ()?? 03/23/2023 17:33 ?? CHEM GENERAL Sodium 138 mmol/L ()?? 03/23/2023 17:33 Potassium 4.2 mmol/L ()?? 03/23/2023 17:33 Chloride 96 mmol/L (Low)?? 03/23/2023 17:33 Bicarbonate Level 32 mmol/L (High)?? 03/23/2023 17:33 Anion Gap 10 ()?? 03/23/2023 17:33 Glucose Level 97 mg/dL ()?? 03/23/2023 17:33 BUN 15 mg/dL ()?? 03/23/2023 17:33 Creatinine-Blood 1.0 mg/dL ()?? 03/23/2023 17:33 Estimated GFR Creatinine 63 ML/MIN/1.73 M2 ()?? 03/23/2023 17:33 Calcium 9.1 mg/dL ()?? 03/23/2023 17:33 ?? COAG INR 1.1 ()?? 03/23/2023 22:24 Protime (PT) 11.7 seconds (High)?? 03/23/2023 22:24 ?? VIROLOGY COVID-19 by RT-PCR NEGATIVE ()?? 03/23/2023 19:23 ? Imaging(s) ?Pelvis 1 or 2 Views ?? 03/23/2023 17:10??by Thang Montague MD ?IMPRESSION: ?? Comminuted intertrochanteric fracture of the right femur with displaced fragments. ?XR Femur 2 Views Right ?? 03/23/2023 17:10??by Thang Montague MD ?IMPRESSION: ?? Comminuted intertrochanteric fracture of the right femur with displaced fragments. ?? No other acute abnormality. Mild cartilage thinning in the medial compartment of the right knee. ?? The presence of the fracture in the proximal femur was previously reported to the referring provider. ?Wrist Comp Min 3 Views Left ?? 03/23/2023 19:28??by Fiona Roe MD ?IMPRESSION: ?? Improved alignment of distal radial and ulnar fractures. ?Wrist Comp Min 3 Views Left ?? 03/23/2023 17:10??by Thang Montague MD ?IMPRESSION: ?? Fracture of the radial metaphysis with dorsal angulation and displacement of the distal fragment . ?? Fracture of the ulnar styloid process with dorsal displacement. ?? No other acute osseous abnormality. Degenerative changes in the first MCP and IP joints. ?? Findings were communicated to Radha Viridiana, M.D. by text message at 5:21 PM. ? EKG study * Event Display: EKG Authored Date: * Event Display: ECG 12-Lead Authored Date: Please click on pdf link to open report * Event Display: ECG 12-Lead Authored Date: Ventricular Rate: 77 BPM Atrial Rate: 77 BPM P-R Interval: 130 ms QRS Duration: 78 ms Q-T Interval: 414 ms QTC Calculation(Bazett): 468 ms P Abiquiu: 82 degrees R Abiquiu: 44 degrees T Abiquiu: 72 degrees Normal sinus rhythm Normal ECG When compared with ECG of 01-JAN-2022 21:04, No significant change was found Confirmed by OLIVIA COVARRUBIAS MD ([id number]) on 03/28/2023 9:20:52 AM [place]: OLIVIA COVARRUBIAS MD Cardiology * Event Display: Cardiac Rhythm Strips Authored Date: Hospital Progress note * Lovely Bowles RN: SIGN, MODIFY, PERFORM, SIGN, VERIFY, SIGN, MODIFY Event Display: Progress Note Hospital Authored Date: Patient: AXEL KENNY Age: 68 years Sex: Female : 1955 Associated Diagnoses: None Author: Lovely Bowles RN Findings Problem Related to Alteration in Comfort : Alteration in Comfort/new 04/04/2023 10:00 EDT Alteration in Comfort Related to Injury, Surgery, Other: R hip fx. L wrist fx Goals & Outcomes: Comfort Pt will report acceptable level of comfort & pain control, Pt will state importance of adhering to pain strategy regime, Pt will demonstrate necessary skills to manage pain, Non-verbal indicators will indicate comfort/pain control Interventions Implemented: Comfort Assess pain using appropriate pain scale/tools, Assess aggravating factors & prevent them accordingly, Assess alleviating factors & promote them accordingly Goals/Interventions, Comfort Yes Comfort, Problem Start 03/24/2023 13:35 Reviewed plan with, Comfort Patient Patient Progression, Comfort Pt progressing according to plan Comfort, Problem Ongoing Yes . Alteration in Musculoskeletal : Alteration in Musculoskeletal Func/new 04/04/2023 10:00 EDT Alteration in Musculoskeletal Related to Fracture, Mobility, Orthopedic Procedure, Other: L wrist fx, R hip IM nailing 03/25 Goals & Outcomes, Musculoskeletal Affected extremity will maintain color/motion/sensation, Pt able to perform ADL's to best of ability, Pt demonstrates precautions/exercise/ transfers per protocol, Pt will be free from complications of immobility, Pt will demonstrate ability to participate in AD L's, Pt will report acceptable level of comfort/pain relief Interventions, Musculoskeletal Monitor patients ambulation status, monitor Color/Motion/Sensation, Assist with repositioning, Encourage deep breathing & coughing exercises, Notify MD immediately if tissue perfusion deteriorates, Obtain assistive devices as needed, Teach & Encourage use of Incentive spirometer, Teach Pt/caregiver on ADL's & adaptive equipment, Teach Pt/caregiver on exercises, Teach pt/caregiver on use of pain scale, Teach Pt/caregiver complications of immobility, Teach Pt/caregiver techniques to increase mobility, Teach Pt/caregiver on safety precautions BH Goals/Interventions, Musculoskeletal Yes Musculoskeletal, Problem Start 03/25/2023 22:51 Reviewed Plan with, Musculoskeletal Patient Patient Progression, Musculoskeletal Pt progressing according to plan . Nursing Data Vital Signs : VITAL SIGNS SECTION 04/04/2023 7:28 EDT Temperature 98.3 DegF Temperature Route Oral Pulse Rate 74 bpm Respiratory Rate 18 br/min Systolic Blood Pressure 110 mm Hg Diastolic Blood Pressure 79 mm Hg Blood pressure sites Arm, right Mean Arterial Pressure 89 mm Hg Pulse Pressure 31 mm Hg Oxygen Saturation 98 % Mode of Delivery (Oxygen) Room air 04/04/2023 4:56 EDT Early Warning Score 0.00 04/04/2023 4:08 EDT Respiratory Rate 18 br/min 04/04/2023 3:08 EDT Early Warning Score 0.00 04/04/2023 3:08 EDT Respiratory Rate 16 br/min 04/04/2023 3:03 EDT Early Warning Score 0.00 04/04/2023 2:57 EDT Temperature 98.2 DegF Temperature Route Oral Pulse Rate 90 bpm Respiratory Rate 17 br/min Systolic Blood Pressure 112 mm Hg Diastolic Blood Pressure 70 mm Hg Blood pressure sites Arm, right Mean Arterial Pressure 84 mm Hg Pulse Pressure 42 mm Hg Oxygen Saturation 100 % Liters per Minute 2 L/min Mode of Delivery (Oxygen) Nasal cannula . Narrative/Incidental 68 year old female POD#10 from a IM nailing of the right femur with Dr Oscar. Bandages in place C/D/I. +CSM. Denies numbness/tingling. +cap refill. +dorsi/plantar flexion. Patient also sustained a left wrist fracture that is nonoperable. Splint/usha C/D/I. 2A OOB with a walker. RLE TDWB. Patient A&a mp;Ox3. Lungs clear, diminished at the bases. Nonproductive cough noted on exam. Denies chest pain and SOB. Not on telemetry. On 2L NC at baseline. Refusing scheduled nebulizers. Abd soft, nontender.On regular diet, tolerating well. Denies N/V/D. LBM 04/04. Noland catheter in place d/t retention, draining CYU. Lovenox and SCDs for DVT prophylaxis. Call light and personal belongings in reach of patient. patient educated on not getting up without assistance. . Evaluation P: alteration in musculoskeletal function I: see care plan above for current interventions E: 68 year old female POD#10 from a IM nailing of the right femur with Dr Oscar. Bandages in placeC/D/I. +CSM. Denies numbness/tingling. +cap refill. +dorsi/plantar flexion. Patient also sustained a left wrist fracture that is nonoperable. Splint/usha C/D/I. 2A OOB with a walker. RLE TDWB. PatientA&Ox3.. Discharge Information Case Management Discharge Plan : Case Management Discharge Plan Data 03/29/2023 17:13 EDT Discharge Level of Care at Discharge In Error (In Error) Discharge VNA/Hospice/Home Care In Error (In Error) Name of Agency #1 In Error (In Error) Service Categories #1 In Error (In Error) Service Comments #1 In Error (In Error) Rehabilitation Discharge : Rehab Discharge Index 04/03/2023 9:19 EDT Walker: distance < 10 04/02/2023 9:03 EDT Walker: distance < 10 04/01/2023 8:03 EDT Walker: distance 10-20 03/31/2023 13:42 EDT Walker: distance 10-20 03/30/2023 8:42 EDT Walker: distance < 10 * Lovely Bowles RN: PERFORM Event Display: Progress Note Hospital Authored Date: [id number] Patient being discharged to [facility] via ambulance at 1600.. * Lovely Bowles RN: PERFORM Event Display: Progress Note Hospital Authored Date: +CSM on LUE. Able to wiggle fingers. Fingers warm to the touch. + cap refill * Estefania Hu RN: SIGN, VERIFY, MODIFY, SIGN, PERFORM Event Display: Progress Note Hospital Authored Date: Patient: AXEL KENYN Age: 68 years Sex: Female : 1955 Associated Diagnoses: None Author: Estefania Hu RN Findings Problem Related to Alteration in Musculoskeletal : Alteration in Musculoskeletal Func/new 04/03/2023 22:00 EDT Alteration in Musculoskeletal Related to Fracture, Mobility, Orthopedic Procedure, Other: L wrist fx, R hip IM nailing 03/25 Goals & Outcomes, Musculoskeletal Affected extremity will maintain color/motion/sensation, Pt able to perform ADL's to best of ability, Pt demonstrates precautions/exercise/ transfers per protocol, Pt will be free from complications of immobility, Pt will demonstrate ability to participate in AD L's, Pt will report acceptable level of comfort/pain relief Interventions, Musculoskeletal Monitor patients ambulation status, monitor Color/Motion/Sensation, Assist with repositioning, Encourage deep breathing & coughing exercises, Notify MD immediately if tissue perfusion deteriorates, Obtain assistive devices as needed, Teach & Encourage use of Incentive spirometer, Teach Pt/caregiver on ADL's & adaptive equipment, Teach Pt/caregiver on exercises, Teach pt/caregiver on use of pain scale, Teach Pt/caregiver complications of immobility, Teach Pt/caregiver techniques to increase mobility, Teach Pt/caregiver on safety precautions BH Goals/Interventions, Musculoskeletal Yes Musculoskeletal, Problem Start 03/25/2023 22:51 Reviewed Plan with, Musculoskeletal Patient Patient Progression, Musculoskeletal Pt progressing according to plan . Nursing Data Cardiac Data. : Cardiac Data. 04/03/2023 20:45 EDT Cardiac Rhythm In Error (In Error) classification analyst In Error (In Error) Cardiovascular WNL (Modified) . Gastrointestinal Data. : Gastrointestinal Data. 04/03/2023 20:45 EDT Last Bowel Movement 03/31/2023 GI WNL Normal Bowel Pattern Daily . Genitourinary Data. : Genitourinary Data. 04/03/2023 20:45 EDT Urinary catheter type Single Lumen Indwelling Urinary Catheter Urine Color Yellow Urine Description Clear WNL except . HEENT Data. : HEENT Assessment 04/03/2023 20:45 EDT HEENT, Adult WNL . Integumentary Data. : Integumentary Data. 04/03/2023 20:45 EDT Skin Integrity Not intact Activity Walks occasionally Mobility Slightly limited Integumentary WNL except . IV Lines. : IV Lines. 04/03/2023 22:03 EDT Right Upper arm 20 gauge Peripheral IV Activity: Assess Peripheral IV Assess Compare Touch: A/C/T Done, no complications Peripheral IV Site Assessment: Clean, dry and intact Peripheral IV Site Drainage: None Peripheral IV Dressing: Clean, dry and intact . Musculoskeletal Data. : Musculoskeletal Data. 04/03/2023 20:45 EDT Musculoskeletal Symptoms Fracture Musculoskeletal WNL except . Vital Signs : VITAL SIGNS SECTION 04/03/2023 18:28 EDT Temperature 98.5 DegF Temperature Route Oral Pulse Rate 78 bpm Respiratory Rate 17 br/min Respiratory Rate 18 br/min Systolic Blood Pressure 103 mm Hg Diastolic Blood Pressure 74 mm Hg Blood pressure sites Arm, right Mean Arterial Pressure 84 mm Hg Pulse Pressure 29 mm Hg Oxygen Saturation 99 % Liters per Minute 2 L/min Mode of Delivery (Oxygen) Nasal cannula . Evaluation Patient is a 68yr F post op from R Hip IM nailing by Dr. Oscar on 03/25. L wrist FX-non op. VSS, A+Ox3. +CSM, +PP, strong dorsi plantar flexion. Lung sounds clear, denies SOB. Encouraged use of incentive spirometer, x10 per hour. 2L Nasal cannula. Refused Neb. treatment despite providing education on importance. Cardiac wnl. +BSx4, abdomen soft, nontender. Last BM 03/31. Administered PRN Colace, Senna. Patient complained of nausea, administered PRN IV Zofran w positive relief. Tolerating regular diet. Noland catheter in place, draining CYU. T+R in bed. R hip Band-Aid dressing C/D/I. L wrist cast+usha wrap intact. Pain 8/10 w relief from Tylenol 650mg, Dilaudid 2mg. Continue DVT prophylaxis w c-b oots, Lovenox. Frequent safety checks, bed in lowest position, call torres within reach. . Discharge Information Case Management Discharge Plan : Case Management Discharge Plan Data 03/29/2023 17:13 EDT Discharge Level of Care at Discharge Homehealth/VNA Discharge VNA/Hospice/Home Care [facility] [phone] Name of Agency #1 [facility] Service Categories #1 Occupational Therapy, Physical Therapy, Correction, Other: Delivery of Methadone form [facility] Service Comments #1 The nurse will call you to schedule a visit. if you have any questions or concerns please call them at [facility] [phone] Rehabilitation Discharge : Rehab Discharge Index 04/03/2023 9:19 EDT Walker: distance < 10 04/02/2023 9:03 EDT Walker: distance < 10 04/01/2023 8:03 EDT Walker: distance 10-20 03/31/2023 13:42 EDT Walker: distance 10-20 03/30/2023 8:42 EDT Walker: distance < 10 03/29/2023 11:05 EDT Walker: distance In Error (In Error) * Viji Bess RN: PERFORM, SIGN, VERIFY Event Display: Progress Note Hospital Authored Date: Patient: AXEL KENNY Age: 68 years Sex: Female : 1955 Associated Diagnoses: None Author: Viji Bess RN Findings Problem Related to Alteration in Musculoskeletal : Alteration in Musculoskeletal Func/new 04/03/2023 11:00 EDT Alteration in Musculoskeletal Related to Fracture, Mobility, Orthopedic Procedure, Other: L wrist fx, R hip IM nailing 03/25 Goals & Outcomes, Musculoskeletal Affected extremity will maintain color/motion/sensation, Pt able to perform ADL's to best of ability, Pt demonstrates precautions/exercise/ transfers per protocol, Pt will be free from complications of immobility, Pt will demonstrate ability to participate in AD L's, Pt will report acceptable level of comfort/pain relief Interventions, Musculoskeletal Monitor patients ambulation status, monitor Color/Motion/Sensation, Assist with repositioning, Encourage deep breathing & coughing exercises, Obtain assistive devices as needed, Teach Pt/caregiver on exercises, Teach pt/caregiver on use of pain scale, Teach Pt/caregiver complications of immobility, Teach Pt/caregiver techniques to increase mobility BH Goals/Interventions, Musculoskeletal Yes Musculoskeletal, Problem Start 03/25/2023 22:51 Reviewed Plan with, Musculoskeletal Patient Patient Progression, Musculoskeletal Pt progressing according to plan . Nursing Data Pain Data : PAIN SECTION 04/03/2023 11:04 EDT Pain Location Hip, right 1 - 10 Pain Scale Score 6 . Narrative/Incidental A+Ox4. Plesant and Cooperative with care. R hip IM nailing + L wrist non operative fracture - fall at home. Lovenox for DVT prophylaxsis. pt is on 28mg of methadone. Dilaudid 2mg q4h for pain management. Therapeutic bed. Coccyx updated photos in [facility]. Attempted to put mepalex on heels but pt refused. +BS, BM 03/31. Docusate and miralax admin. sodium restricted diet. 2a OOB to chair. pt is resting inbed with arm L arm elevated on pillow, call torres and tray table within reach. No further issues at this time. . Discharge Information Case Management Discharge Plan : Case Management Discharge Plan Data 03/29/2023 17:13 EDT Discharge Level of Care at Discharge Homehealth/VNA Discharge VNA/Hospice/Home Care [facility] [phone] Name of Agency #1 [facility] Service Categories #1 Occupational Therapy, Physical Therapy, Correction, Other: Delivery of Methadone form [facility] Service Comments #1 The nurse will call you to schedule a visit. if you have any questions or concerns please call them at [facility] [phone] Rehabilitation Discharge : Rehab Discharge Index 04/02/2023 9:03 EDT Walker: distance < 10 04/01/2023 8:03 EDT Walker: distance 10-20 03/31/2023 13:42 EDT Walker: distance 10-20 03/30/2023 8:42 EDT Walker: distance < 10 03/29/2023 11:05 EDT Walker: distance In Error (In Error) Consult note * Devin Smith: MODIFY, MODIFY, MODIFY, MODIFY, PERFORM Event Display: Consultation Note Authored Date: Patient: ??ZOYA, AXEL ? Age:??68 Years?Sex:??Female?:??1955?? Chief Complaint/Reason for Consult Right hip pain and left wrist pain History of Present Illness Orthopedic consultation was requested by ??Cornelius in [facility] emergency department ?? Axel is a??68-year-old female with a past medical history of??hep C, cirrhosis,??end-stage lung disease secondary to COPD??on??home oxygen, CKD??who presented to??[facility] today after having a mechanical trip and fall. ??Patient stated that she was??trying to walk around her kitchen when she accidentally tripped??on her oxygen tubing??and fell on her to her right side.?? She denies any head strike or LOC at the time of injury.?? She is currently not on any anticoagulation.?? Patient states that she??currently has pain in the right hip??and left wrist. ??She stated that the left wrist pain began??after she tried to push??her body weight up??with her left wrist and she began to experience significant pain in the area. ??Patient stated that she previously??had a fracture in this left wrist??however??no surgery or??reduction was performed. ??Patient states that she typically uses a cane??for ambulation at long distances however??does not typically use any??ambulatory device??throughouther home.?? Imaging in the ED shows a??right hip fracture??and the left??distal radius fracture.?? Orthopedics was consulted for further treatment recommendations. Review of Systems Denies fevers, chills or sweats. ??Denies shortness of breath and chest pain. ??Denies other injuries or painful joints. Physical Exam Vitals & Measurements T:??97.9?F?? HR:??85??(Peripheral)?? RR:??18?? BP:??105/69?? SpO2:??99%?? Patient is well-developed and in no acute distress. ??Alert and cooperative with examination. ??Mood and affect appropriate.?? Alert??and oriented x4. ??Examined on a stretcher in the emergency department.? HEENT: Atraumatic and normocephalic Cardiac: Per ED provider Pulmonary: Per ED provider Abdomen: Soft, nontender, nondistended. ?? Right upper extremity: Full, supple, nonpainful range of motion of shoulder, elbow, wrist and digits. ??Areas of ecchymosis/venous changes can be noted??about??the arm. ??No tenderness to palpation. ??Radial pulse 2+. Grossly neurovascularly intact radial, median, ulnar nerve distributions. ?? Left upper extremity:??Examination reveals no discomfort to palpation about the shoulder or elbow. ??Range of motion of same near full, supple and non- irritable. ??Moderate edema and ecchymosis is noted about the wrist. ??Deformity of the wrist noted with dorsal displacement of the carpus. ??Patient is exquisitely tender to palpation about the distal radius and ulna, as well as the radiocarpal and ulnar carpal intervals. ??Decreased range of motion is noted of the wrist due to pain. ??Mild edema of the digits. Digits with mildly decreased, supple, non-irritable range of motion. ??Compartmentsare soft. ??No evidence of acute carpal tunnel syndrome.?? Radial pulse 2+. ??Neurovascularly intact radial, median and ulnar nerve distributions. ?? Procedure:??After conscious sedation??applied by the??ED staff. ??Finger traps were applied to the index and long fingers and attached to an IV pole. ??15 pounds of weight were then applied to a stockinette which was secured to the upper arm. ??Patient's arm was allowed to hang for approximately5-10 minutes. ??The distal radius fracture was then manipulated and reduced. ??Once deformity improved and neutral alignment was obtained, a sugar tong splint was applied and postreduction films wereordered. ?? Right lower extremity:??Examination reveals external rotation at the hip. ??Shortening is noted as compared to contralateral lower extremity examination. ??Patient is exquisitely tender to palpation about the hip and is unable to tolerate range of motion of same. ??Moderate edema noted about the hip. ??No discomfort about the femur distally. ??No discomfort about the knee, foot or ankle. ??Range of motion of the knee is nonpainful but decreased due aggravation of proximal hip pain. ??Patient has active dorsiflexion and plantar flexion strength. ??Palpable DP and PT pulses. ??Grossly intact sensation to light touch. ??Compartments are soft. ??Calf supple and nontender. ?? Left lower extremity: Full, supple, non-painful range of motion of the hip, knee, foot and ankle. ??No tenderness to palpation. ??Calf supple and nontender. Active dorsiflexion and plantar flexion strength. ??DP pulse 2+. ??Grossly neurovascularly intact. Assessment/Plan Distal??left radius fracture Right intertrochanteric??femur fracture ?? Intertrochanteric Femur Plan: Patient is admitted to the medical service. ??Orthopedics will follow. ??Preoperative medical??optimization??is requested. ??Patient will be made n.p.o. after midnight tonight for possible surgery tomorrow. ??Recommend strict nonweightbearing status to the RLE and the LUE, elevation, pain control and DVT prophylaxis. Patient is added to the orthopedic trauma surgery OR add on list with plan for surgical fixation once medically??optimized??and when OR schedule allows. ??This was discussed with the patient who voiced understanding. ??Questions are asked and answered.? Left Distal Radius Plan: No acute orthopedic surgical intervention needed at this time. Patient is instructed in strict nonweightbearing status, gentle active digital range of motion and elevation. ??Splint is to remain clean, dry and intact until follow-up appointment at [facility] with Dr. Schreiber??in the medical office building, [address]. ??Patient instructed to call [phone] to schedule follow-up appointment at the beginning of next week.?All questions are asked and answered. ??Discussed possible need for outpatient surgical fixation. ?? Case discussed with Dr. Oscar and Dr. Schreiber Problem List/Past Medical History Ongoing Abdominal pain Benign essential tremor Bipolar II, anxiety disorder NOS, borderline personality disorder - therapist with [facility], [employer], Linda Evans, Chronic hepatitis C s/p treatment in 2014 - cured Chronic kidney disease (CKD), stage 4 - followed by [facility] Cigarette smoker Cirrhosis - followed by GI; 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 COPD, chronic emphysema, on chronic oxygen supplementation History of substance abuse, former heroin iv, cocaine, Hypertension Left knee OA - considering TKR with [facility] 12/2019 Obesity PTSD - Post-traumatic stress disorder Pulmonary nodule Rheumatoid arthritis Squamous cell lung cancer Stress incontinence, female Tubular adenoma of colon Procedure/Surgical History Laparoscopic cholecystectomy with cholangiography: 12/14/21 Colonoscopy, flexible, proximal to splenic flexure; diagnostic, with or without collection of specimen(s) by brushing or washing, with or without colon decompression (separate procedure): 05/18/14 delivery only; Appendectomy; Allergies Depakote Talwin Tylox traZODONE Social History Currently lives??in an apartment alone Right hand dominant The apartment is on the second floor with no elevator Retired Denies any alcohol use Currently smokes about 4 to 5 cigarettes/day Denies any marijuana use Denies any illicit drug use Family History Denies history of adverse reaction to anesthesia, bleeding dyscrasias, DVT. Radiology Three-view x-ray of the left wrist was reviewed by myself which shows a distal radius fracture withapex volar angulation.?? Mild impaction can be appreciated on the dorsal aspect of the distal radius.?? The carpus is dorsally displaced however the radiocarpal joint is still intact.?? There is alsoa fracture of the ulnar styloid with dorsal displacement.?? No other acute fractures or dislocations can be seen at this time. ?? 1 view x-ray of the pelvis was reviewed by myself which shows a comminuted and shortened intertrochanteric right femur fracture with mild varus angulation. The hip joint itself is still intact.?? No other acute fractures or dislocations can be seen at this time. ?? 2 view x-ray of the right femur was reviewed by myself which shows the intertrochanteric femur fracture described above.?? No other acute fractures or dislocations can be noted at this time. ?? Postreduction??three-view x-ray of the left wrist??was reviewed by myself which shows a neutrally aligned??distal radius fracture with sugar-tong splint in place. Lab Results Labs Last 24 Hours BLOOD COUNT & DIFF ? Event Name?? Event Result?? Date/Time?? WBC 11 k/mm3 03/23/23 17:33:00 RBC 4.31 m/mm3 03/23/23 17:33:00 Hgb 12.3 Gm/dL 03/23/23 17:33:00 Hct 40.3 % 03/23/23 17:33:00 MCV 93.5 femtoliters 03/23/23 17:33:00 MCH 28.5 pg 03/23/23 17:33:00 MCHC 30.5 g/dL??Low 03/23/23 17:33:00 Platelet Count 194 k/mm3 03/23/23 17:33:00 MPV 10 femtoliters 03/23/23 17:33:00 Nucleated RBC (Automated) 0 #/100 WBC'S 03/23/23 17:33:00 ? CHEM GENERAL ? Event Name?? Event Result?? Date/Time?? Sodium 138 mmol/L 03/23/23 17:33:00 Chloride 96 mmol/L??Low 03/23/23 17:33:00 Bicarbonate Level 32 mmol/L??High 03/23/23 17:33:00 Anion Gap 10 03/23/23 17:33:00 Glucose Level 97 mg/dL 03/23/23 17:33:00 BUN 15 mg/dL 03/23/23 17:33:00 Creatinine-Blood 1 mg/dL 03/23/23 17:33:00 ? Note * Mariana Garland RN: PERFORM Event Display: Discharge/Transfer Note Hospital Authored Date: [id number] Nursing Discharge Note Entered On: 04/04/2023 16:38 EDT Performed On: 04/04/2023 16:38 EDT by Mariana Garland RN Nursing Discharge Note 2 Discharge Time : 04/04/2023 16:35 EDT Discharge Level of Care at Discharge : [facility] facility Discharge Nursing Homes/Rehab Facilities : [facility] [phone] [place] [address] Patient Left Unit Via : Ambulance Patient Accompanied Off Unit with : Ambulance/Chair Van Personnel Handover Given to Transport Personnel : Yes DC Instructions Provided & Signed by Pt : No Patient Understands D/C Instructions : Yes Verbalized Understanding of D/C Plan By : Patient Patient Instructions Discharge Signed : No Instructions for Discharge Comments : facility transfer Did Pt have Specialty Bed or Wound Vac : Yes Dada LYNN, Mariana - 04/04/2023 16:38 EDT * Kendra HARRIS, Yomi Albert: MODIFY, PERFORM, MODIFY Event Display: Discharge/Transfer Note Hospital Authored Date: [id number] Patient: ??ZOYA, AXEL ? Age:??68 Years?Sex:??Female?:??1955?? Patient Information Discharge Location: [facility] Primary Care Physician: Yvette Chen MD Admit Date/Time: 03/23/23 19:26 Discharge Disposition Discharge Disposition: Correction Facility/Rehab Discharge Diagnosis Fall at home (W19.XXXA) Fracture of left radius (S52.92XA) Femur fracture, right (S72.91XA) ?? _ Discharge Medications Acetaminophen (acetaminophen 650 mg oral tablet, extended release)?1?tab(s)?By Mouth?Every 8 hours?as needed? NEEDED FOR MODERATE PAIN Albuterol (albuterol 0.083% inhalation solution)?1?vials?Inhalation?Every 4 to 6 hours?as needed? NEEDED FOR WHEEZE Albuterol (Ventolin HFA 108 mcg/inh inhalation aerosol with adapter)?2?puff(s)?Inhalation?Every 4 hours?as needed?Wheezing/Shortness of Breath Alprazolam?1?Milligram?By Mouth?Daily?as needed?as needed for anxiety Amlodipine (amLODIPine 10 mg oral tablet)?1?tab(s)?By Mouth?Daily Ammonium Lactate 12% (Amlactin 12% lotion)?1?lei?Topically?2 times a day?as needed?Dry Skin Cholecalciferol (Vitamin D3 1000 intl units oral tablet)?1?tab(s)?1,000?International Unit?By Mouth?Daily Clonazepam (ClonAZEPAM Tablet)?1.5?By Mouth?Daily at bedtime Clonazepam?1?Milligram?By Mouth?2 times a day Docusate (docusate sodium 100 mg oral capsule)?1?capsule?100?Milligram?By Mouth?2times a day?as needed?as needed for constipation?with plenty of water Durable Medical Equipment (Oxygen therapy; oxygen concentrator)?See Instructions?Oxygen 2 L at rest and 3 L with activityDx: COPD, h/o lung cancer, chronic hypoxiaLON 99 Durable Medical Equipment (Air conditioner)?See Instructions?To use to keep the room cool in the summerDx: COPD on home oxygen, J43.9, Z99.81LON 99Please fax to [facility] Durable Medical Equipment (Ensure)?See Instructions?As meal replacementDx: Pre-DM R73.03 and obesity E66.9Butter pecan if possibleLON 6 monthsPlease fax to [facility] Durable Medical Equipment (Air Conditioner)?See Instructions?Dx: COPD J44.9To help avoid exacerbationsLON 99Please fax to [facility] Durable Medical Equipment (Pads)?See Instructions?Dx: Stress Urinary Incontinence N39.34/Dilan 99Please fax to: [phone] N/CCA one care attn to [facility] Durable Medical Equipment (Ensure)?See Instructions?2/dayDx: Unintentional weight loss, advanced COPD, cirrhosisLON 99Please fax to [facility] Durable Medical Equipment (Various Tube Drainage Supplies)?See Instructions?10cc syrings, alcohol pads, gloves (medium), sterile saline, disposable chuxs, drain sponges (3x3) and tapeDx: surgical tube drainage; cholecystitis K81.9 with c-tube in place Z93.4Supplies to change dressing every 3 days or if the dressing bec... Durable Medical Equipment (Alcohol pads)?See Instructions?Dx: surgical tube drainage; cholecystitis K81.9 with c-tube in place Z93.4Supplies to change dressing every 3 days or if the dressing becomes soiledLON: 3 months Durable Medical Equipment (Gloves, medium)?See Instructions?Dx: surgical tube drainage; cholecystitis K81.9 with c-tube in place Z93.4Supplies to change dressing every 3 days or if the dressingbecomes soiledLON: 3 months Durable Medical Equipment (10 cc syringe)?See Instructions?Dx: surgical tube drainage; cholecystitis K81.9 with c-tube in place Z93.4Supplies to change dressing every 3 days or if the dressing becomes soiledLON: 3 months Durable Medical Equipment (Sterile saline)?See Instructions?Dx: surgical tube drainage; cholecystitis K81.9 with c-tube in place Z93.4Supplies to change dressing every 3 days or if the dressingbecomes soiledLON: 3 months Durable Medical Equipment (Disposable chux pads)?See Instructions?Dx: surgical tube drainage;cholecystitis K81.9 with c-tube in place Z93.4Supplies to change dressing every 3 days or if the dressing becomes soiledLON: 3 months Durable Medical Equipment (Drain sponges, 3x3)?See Instructions?Dx: surgical tube drainage; cholecystitis K81.9 with c-tube in place Z93.4Supplies to change dressing every 3 days or if the dressing becomes soiledLON: 3 months Durable Medical Equipment (paper tape)?See Instructions?Dx: surgical tube drainage; cholecystitis K81.9 with c-tube in place Z93.4Supplies to change dressing every 3 days or if the dressing becomes soiledLON: 3 months Durable Medical Equipment (Pulse oximeter)?See Instructions?Use to monitor home O2 satDx: COPD, h/o lung cancer, chronic hypoxia, on home oxygen therapyLON 99Please fax to [facility] Emollients, Topical (Lubriderm Advanced Therapy topical lotion)?See Instructions?Topically 4 times a day Enoxaparin?0.4?Milliliter?40?Milligram?Subcutaneous Injection?Daily fluticasone/umeclidinium/vilanterol (fluticasone/umeclidinium/vilanterol 100 mcg-62.5 mcg-25 mcg/inh inhalation powder)?1?puff(s)?Inhalation?Daily?at the same time every day Hydromorphone (Dilaudid 2 mg oral tablet)?4?Milligram?By Mouth?Every 4 hours?as needed?Pain , Moderate?for 5?Days HydrOXYzine (hydrOXYzine hydrochloride 50 mg oral tablet)?1?tab(s)?By Mouth?Daily at bedtime?as needed? NEEDED FOR SLEEP Lamotrigine (lamotrigine 25 mg oral tablet)?50?Milligram?2?tablet?By Mouth?3 times a day?unsure exact dosing; rx by psychiatry #540/3 month supply Lisinopril (lisinopril 2.5 mg oral tablet)?1?tablet?By Mouth?Daily Methadone (Methadone Liquid)?28?Milligram?By Mouth?Daily Miscellaneous Rx (Nebulizer supplies including tubing and mouth piece)?See Instructions?Dx: COPDLON 99Fax to [facility] Miscellaneous Rx (VITAMIN D3 25 MCG TABLET)?TAKE 1 TABLET BY MOUTH EVERY DAY Oxygen?as needed?24 hours Pantoprazole (pantoprazole 40 mg oral delayed release tablet)?TAKE 1 TABLET BY MOUTH EVERY DAY Pentoxifylline (pentoxifylline 400 mg oral tablet, extended release)?400?Milligram?1?tablet?By Mouth?2 times a day Ursodiol?500?Milligram?By Mouth?2 times a day ? Quality Measures Tobacco Use Treatment:? Allergies Allergies ?(Active and Proposed Allergies Only) Tylox? (Severity: Unknown severity, Onset: Unknown) Depakote? (Severity: Unknown severity, Onset: Unknown) Talwin? (Severity: Unknown severity, Onset: Unknown) traZODONE? (Severity: Unknown severity, Onset: Unknown) ? Future Appointments Sunday 9:20 AM EDT ?? Where: [facility] [address] [place] [address]- Status: Pending Hospital Course 68-year-old female with past medical history of essential hypertension, active cigarette smoker (currently 2 cigarettes/day-down from prior 1pack/day), severe COPD/emphysema with chronic hypoxia???on3 LPM's NC at all times (follows with Dr. Solis), GERD, HCV complicated by cirrhosis-reportedly treated, squamous cell carcinoma of the lungs- s/p resection AND radiation therapy, IV drug use???onmethadone, CKD stage III/IV (related to hypoperfusion)- follows with Dr. Mckeon, bipolar disorder II/anxiety disorder presented fall resulting in Right intertrochanteric femur fracture?? : S/P Rightintertan 03/25, Left distal radius fracture-s/p reduction/splint application, she is medically clear for discharge to rehab facility accepting methadone. anticipate length of stay??at the??[facility] facility is less than 30 days ?? of note,??she received her??last dose of methadone of?? Methadone 28 mg oral solution on 04/04/23 at 8:20 Objective Assessment and Plan ?? S/P mechanical fall at home Right intertrochanteric femur fracture?? : S/P Right intertan 03/25 Left distal radius fracture-s/p reduction/splint application by Ortho team. - Maintain splint to LUE - OOB with PT, TDWB RLE, platform attachment on walker for LUE fracture - DVT prophylaxis: Lovenox x 28 days post-op ?? Measurements?? Height: 153 cm (04/04/23) Weight: 57 kg (03/25/23) Dry Weight: 57 kg (03/24/23) Body Mass Index: 24.35 kg/m2 (03/25/23) ? Vital Signs?? Temperature: 98.3 DegF (04/04/23 07:28:00) Temperature Route: Oral (04/04/23 07:28:00) Pulse Rate: 74 bpm (04/04/23 07:28:00) Respiratory Rate: 19 br/min (04/04/23 09:20:00) Respiratory Rate: 19 br/min (04/04/23 09:20:00) Systolic Blood Pressure: 110 mm Hg (04/04/23 07:28:00) Diastolic Blood Pressure: 79 mm Hg (04/04/23 07:28:00) Blood pressure sites: Arm, right (04/04/23 07:28:00) Mean Arterial Pressure: 89 mm Hg (04/04/23 07:28:00) Pulse Pressure: 31 mm Hg (04/04/23 07:28:00) Oxygen Saturation: 98 % (04/04/23 07:28:00) Liters per Minute: 2 L/min (04/04/23 02:57:00) Mode of Delivery (Oxygen): Room air (04/04/23 07:28:00) Early Warning Score: 0 (04/04/23 10:51:36) ? . Physical Exam General: Awake, not in??distress Cardiac: RRR, no murmurs,?? Pulmonary: Normal breathing sounds bilaterally Abdominal: No tenderness or rebound tenderness, : chronic noland. MSK: decreased ROM of right hip dressing clean dry intact. and left wrist immobilized in splint with soft cast Surgical Procedures Intramedullary Nailing Femur Intermedull 03/25/2023 16:48 Pending Results Add On Lab Order ordered on 03/29/2023 RBCs for Surgery ordered on 03/25/2023 Transfuse RBCs ordered on 03/27/2023 Follow-Up Appointments Added Follow Up ?Time Frame ?Comments Gustavo HARRIS, Yvette Robert Patient Instructions -Please follow-up with Dr. Oscar at the [facility] office in 4-6 weeks. Please call [phone] to schedule/confirm your appointment ??-Splint is to remain clean, dry and intact until follow-up appointment at [facility] with Dr. Schreiber??in the medical office building, [address].?? please call [phone] in 1-2 days post discharge schedule an appointment Home Health Face to Face ^HomeHealthFTF Results Discharge Labs BLOOD BANK Blood Type B Positive ()?? 04/02/2023 01:16 Antibody Screen Negative ()?? 04/02/2023 01:16 RBC Unit ID [id number] ()?? 03/27/2023 11:41 RBC Available PT ()?? 03/27/2023 11:41 ?? BLOOD COUNT & DIFF WBC 3.8 k/mm3 (Low)?? 04/02/2023 01:23 RBC 2.60 m/mm3 (Low)?? 04/02/2023 01:23 Hgb 7.7 Gm/dL (Low)?? 04/02/2023 01:23 Hct 25.0 % (Low)?? 04/02/2023 01:23 MCV 96.2 femtoliters ()?? 04/02/2023 01:23 MCH 29.6 pg ()?? 04/02/2023 01:23 MCHC 30.8 g/dL (Low)?? 04/02/2023 01:23 Platelet Count 247 k/mm3 ()?? 04/02/2023 01:23 RDW-SD 48.7 femtoliters (High)?? 04/02/2023 01:23 MPV 9.0 femtoliters (Low)?? 04/02/2023 01:23 Nucleated RBC (Automated) 0.0 #/100 WBC'S ()?? 04/02/2023 01:23 Abs. NRBC 0.0 k/mm3 ()?? 04/02/2023 01:23 Abs. Neut 9.9 k/mm3 (High)?? 03/23/2023 17:33 Abs. Lymph 0.6 k/mm3 (Low)?? 03/23/2023 17:33 Abs. Love 0.5 k/mm3 ()?? 03/23/2023 17:33 Abs. Eo 0.0 k/mm3 ()?? 03/23/2023 17:33 Abs. Baso 0.0 k/mm3 ()?? 03/23/2023 17:33 Neut % 89.8 % (High)?? 03/23/2023 17:33 Lymph % 5.0 % (Low)?? 03/23/2023 17:33 Love % 4.3 % (Low)?? 03/23/2023 17:33 Eos % 0.2 % ()?? 03/23/2023 17:33 Baso % 0.2 % ()?? 03/23/2023 17:33 Imm Gran 0.5 % ()?? 03/23/2023 17:33 Abs. Imm Gran 0.1 k/mm3 ()?? 03/23/2023 17:33 ?? CHEM GENERAL Sodium 136 mmol/L ()?? 03/29/2023 01:44 Potassium 4.8 mmol/L ()?? 03/29/2023 01:44 Chloride 96 mmol/L (Low)?? 03/29/2023 01:44 Bicarbonate Level 32 mmol/L (High)?? 03/29/2023 01:44 Anion Gap 8 ()?? 03/29/2023 01:44 Glucose Level 92 mg/dL ()?? 03/29/2023 01:44 BUN 13 mg/dL ()?? 03/29/2023 01:44 Creatinine-Blood 0.7 mg/dL ()?? 03/29/2023 01:44 Estimated GFR Creatinine 93 ML/MIN/1.73 M2 ()?? 03/29/2023 01:44 Calcium 8.5 mg/dL (Low)?? 03/29/2023 01:44 Phosphorus 3.0 mg/dL ()?? 03/25/2023 01:54 Magnesium 1.8 mg/dL ()?? 03/25/2023 01:54 Protein, Total 4.4 Gm/dL (Low)?? 03/29/2023 01:44 Albumin 2.6 Gm/dL (Low)?? 03/29/2023 01:44 AG Ratio 1.4 ()?? 03/29/2023 01:44 Alkaline Phosphatase 101 units/L ()?? 03/29/2023 01:44 AST (SGOT) 39 units/L (High)?? 03/29/2023 01:44 ALT (SGPT) 15 units/L ()?? 03/29/2023 01:44 Bilirubin, Total 1.6 mg/dL (High)?? 03/29/2023 01:44 Bilirubin, Direct 0.4 mg/dL (High)?? 03/23/2023 22:24 Bilirubin, Indirect 0.5 mg/dL ()?? 03/23/2023 22:24 Iron Level 53 mcg/dL ()?? 03/29/2023 01:44 Iron Binding Capacity, Unsaturated 174 mcg/dL ()?? 03/29/2023 01:44 Iron Binding Capacity, Estimated Total 227 mcg/dL ()?? 03/29/2023 01:44 % Iron Saturation 23 % ()?? 03/29/2023 01:44 Ferritin Level 474 ng/mL (High)?? 03/29/2023 01:44 ?? COAG INR 1.1 ()?? 03/23/2023 22:24 Protime (PT) 11.7 seconds (High)?? 03/23/2023 22:24 ?? URINE OTHER Est Creatinine Clearance 56.69 mL/min ()?? 03/28/2023 03:34 ? VIROLOGY COVID-19 by RT-PCR NEGATIVE ()?? 03/23/2023 19:23 ? 45??minutes spent on discharge * Bernabe LYNN, Lidia Albert: PERFORM, SIGN, VERIFY Event Display: Case Management Discharge Plan Authored Date: Patient: AXEL KENNY Age: 68 years Sex: Female : 1955 Associated Diagnoses: None Author: Lidia Kidd RN Discharge Plan Case Management Discharge Plan : Case Management Discharge Plan Data 04/04/2023 10:59 EDT Discharge Level of Care at Discharge [facility] facility Discharge Nursing Homes/Rehab Facilities [facility] at [address] [place] [address] Discharge Transportation Arranged [facility] [address] [place] [address] Discharge Arranged Transport Date/Time 04/04/2023 16:00 Mode of Transportation Arranged Ambulance Name of Agency #1 [facility] Service Categories #1 Occupational Therapy, Oxygen Therapy, Physical Therapy, Correction * Mariana Garlnad RN: MODIFY, PERFORM Event Display: Patient Education/Instruction Authored Date: [id number] Inpatient Adult Discharge Instructions [address] [address] Name: AXEL KENNY : 1955 Visit: 03/23/2023 19:26:00 Current Date: 04/04/2023 15:31 Account: [id number] Inpatient Adult Discharge Instructions We would like to thank you for allowing us to assist you with your healthcare needs. The following includes patient education materials and information regarding your injury/illness. Our entire staffstrives to provide an excellent experience for our patients and their families. PLEASE ENSURE YOU FOLLOW-UP PER THE INSTRUCTIONS BELOW! ?? YOUR OPINION IS IMPORTANT TO US! Please complete the survey you may receive by mail or email. Your feedback will be used to make improvements to the healthcare experiences of our patients and their families. Surveys are administered by [employer] ?? If further treatment with your primary care physician or another doctor is recommended, it is important for you to keep the appointment. Call your primary care physician or return to the Emergency Department immediately if your condition worsens, fails to improve, or new symptoms develop. If you need to find a doctor, you can call [facility] eyesFinder for a referral at [phone] or toll free at [phone] [email or web address] ([phone]) or log in to [email or web address].. ?? [facility], in keeping with [facility] guidance, no longer requires face masks for staff, patientsor visitors in most situations. Similiar to time spent indoors at other locations, there is the chance that you were exposed to repiratory viruses during your time with us (such as flu or COVID-19). If you develop symptoms concerning for a viral respiratory infection, please seek testing (and treatment if indicated) from your medical provider or home test kit. ?? You can view and manage your care through the patient portal or by using a health care lei of your choosing. [facility] is a website that allows you to securely view your medical information including your hospital discharge summary, office visit summaries, medications and follow-up visits. You can also request appointments, renew medications, and request access to your medical information using a health care lei of your choosing, or just ask a question. You can enroll at [email or web address] or register during your next office visit. You have been discharged from [facility], Patient Care Unit: S3. If you have any questions regarding these instructions after you leave, please call us and we will be happy to assist you. [facility] Your Care Team Attending Physician Kendra HARRIS, Yomi Albert Consulting Providers Leatha HARRIS, Paloma; Serafin HARRIS, Patria Montoya; Dayne HARRIS, Dony Montoya; Candie HARRIS, Brendon Carlson Discharging Providers Kendra HARRIS, Yomi Albert Reason for Admission trip and fall over oxygen tubing. right hip pain. pt refused collar. dnies striking head. no neck or back pain. Your Diagnosis Fall at home Fracture of left radius Femur fracture, right Tests Performed Below is a partial list of the tests performed during your hospitalization. You may have had other tests and procedures not included in this list. Please discuss all test results with your provider. Basic Metabolic Panel CBC CBC w/ Differential Comprehensive Metabolic Panel COVID-19 (Novel Coronavirus), Rapid PCR FERRITIN INR IRON & TIBC LFT's Lytes Magnesium Level Mg Level Phosphorus Level Potassium Level Type and Screen XR C-Arm > 1 Hour XR Femur 2 Views Right XR Pelvis 1 or 2 Views XR Wrist Comp Min 3 Views Left Primary Care Provider Gustavo HARRIS, Yvette Robert Advance Directive Health Care Proxy on File Yes - Health Care Proxy Discharge Vitals Temperature: 97.7 DegF Height: 153 cm Pulse Rate: 79 bpm Weight: 57 kg Respiratory Rate: 18 br/min Body Mass Index: 24.35 kg/m2 Systolic Blood Pressure: 116 mm Hg Body surface area: 1.56 Diastolic Blood Pressure: 61 mm Hg ?? Oxygen Saturation:??92 %??Low ?? Studies Pending All tests and labs ordered during this hospital stay have been completed unless listed below. Please discuss all pending results with your provider listed above in these instructions. ?? Add On Lab Order RBCs for Surgery Transfuse RBCs What to do next Instructions From Your Doctor -Please follow-up with Dr. Oscar at the [facility] office in 4-6 weeks. Please call [phone] to schedule/confirm your appointment ??-Splint is to remain clean, dry and intact until follow-up appointment at [facility] with Dr. Schreiber??in the medical office building, [address].?? please call [phone] in 1-2 days post discharge schedule an appointment Discharge Orders Scheduled Follow-Up Appointments Sunday 9:20 AM EDT ?? Where: [place] [address]- Status: Pending You Need to Schedule the Following Appointments Follow Up with??Gustavo HARRIS, Yvette Robert Where: ?? Discharge Medications AXEL KENNY :1955 Visit Date:03/23/2023 Medications: Please continue your medications until treatment is completed or stopped by your provider. Medications not listed below should be discontinued. Discuss any questions related to medications with your provider. What How Much When Why Instructions Next Dose New Enoxaparin 40 Milligram Subcutaneous Injection Daily 04/05?? AM New Hydromorphone (Dilaudid 2 mg oral tablet) 4 Milligram Oral Every 4 hours as needed for Pain , Moderate Duration: 5 Days Printed Prescription 04/04 2000 Changed Methadone (Methadone Liquid) 28 Milligram Oral Daily 04/05?? AM Unchanged Acetaminophen (acetaminophen 650 mg oral tablet, extended release) 1 tab(s) Oral Every 8 hours as needed for NEEDED FOR MODERATE PAIN as prescribed Unchanged Albuterol (albuterol 0.083% inhalation solution) 1 vials Inhalation Every 4 to 6 hours as needed for NEEDED FOR WHEEZE as prescribed Unchanged Albuterol (Ventolin HFA 108 mcg/ inh inhalation aerosol with adapter) 2 puff(s) Inhalation Every 4 hours as needed for Wheezing/Shortness of Breath as prescribed Unchanged Alprazolam 1 Milligram Oral Daily as needed for as needed for anxiety 04/05 as prescribed Unchanged Amlodipine (amLODIPine 10 mg oral tablet) 1 tab(s) Oral Daily as prescribed Unchanged Ammonium Lactate 12% (Amlactin 12% lotion) 1 lei Topically Twice a day as needed for Dry Skin as prescribed Unchanged Cholecalciferol (Vitamin D3 1000 intl units oral tablet) 1 tab(s) Oral Daily as prescribed Unchanged Clonazepam 1 Milligram Oral Twice a day as prescribed Unchanged Clonazepam (ClonAZEPAM Tablet) 1.5 Oral Daily at Bedtime 04/04?? PM Unchanged Docusate (docusate sodium 100 mg oral capsule) 1 capsule Oral Twice a day as needed for as needed for constipation with plenty of water ?? as prescribed Unchanged Durable Medical Equipment (10 cc syringe) See instructions Acute cholecystitis Dx: surgical tube drainage; cholecystitis K81.9 with c-tube in place Z93.4 ?? Supplies to change dressing every 3 days or if the dressing becomes soiled ?? CHARANJIT: 3 months ?? Unchanged Durable Medical Equipment (Air Conditioner) See instructions COPD, chronic emphysema, on chronic oxygen supplementation Dx: COPD J44.9 To help avoid exacerbations CHARANJIT 99 ?? Please fax to [facility] ?? Unchanged Durable Medical Equipment (Air conditioner) See instructions To use to keep the room cool in the summer Dx: COPD on home oxygen, J43.9, Z99.81 CHARANJIT 99 ?? Please fax to [facility] ?? Unchanged Durable Medical Equipment (Alcohol pads) See instructions Acute cholecystitis Dx: surgical tube drainage; cholecystitis K81.9 with c-tube in place Z93.4 ?? Supplies to change dressing every 3 days or if the dressing becomes soiled ?? CHARANJIT: 3 months ?? Unchanged Durable Medical Equipment (Disposable chux pads) See instructions Acute cholecystitis Dx: surgical tube drainage; cholecystitis K81.9 with c-tube in place Z93.4 ?? Supplies to change dressing every 3 days or if the dressing becomes soiled ?? CHARANJIT: 3 months ?? Unchanged Durable Medical Equipment (Drain sponges, 3x3) See instructions Acute cholecystitis Dx: surgical tube drainage; cholecystitis K81.9 with c-tube in place Z93.4 ?? Supplies to change dressing every 3 days or if the dressing becomes soiled ?? CHARANJIT: 3 months ?? Unchanged Durable Medical Equipment (Ensure) See instructions 2/ day Dx: Unintentional weight loss, advanced COPD, cirrhosis CHARANJIT 99 ?? Please fax to [facility] ?? Unchanged Durable Medical Equipment (Ensure) See instructions As meal replacement Dx: Pre-DM R73.03 and obesity E66.9 Butter pecan if possible CHARANJIT 6 months ?? Please fax to [facility] ?? Unchanged Durable Medical Equipment (Gloves, medium) See instructions Acute cholecystitis Dx: surgical tube drainage; cholecystitis K81.9 with c-tube in place Z93.4 ?? Supplies to change dressing every 3 days or if the dressing becomes soiled ?? CHARANJIT: 3 months ?? Unchanged Durable Medical Equipment (Oxygen therapy; oxygen concentrator) See instructions Oxygen 2 L at rest and 3 L with activity Dx: COPD, h/ o lung cancer, chronic hypoxia CHARANJIT 99 ?? Unchanged Durable Medical Equipment (Pads) See instructions Stress incontinence, female Dx: Stress Urinary Incontinence N39.3 4/ day CHARANJIT 99 ?? Please fax to: [phone] [facility] one care attn to Linda Evans ?? Unchanged Durable Medical Equipment (paper tape) See instructions Acute cholecystitis Dx: surgical tube drainage; cholecystitis K81.9 with c-tube in place Z93.4 ?? Supplies to change dressing every 3 days or if the dressing becomes soiled ?? CHARANJIT: 3 months ?? Unchanged Durable Medical Equipment (Pulse oximeter) See instructions Use to monitor home O2 sat Dx: COPD, h/ o lung cancer, chronic hypoxia, on home oxygen therapy CHARANJIT 99 ?? Please fax to [facility] ?? Unchanged Durable Medical Equipment (Sterile saline) See instructions Acute cholecystitis Dx: surgical tube drainage; cholecystitis K81.9 with c-tube in place Z93.4 ?? Supplies to change dressing every 3 days or if the dressing becomes soiled ?? CHARANJIT: 3 months ?? Unchanged Durable Medical Equipment (Various Tube Drainage Supplies) See instructions 10cc syrings, alcohol pads, gloves (medium), sterile saline, disposable chuxs, drain sponges (3x3) and tape ?? Dx: surgical tube drainage; cholecystitis K81.9 with c-tube in place Z93.4 ?? Supplies to change dressing every 3 days or if the dressing becomes soiled ?? CHARANJIT: 3 months ?? Unchanged Emollients, Topical (Lubriderm Advanced Therapy topical lotion) See instructions Topically 4 times a day ?? as prescribed Unchanged fluticasone/ umeclidinium/ vilanterol (fluticasone/ umeclidinium/ vilanterol 100 mcg-62.5mcg-25 mcg/ inh inhalation powder) 1 puff(s) Inhalation Daily at the same time every day ?? as prescribed Unchanged HydrOXYzine (hydrOXYzine hydrochloride 50 mg oral tablet) 1 tab(s) Oral Daily at Bedtime as needed for NEEDED FOR SLEEP as prescribed Unchanged Lamotrigine (lamotrigine 25 mg oral tablet) 2 tab(s) Oral 3 times a day unsure exact dosing; rx by psychiatry #540/ 3 month supply ?? 04/04?? PM Unchanged Lisinopril (lisinopril 2.5 mg oral tablet) 1 tab(s) Oral Daily as prescribed Unchanged Miscellaneous Rx (Nebulizer supplies including tubing and mouth piece) See instructions Dx: COPD CHARANJIT 99 ?? Fax to [facility] ?? Unchanged Miscellaneous Rx (VITAMIN D3 25 MCG TABLET) TAKE 1 TABLET BY MOUTH EVERY DAY ?? Unchanged Oxygen As needed for 24 hours Unchanged Pantoprazole (pantoprazole 40 mg oral delayed release tablet) TAKE 1 TABLET BY MOUTH EVERY DAY ?? 04/05?? AM Unchanged Pentoxifylline (pentoxifylline 400 mg oral tablet, extended release) 1 tab(s) Oral Twice a day 04/04?? PM Unchanged Ursodiol 500 Milligram Oral Twice a day 04/04?? PM ?? What How Much When Comments Stop Taking Omeprazole (omeprazole 20 mg oral enteric coated capsule) 1 capsule Oral Twice a day Test Results Below is a partial list of the most recent Laboratory test results done prior to this discharge. You may have had other tests and procedures not included in this list. Please discuss all test resultswith your provider. Est Creatinine Clearance - 56.69 mL/min (03/28/2023) RBC Available - PT (03/27/2023) RBC Unit ID - [id number] (03/27/2023) Basic Metabolic Panel (03/28/2023) ???Sodium - 133 mmol/L???Potassium - 4.6 mmol/L???Chloride - 95 mmol/L???Bicarbonate Level - 30 mmol/L???Anion Gap - 8???Glucose Level - 91 mg/dL???BUN - 18 mg/dL???Creatinine-Blood - 0.7 mg/dL???Estimated GFR Creatinine - 92 ML/MIN/1.73 M2???Calcium - 8.1 mg/dL CBC (04/02/2023) ???WBC - 3.8 k/mm3???RBC - 2.60 m/mm3???Hgb - 7.7 Gm/dL???Hct - 25.0 %???MCV - 96.2 femtoliters???MCH - 29.6 pg???MCHC - 30.8 g/dL???Platelet Count - 247 k/mm3???RDW-SD - 48.7 femtoliters???MPV - 9.0femtoliters???Nucleated RBC (Automated) - 0.0 #/100 WBC'S???Abs. NRBC - 0.0 k/mm3 CBC w/ Differential (03/23/2023) ???WBC - 11.0 k/mm3???RBC - 4.31 m/mm3???Hgb - 12.3 Gm/dL???Hct - 40.3 %???MCV - 93.5 femtoliters???MCH - 28.5 pg???MCHC - 30.5 g/dL???Platelet Count - 194 k/mm3???RDW-SD - 42.5 femtoliters???MPV - 10.0 femtoliters???Nucleated RBC (Automated) - 0.0 #/100 WBC'S???Abs. NRBC - 0.0 k/mm3???Abs. Neut - 9.9 k/mm3???Abs. Lymph - 0.6 k/mm3???Abs. Love - 0.5 k/mm3???Abs. Eo - 0.0 k/mm3???Abs. Baso - 0.0 k/mm3???Neut % - 89.8 %???Lymph % - 5.0 %???Love % - 4.3 %???Eos % - 0.2 %???Baso % - 0.2 %???Imm Gran - 0.5 %???Abs. Imm Gran - 0.1 k/mm3 Comprehensive Metabolic Panel (03/29/2023) ???Sodium - 136 mmol/L???Potassium - 4.8 mmol/L???Chloride - 96 mmol/L???Bicarbonate Level - 32 mmol/L???Anion Gap - 8???Glucose Level - 92 mg/dL???BUN - 13 mg/dL???Creatinine-Blood - 0.7 mg/dL???Estimated GFR Creatinine - 93 ML/MIN/1.73 M2???Calcium - 8.5 mg/dL???Protein, Total - 4.4 Gm/dL???Albumi n - 2.6 Gm/dL???AG Ratio - 1.4???Alkaline Phosphatase - 101 units/L???AST (SGOT) - 39 units/L???ALT(SGPT) - 15 units/L???Bilirubin, Total - 1.6 mg/dL COVID-19 (Novel Coronavirus), Rapid PCR (03/23/2023) ???COVID-19 by RT-PCR - NEGATIVE FERRITIN (03/29/2023) ???Ferritin Level - 474 ng/mL INR (03/23/2023) ???INR - 1.1???Protime (PT) - 11.7 seconds IRON & TIBC (03/29/2023) ???Iron Level - 53 mcg/dL???Iron Binding Capacity, Unsaturated - 174 mcg/dL???Iron Binding Capacity, Estimated Total - 227 mcg/dL???% Iron Saturation - 23 % LFT's (03/23/2023) ???Protein, Total - 4.6 Gm/dL???Albumin - 3.0 Gm/dL???Alkaline Phosphatase - 73 units/L???AST (SGOT) - 41 units/L???ALT (SGPT) - 28 units/L???Bilirubin, Total - 0.9 mg/dL???Bilirubin, Direct - 0.4 mg/dL???Bilirubin, Indirect - 0.5 mg/dL Lytes (03/26/2023) ???Sodium - 133 mmol/L???Potassium - 5.5 mmol/L???Chloride - 98 mmol/L???Bicarbonate Level - 25 mmol/L???Anion Gap - 10 Magnesium Level (03/24/2023) ???Magnesium - 1.7 mg/dL Mg Level (03/25/2023) ???Magnesium - 1.8 mg/dL Phosphorus Level (03/25/2023) ???Phosphorus - 3.0 mg/dL Potassium Level (03/26/2023) ???Potassium - 4.9 mmol/L Type and Screen (04/02/2023) ???Blood Type - B Positive???Antibody Screen - Negative Allergies (NKA means No Known Allergies) Depakote Talwin Tylox traZODONE Problems Active Problems??(21) Abdominal pain?? Benign essential tremor?? Bipolar II, anxiety disorder NOS, borderline personality disorder - therapist with [facility]?? [facility], [employer], Linda Russoo, ?? Chronic hepatitis C s/p treatment in 2013 - cured?? Chronic kidney disease (CKD), stage 4 - followed by Mike?? Cigarette smoker?? Cirrhosis - followed by GI; 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?? COPD, chronic emphysema, on chronic oxygen supplementation?? Health Care Proxy, Jaquelin Kenny, brother?? History of substance abuse, former heroin iv, cocaine,?? Hypertension?? Left knee OA - considering TKR with [facility] 12/2019?? Methadone program?? Obesity?? PTSD - Post-traumatic stress disorder?? Pulmonary nodule?? Rheumatoid arthritis?? Squamous cell lung cancer?? Stress incontinence, female?? Tubular adenoma of colon?? Education Materials Below is the list of Educational Leaflet Providered with your Discharge Instructions. Valuables and Belongings I fully understand and agree that [facility] accepts no responsibility for all my personal property including clothing, toilet articles, radios, jewelry, dentures, hearing aids, rings, money, or any other property that is in my possession or is brought to me after admission. I understand certain valuables may be placed in a hospital safe for a short period of time. I understand that the hospital is not liable for loss or damage due to accident, fire, or other natural occurrence while said property is in the safe. I accept full responsibility for any personal property that I keep with me, and will not hold the hospital responsible in case of loss or disappearance. I acknowledge that i have been encouraged to send valuables and belongings home. ?? No Valuables/Belongings: No valuables/belongings present Review of Valuable and Belonging List: With patient Possessions released to: no valuables to preop Date for Pt to Sign Valuables/Belongings: 04/04/23 15:21:00 ?? Other Discharge Information ?? Wound Assessment?? Wound Assessment?? Wound Location I: Buttocks, Left Wound Type I: Skin Tear Wound I, Present on Admission: Yes Wound Location II: Buttocks, Right Wound Type II: Skin Tear ?? Case Management Discharge Plan?? Discharge Plan?? Discharge Agency Information?? Discharge Level of Care at Discharge: [facility] facility Name of Agency [facility]1: [facility] Discharge Transportation Arranged: [facility] [address] [place] [address] ??[phone] Service Categories #1: Occupational Therapy, Oxygen Therapy, Physical Therapy, Correction Mode of Transportation Arranged: Ambulance Service Comments #1: You will be going to [facility] today leaving 4:00 PM by ambulance Discharge Arranged Transport Date/Time: 04/04/23 16:00:00 ?? Discharge Nursing Homes/Rehab Facilities: [facility] at [address] [place] [address] ? Pulmonary Rehab Status?? Pulmonary Rehab Discharge Status?? Respiratory Rate: 18 br/min ? Common Emergency Awareness Tips IS IT A STROKE? Act FAST and Check for these signs: FACE Does the face look uneven? ARM Does one arm drift down? SPEECH Does their speech sound strange? TIME Call at any sign of stroke ?? Heart Attack Signs Chest discomfort: Most heart attacks involve discomfort in the center of the chest and lasts more than a few minutes, or goes away and comes back. It can feel like uncomfortable pressure, squeezing, fullness or pain. Discomfort in upper body: Symptoms can include pain or discomfort in one or both arms, back, neck, jaw or stomach. Shortness of breath: With or without discomfort. Other signs: Breaking out in a cold sweat, nausea, or lightheaded. Remember, MINUTES DO MATTER. If you experience any of these heart attack warning signs, call to get immediate medical attention! ?? Smoking can increase your chances of developing chronic health problems and can cause harmful effects to other family members in your house. If you smoke, you are strongly encouraged to quit. Please call [facility] [employer] Link at [phone] or [phone]-S.N. [employer] ([phone]) or log in to [email or web address] for referrals to smoking cessation programs. ?? 596 Suicide & Crisis Lifeline is available 12/02 if you or someone you know needs to find a reason to keep living. By calling 390 you'll be connected to a skilled, trained counselor at a crisis center in your area. INPATIENT DISCHARGE INSTRUCTIONS SIGNATURE PAGE AXEL KENNY Location:[facility] Registration Date and Time:03/23/2023 19:26 EDT Primary Care Physician: Gustavo HARRIS, Yvette Robert, Attending Physician: Kendra HARRIS, Yomi Albert, I AXEL KENNY, have received the above patient education materials/instructions and have verbalized understanding. If ambulance or transport services are being used I further acknowledge being given a choice of service. ?? If you need to contact me, please call me at this number: . Patient/Mobile Equipment Operator Name: Patient/Mobile Equipment Operator Signature: Relationship to Patient: Witness Name/Signature: Date: * Magdiel García MD: PERFORM Event Display: Discharge/Transfer Note Hospital Authored Date: Patient: ??ZOYA, AXEL ? Age:??68 Years?Sex:??Female?:??1955?? Patient Information Discharge Location: [facility] Primary Care Physician: Yvette Chen MD Admit Date/Time: 03/23/23 19:26 Discharge Disposition Discharge Disposition: ?? Discharge Diagnosis Fall at home (W19.XXXA) Fracture of left radius (S52.92XA) Femur fracture, right (S72.91XA) ?? _ Discharge Medications Acetaminophen (acetaminophen 650 mg oral tablet, extended release)?1?tab(s)?By Mouth?Every 8 hours?as needed? NEEDED FOR MODERATE PAIN Albuterol (albuterol 0.083% inhalation solution)?1?vials?Inhalation?Every 4 to 6 hours?as needed? NEEDED FOR WHEEZE Albuterol (Ventolin HFA 108 mcg/inh inhalation aerosol with adapter)?2?puff(s)?Inhalation?Every 4 hours?as needed?Wheezing/Shortness of Breath Alprazolam?1?Milligram?By Mouth?Daily?as needed?as needed for anxiety Amlodipine (amLODIPine 10 mg oral tablet)?1?tab(s)?By Mouth?Daily Ammonium Lactate 12% (Amlactin 12% lotion)?1?lei?Topically?2 times a day?as needed?Dry Skin Cholecalciferol (Vitamin D3 1000 intl units oral tablet)?1?tab(s)?1,000?International Unit?By Mouth?Daily Clonazepam (ClonAZEPAM Tablet)?1.5?By Mouth?Daily at bedtime Clonazepam?1?Milligram?By Mouth?2 times a day Docusate (docusate sodium 100 mg oral capsule)?1?capsule?100?Milligram?By Mouth?2times a day?as needed?as needed for constipation?with plenty of water Durable Medical Equipment (Oxygen therapy; oxygen concentrator)?See Instructions?Oxygen 2 L at rest and 3 L with activityDx: COPD, h/o lung cancer, chronic hypoxiaLON 99 Durable Medical Equipment (Air conditioner)?See Instructions?To use to keep the room cool in the summerDx: COPD on home oxygen, J43.9, Z99.81LON 99Please fax to [facility] Durable Medical Equipment (Ensure)?See Instructions?As meal replacementDx: Pre-DM R73.03 and obesity E66.9Butter pecan if possibleLON 6 monthsPlease fax to [facility] Durable Medical Equipment (Air Conditioner)?See Instructions?Dx: COPD J44.9To help avoid exacerbationsLON 99Please fax to [facility] Durable Medical Equipment (Pads)?See Instructions?Dx: Stress Urinary Incontinence N39.34/Dilan 99Please fax to: [phone] [facility] one care attn to Linda Evans Durable Medical Equipment (Ensure)?See Instructions?2/dayDx: Unintentional weight loss, advanced COPD, cirrhosisLON 99Please fax to [facility] Durable Medical Equipment (Various Tube Drainage Supplies)?See Instructions?10cc syrings, alcohol pads, gloves (medium), sterile saline, disposable chuxs, drain sponges (3x3) and tapeDx: surgical tube drainage; cholecystitis K81.9 with c-tube in place Z93.4Supplies to change dressing every 3 days or if the dressing bec... Durable Medical Equipment (Alcohol pads)?See Instructions?Dx: surgical tube drainage; cholecystitis K81.9 with c-tube in place Z93.4Supplies to change dressing every 3 days or if the dressing becomes soiledLON: 3 months Durable Medical Equipment (Gloves, medium)?See Instructions?Dx: surgical tube drainage; cholecystitis K81.9 with c-tube in place Z93.4Supplies to change dressing every 3 days or if the dressingbecomes soiledLON: 3 months Durable Medical Equipment (10 cc syringe)?See Instructions?Dx: surgical tube drainage; cholecystitis K81.9 with c-tube in place Z93.4Supplies to change dressing every 3 days or if the dressing becomes soiledLON: 3 months Durable Medical Equipment (Sterile saline)?See Instructions?Dx: surgical tube drainage; cholecystitis K81.9 with c-tube in place Z93.4Supplies to change dressing every 3 days or if the dressingbecomes soiledLON: 3 months Durable Medical Equipment (Disposable chux pads)?See Instructions?Dx: surgical tube drainage;cholecystitis K81.9 with c-tube in place Z93.4Supplies to change dressing every 3 days or if the dressing becomes soiledLON: 3 months Durable Medical Equipment (Drain sponges, 3x3)?See Instructions?Dx: surgical tube drainage; cholecystitis K81.9 with c-tube in place Z93.4Supplies to change dressing every 3 days or if the dressing becomes soiledLON: 3 months Durable Medical Equipment (paper tape)?See Instructions?Dx: surgical tube drainage; cholecystitis K81.9 with c-tube in place Z93.4Supplies to change dressing every 3 days or if the dressing becomes soiledLON: 3 months Durable Medical Equipment (Pulse oximeter)?See Instructions?Use to monitor home O2 satDx: COPD, h/o lung cancer, chronic hypoxia, on home oxygen therapyLON 99Please fax to [facility], Topical (Lubriderm Advanced Therapy topical lotion)?See Instructions?Topically 4 times a day fluticasone/umeclidinium/vilanterol (fluticasone/umeclidinium/vilanterol 100 mcg-62.5 mcg-25 mcg/inh inhalation powder)?1?puff(s)?Inhalation?Daily?at the same time every day Hydromorphone (Dilaudid 2 mg oral tablet)?4?Milligram?By Mouth?Every 4 hours?as needed?Pain , Moderate?for 5?Days HydrOXYzine (hydrOXYzine hydrochloride 50 mg oral tablet)?1?tab(s)?By Mouth?Daily at bedtime?as needed? NEEDED FOR SLEEP Lamotrigine (lamotrigine 25 mg oral tablet)?50?Milligram?2?tablet?By Mouth?3 times a day?unsure exact dosing; rx by psychiatry #540/3 month supply Lisinopril (lisinopril 2.5 mg oral tablet)?1?tablet?By Mouth?Daily Methadone (Methadone Liquid)?27?Milligram?By Mouth?Daily Miscellaneous Rx (Nebulizer supplies including tubing and mouth piece)?See Instructions?Dx: COPDLON 99Fax to [facility] Miscellaneous Rx (VITAMIN D3 25 MCG TABLET)?TAKE 1 TABLET BY MOUTH EVERY DAY Omeprazole (omeprazole 20 mg oral enteric coated capsule)?1?capsule?By Mouth?2 times a day Oxygen?as needed?24 hours Pantoprazole (pantoprazole 40 mg oral delayed release tablet)?TAKE 1 TABLET BY MOUTH EVERY DAY Pentoxifylline (pentoxifylline 400 mg oral tablet, extended release)?400?Milligram?1?tablet?By Mouth?2 times a day Ursodiol?500?Milligram?By Mouth?2 times a day ? Quality Measures Tobacco Use Treatment:? Durable Medical Equipment Current home treatments: Oxygen therapy (04/01/23) On Admit VNA/Hospice/Home Care: [facility] (03/27/23) Discharge recommendations: Rehab (03/26/23) Name of Agency #1: [facility] (03/29/23) Service Categories #1: Occupational Therapy, Physical Therapy, Correction, Other: Delivery of Methadone form [facility] (03/29/23) Service Comments #1: The nurse will call you to schedule a visit. if you have any questions or concerns please call them at ??[facility] ??[phone] (03/29/23) ? Allergies Allergies ?(Active and Proposed Allergies Only) Tylox? (Severity: Unknown severity, Onset: Unknown) Depakote? (Severity: Unknown severity, Onset: Unknown) Talwin? (Severity: Unknown severity, Onset: Unknown) traZODONE? (Severity: Unknown severity, Onset: Unknown) ? Stroke Onset Details Service Categories #1: Occupational Therapy, Physical Therapy, Correction, Other: Delivery of Methadone form [facility] ?? Future Appointments Sunday 9:20 AM EDT ?? Where: [facility] [address] [place] [address]- Status: Pending Hospital Course ??68-year-old female with past medical history of essential hypertension, active cigarette smoker (currently 2 cigarettes/day-down from prior 1pack/day), severe COPD/emphysema with chronic hypoxia???on 3 LPM's NC at all times (follows with Dr. 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 Mckeon, bipolar disorder II/anxiety disorder presented fall resulting in Right intertrochanteric femur fracture?? : S/P Right intertan 09/, Left distal radius fracture-s/p reduction/splint application, she is medically clear for discharge to rehab facililty accepting methadone. ?? S/P mechanical fall at home Right intertrochanteric femur fracture?? : S/P Right intertan 09/ Left distal radius fracture-s/p reduction/splint application by Ortho team. - Maintain splint to LUE - OOB with PT, TDWB RLE, platform attachment on walker for LUE fracture - DVT prophylaxis: Lovenox x 28 days post-op ??Anamika may be removed at rehab or in the office on POD#14, please contact [facility] office with any wound redness, drainage, increased pain, falls, change in alignment??before F/U visit -Please follow-up with Dr. Oscar at the [facility] office in 4-6 weeks. Please call [phone] to schedule/confirm your appointment ??-Splint is to remain clean, dry and intact until follow-up appointment at [facility] with Dr. Schreiber??in the medical office building, [address].?? please call [phone] in 1-2 days post discharge schedule an appointment ? Anemia due to acute blood??loss :??required 1 prbc transfusion.??hb stable. ? Chronic and Stable Issues: Essential hypertension: stopped ?lisinopril?? in view of hyperkalemia and pentoxifylline resumed.?? resume when appropirate ??? Continue amlodipine 10mg QD Active cigarette smoker Severe COPD/emphysema/chronic??hypoxic respiratory failure???on 2-3 LPM's NC at all times History of squamous cell carcinoma of the lung status postresection/radiation therapy ??Nicotine patches , ??? DuoNeb for wheezing/dyspnea continue home inhalors. ?? GERD: Continue PO pantoprazole HCV???treated, complicated by cirrhosis, follow-up with GI specialist at [facility] History of IV drug use???currently methadone, doing well: Per records, on methadone 27 mg daily.?? resumed ?? Bipolar disorder, Anxiety disorder:?? Stable on current home medication regimen: PRN alprazolam 1mgQD anxiety; clonazepam 1mg in AM and afternoon, with 1.5mg QHS; and lamotrigine 50mg TID Objective Assessment and Plan Discharge Planning:? Vital Signs?? Temperature: 98.2 DegF (04/03/23 07:31:00) Temperature Route: Oral (04/03/23 07:31:00) Pulse Rate: 74 bpm (04/03/23 07:31:00) Respiratory Rate: 18 br/min (04/03/23 11:02:00) Systolic Blood Pressure: 110 mm Hg (04/03/23 07:31:00) Diastolic Blood Pressure: 63 mm Hg (04/03/23 07:31:00) Blood pressure sites: Arm, right (04/03/23 07:31:00) Mean Arterial Pressure: 79 mm Hg (04/03/23 07:31:00) Pulse Pressure: 47 mm Hg (04/03/23 07:31:00) Oxygen Saturation: 99 % (04/03/23 07:31:00) Liters per Minute: 2 L/min (04/03/23 03:41:00) Mode of Delivery (Oxygen): Room air (04/03/23 07:31:00) Early Warning Score: 3 (04/03/23 11:02:48) ? . Physical Exam General: Awake, not in??distress Cardiac: RRR, no murmurs,?? Pulmonary: Normal breathing sounds bilaterally Abdominal: No tenderness or rebound tenderness, : chronic noland. MSK: decreased ROM of right hip dressing clean dry intact. and left wrist immobilized in splint with soft cast Surgical Procedures Intramedullary Nailing Femur Intermedull 03/25/2023 16:48 Pending Results Add On Lab Order ordered on 03/29/2023 RBCs for Surgery ordered on 03/25/2023 Transfuse RBCs ordered on 03/27/2023 Home Health Face to Face ^HomeHealthFTF Results Discharge Labs BLOOD BANK Blood Type B Positive ()?? 04/02/2023 01:16 Antibody Screen Negative ()?? 04/02/2023 01:16 RBC Unit ID [id number] ()?? 03/27/2023 11:41 RBC Available PT ()?? 03/27/2023 11:41 ?? BLOOD COUNT & DIFF WBC 3.8 k/mm3 (Low)?? 04/02/2023 01:23 RBC 2.60 m/mm3 (Low)?? 04/02/2023 01:23 Hgb 7.7 Gm/dL (Low)?? 04/02/2023 01:23 Hct 25.0 % (Low)?? 04/02/2023 01:23 MCV 96.2 femtoliters ()?? 04/02/2023 01:23 MCH 29.6 pg ()?? 04/02/2023 01:23 MCHC 30.8 g/dL (Low)?? 04/02/2023 01:23 Platelet Count 247 k/mm3 ()?? 04/02/2023 01:23 RDW-SD 48.7 femtoliters (High)?? 04/02/2023 01:23 MPV 9.0 femtoliters (Low)?? 04/02/2023 01:23 Nucleated RBC (Automated) 0.0 #/100 WBC'S ()?? 04/02/2023 01:23 Abs. NRBC 0.0 k/mm3 ()?? 04/02/2023 01:23 Abs. Neut 9.9 k/mm3 (High)?? 03/23/2023 17:33 Abs. Lymph 0.6 k/mm3 (Low)?? 03/23/2023 17:33 Abs. Love 0.5 k/mm3 ()?? 03/23/2023 17:33 Abs. Eo 0.0 k/mm3 ()?? 03/23/2023 17:33 Abs. Baso 0.0 k/mm3 ()?? 03/23/2023 17:33 Neut % 89.8 % (High)?? 03/23/2023 17:33 Lymph % 5.0 % (Low)?? 03/23/2023 17:33 Love % 4.3 % (Low)?? 03/23/2023 17:33 Eos % 0.2 % ()?? 03/23/2023 17:33 Baso % 0.2 % ()?? 03/23/2023 17:33 Imm Gran 0.5 % ()?? 03/23/2023 17:33 Abs. Imm Gran 0.1 k/mm3 ()?? 03/23/2023 17:33 ?? CHEM GENERAL Sodium 136 mmol/L ()?? 03/29/2023 01:44 Potassium 4.8 mmol/L ()?? 03/29/2023 01:44 Chloride 96 mmol/L (Low)?? 03/29/2023 01:44 Bicarbonate Level 32 mmol/L (High)?? 03/29/2023 01:44 Anion Gap 8 ()?? 03/29/2023 01:44 Glucose Level 92 mg/dL ()?? 03/29/2023 01:44 BUN 13 mg/dL ()?? 03/29/2023 01:44 Creatinine-Blood 0.7 mg/dL ()?? 03/29/2023 01:44 Estimated GFR Creatinine 93 ML/MIN/1.73 M2 ()?? 03/29/2023 01:44 Calcium 8.5 mg/dL (Low)?? 03/29/2023 01:44 Phosphorus 3.0 mg/dL ()?? 03/25/2023 01:54 Magnesium 1.8 mg/dL ()?? 03/25/2023 01:54 Protein, Total 4.4 Gm/dL (Low)?? 03/29/2023 01:44 Albumin 2.6 Gm/dL (Low)?? 03/29/2023 01:44 AG Ratio 1.4 ()?? 03/29/2023 01:44 Alkaline Phosphatase 101 units/L ()?? 03/29/2023 01:44 AST (SGOT) 39 units/L (High)?? 03/29/2023 01:44 ALT (SGPT) 15 units/L ()?? 03/29/2023 01:44 Bilirubin, Total 1.6 mg/dL (High)?? 03/29/2023 01:44 Bilirubin, Direct 0.4 mg/dL (High)?? 03/23/2023 22:24 Bilirubin, Indirect 0.5 mg/dL ()?? 03/23/2023 22:24 Iron Level 53 mcg/dL ()?? 03/29/2023 01:44 Iron Binding Capacity, Unsaturated 174 mcg/dL ()?? 03/29/2023 01:44 Iron Binding Capacity, Estimated Total 227 mcg/dL ()?? 03/29/2023 01:44 % Iron Saturation 23 % ()?? 03/29/2023 01:44 Ferritin Level 474 ng/mL (High)?? 03/29/2023 01:44 ?? COAG INR 1.1 ()?? 03/23/2023 22:24 Protime (PT) 11.7 seconds (High)?? 03/23/2023 22:24 ?? URINE OTHER Est Creatinine Clearance 56.69 mL/min ()?? 03/28/2023 03:34 ? VIROLOGY COVID-19 by RT-PCR NEGATIVE ()?? 03/23/2023 19:23 ? 40_ minutes spent on discharge Patient Care team information Care Team Personnel Name: Tresa Ramos RN Position: [facility] RN Member Role: Primary Care Nurse Name: Nic Lopez RN Position: S RN Member Role: Primary Care Nurse Name: Barbara Hughes RN Position: [facility] SHERITA Nurse Member Role: Primary Care Nurse Name: Donna Kirk RN Position: [facility] RN Member Role: Primary Care Nurse Name: Gabrielle Ramires RN Position: [facility] RN Member Role: Primary Care Nurse Name: Serina Leonard RN Position: [facility] RN Supv Member Role: Primary Care Nurse Name: Christiano Sidhu RN Position: [facility] RN Member Role: Primary Care Nurse Name: Blanquita Jackson RN Position: [facility] RN Member Role: Primary Care Nurse Name: Jessica Foster RN Position: [facility] RN Member Role: Primary Care Nurse Name: Tianna Barber RN Position: [facility] RN Member Role: Primary Care Nurse Name: Viji Bess RN Position: [facility] RN Member Role: Primary Care Nurse Name: Norma Dillard NP Position: [facility] PCO Associate Professional Member Role: Primary Care Nurse Address: Address: [address] [place] [id number]- Name: Yvette Chen MD Position: [facility] Physician - Primary Care Member Role: PCP Address: Address: [address] [place] [id number]- Name: Gi Lin LPN Position: [facility] RN Member Role: Primary Care Nurse Name: Linda Haile RN Position: [facility] RN Member Role: Primary Care Nurse Name: Laura Guillermo Position: [facility] RN Member Role: Primary Care Nurse Name: Joanna Li RN Position: [facility] RN Member Role: Primary Care Nurse Name: Candy Li RN Position: [facility] RN Member Role: Primary Care Nurse Name: Rakel Kenyon RN Position: [facility] Oncsandy RN Member Role: Primary Care Nurse Name: Linda Crews RN Position: [facility] RN Member Role: Primary Care Nurse Name: Sergey Coon RN Position: [facility] RN Member [...] Care Nurse Name: Raudel Maciel RN Position: [facility] RN Member Role: Primary Care Nurse Name: Yo Zapien RN Position: [facility] RN Member Role: Primary Care Nurse Name: Max Parks RN Position: [facility] RN Member Role: Primary Care Nurse Name: Layla Clinton RN Position: [facility] RN Member Role: Primary Care Nurse Name: Lila Lara RN Position: [facility] Onco RN Member Role: Primary Care Nurse Name: Dalila Workman RN Position: [facility] RN Member Role: Primary Care Nurse Name: Patsy Bailey RN Position: [facility] RN Member Role: Primary Care Nurse Name: Richard Mensah MD Position: [facility] Physician - [facility] Member Role: Lifetime Consulting Physician Address: Address: [address] [place] [address] Name: *Jan, ED Attending Position: [facility] ED Attendings Patient Name: *YENI Inpt Attending Position: [facility] ED Medicine MD Name: Penelope Wallace Position: [facility] ED OA Charge Member Role: ED Associate Name: Mildred Johnson RN Position: [facility] ED RN W/OE and Tasks Member Role: Patient Care Provider Name: Thang Bradley Position: [facility] ED TA [facility] Member Role: [employer] Off Bearer Name: Darcy Syed RN Position: [facility] ED RN W/OE and Tasks Member Role: Patient Care Provider Care Team Related Persons Name: DAHIANA VALENTE Address: home [place], [place] Name: DAHIANA FLORES Address: home [address] [place] [address] Name: DOUGLAS KENNY Address: [place], [place] Name: JAQUELIN KENNY Address: home [place], [place] Name: LILA KENNY Address: home [address] [place] [address]
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
--- OUTSIDE RECORDS SUMMARY | 2024-01-25 10:16 | XMS_ITS | Continuity of Care Document ---
Author Organization [facility] Address [address] [place] [address]- Care Team Providers Care Belt Line Feeder Name Role Phone Gustavo HARRIS, Yvette Robert Primary Care Physician [facility] Date(s): 07/12/23 - 08/11/[address] [address]- Allergies, Adverse Reactions, Alerts Substance Reaction Severity [...] vaccine, inactivated 04/03/12 Give n SARS-CoV-2 mRNA ([id number]) vax 02/13/22 Given SARS-CoV-2 (COVID-19) mRNA BNT-162b2 [...] Comment: normal saline diluent added lot number [id number] expires 10/20/2022 2Admin Note: VIS given 05/16/2011 [...] J43.9, Z99.81 CHARANJIT 99 Please fax to [employer], 11/11/19 13:40:00 EDT, Supply Start Date: 11/11/19 Status: Ordered Air Conditioner Air Conditioner, See Instructions, # 1 each, Refills 0, Tot. Refills 0, Maintenance, Dx: COPD J44.9To help avoid exacerbations CHARANJIT 99 Please fax to [facility] [employer], 12/30/20 13:22:00 EDT, Supply Start Date: 12/30/20 Status: Ordered albuterol 0.083% inhalation solution 1 vials, Inhalation, Every 4 to 6 hours, PRN NEEDED FOR WHEEZE, # 540 mL, 1 Refills, 07/12/22 15:39:00 EST, [facility]/pharmacy #[id number], 153, cm, 07/12/22 15:08:00 EST, [...] tablet, 3 Refills, Maintenance, 03/13/23 14:46:00 EDT, [facility]/pharmacy#[id number], 153, cm, 12/07/22 9:17:00 EDT, Height, [...] Refills, Maintenance, 05/03/23 11:09:00 EDT, [id number], 153, cm, 04/20/23 10:44:00 EDT, Height, 57,kg, [...] 1 each, 1 Refills, Maintenance, 08/18/22 16:46:00 EST,[facility]/pharmacy #[id number], Partial fill upon patient request if the [...] 18 Gm, 5 Refills, 03/13/23 14:46:00 EDT, [facility]/pharmacy #[id number], 153, cm, 12/07/22 9:17:00 EDT, [...] with [facility] 12/2019 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, 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, 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, 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 PTSD - Post-traumatic [...] Team Personnel Name: Tresa Ramos RN Position: [facility] SN RN Member Role: Primary Care Nurse Name: Nic Lopez RN Position: [facility] RN Member Role: Primary Care Nurse Name: Roshni Rm RN Position: [facility] RN Member Role: Primary Care Nurse Name: Barbara Hughes RN Position: [facility] AMB Nurse Member Role: Primary Care Nurse Name: Donna Kirk RN Position: [facility] SN RN Member Role: Primary Care Nurse Name: Gabrielle Ramires RN Position: [facility] RN Member Role: Primary Care Nurse Name: Serina Leonard RN Position: [facility] RN Supv Member Role: Primary Care Nurse Name: Christiano Sidhu RN Position: [facility] RN Member Role: Primary Care Nurse Name: Blanquita Jackson RN Position: [facility] RN Member Role: Primary Care Nurse Name: Mindy Armendariz RN Position: [facility] Onco RN Member Role: Primary Care Nurse Name: Jessica Foster RN Position: [facility] RN Member Role: Primary Care Nurse Name: Tianna Barber RN Position: [facility] RN Member Role: Primary Care Nurse Name: Viji Bess RN Position: [facility] RN Member Role: Primary Care Nurse Name: Norma Dillard NP Position: [facility] PCO Associate Professional Member Role: Primary Care Nurse Address: Address: [address] [place] [address]- Name: Yvette Chen MD Position: [facility] Physician - Primary Care Member Role: PCP Address: Address: [address] [place] [address]- Name: Gi Lin LPN Position: [facility] RN Member Role: Primary Care Nurse Name: Linda Haile RN Position: [facility] RN Member Role: Primary Care Nurse Name: Joanna Li RN Position: [facility] RN Member Role: Primary Care Nurse Name: Candy Li RN Position: [facility] RN Member Role: Primary Care Nurse Name: Rakel Kenyon RN Position: [facility] Onco RN Member Role: Primary Care Nurse Name: Linda Crews RN Position: [facility] RN Member Role: Primary Care Nurse Name: Sergey Coon RN Position: [facility] RN Member Role: Primary Care Nurse Name: Nga Vaca RN Position: [facility] RN Member Role: Primary Care Nurse Name: Evangelina Hudson RN Position: [facility] RN Member Role: Primary Care Nurse Name: Lovely Goldman RN Position: [facility] RN Member Role: Primary Care Nurse Name: Raudel Maciel RN Position: [facility] RN Member Role: Primary Care Nurse Name: Yo Zapien RN Position: [facility] RN Member Role: Primary Care Nurse Name: Max Parks RN Position: [facility] RN Member Role: Primary Care Nurse Name: Layla Clinton RN Position: [facility] RN Member Role: Primary Care Nurse Name: Dalila Workman RN Position: [facility] RN Member Role: Primary Care Nurse Name: Patsy Bailey RN Position: [facility] RN Member Role: Primary Care Nurse Name: Richard Mensah MD Position: [facility] Physician - Behavioral Health Member Role: Lifetime Consulting Physician Address: Address: [address] [place] [address]- [place] Care Team Related Persons Name: DAHIANA VALENTE Address: [place] [address] Name: DAHIANA FLORES Address: home [address] [place] [address] Name: DOUGLAS KENNY Address: home [place], [place] Name: JAQUELIN KENNY Address: home [place], [place] Name: MINDY KENNY Address: home [address] [place] [address]
--- OUTSIDE RECORDS SUMMARY | 2024-01-25 10:16 | XMS_ITS | Continuity of Care Document ---
Author Organization [facility] Address [address] [place] [address]- Care Team Providers Care Construction Ironworker Helper Name Role Phone Gustavo HARRIS, Yvette Robert Primary Care Physician [phone] [facility]counter [facility] Date(s): 08/09/23 - 09/08/[address] [address]- Allergies, Adverse Reactions, Alerts Substance Reaction Severity [...] vaccine, inactivated 04/03/12 Give n SARS-CoV-2 mRNA ([id number]) vax 02/13/22 Given SARS-CoV-2 (COVID-19) mRNA BNT-162b2 [...] Comment: normal saline diluent added lot number [id number] expires 10/20/2022 2Admin Note: VIS given 05/16/2011 [...] J43.9, Z99.81 CHARANJIT 99 Please fax to [employer], 11/11/19 13:40:00 EDT, Supply Start Date: 11/11/19 Status: Ordered Air Conditioner Air Conditioner, See Instructions, # 1 each, Refills 0, Tot. Refills 0, Maintenance, Dx: COPD J44.9To help avoid exacerbations CHARANJIT 99 Please fax to [facility], 12/30/20 13:22:00 EDT, Supply Start Date: 12/30/20 Status: Ordered albuterol 0.083% inhalation solution 1 vials, Inhalation, Every 4 to 6 hours, PRN NEEDED FOR WHEEZE, # 540 mL, 1 Refills, 07/12/22 15:39:00 EST, [facility]/pharmacy #[id number], 153, cm, 07/12/22 15:08:00 EST, [...] 2 Refills, Maintenance, 12/07/22 15:47:00 EDT, Lotion, [facility]/pharmacy #[id number], Partial fill upon patient request if the prescription is for a schedule II opioid drug., 1 application [employer]opic[employer]... Start Date: 12/07/22 Status: Ordered amLODIPine 10 mg oral tablet 1 tablet, By Mouth, Daily, # 90 tablet, 3 Refills, Maintenance, 08/20/23 14:39:00 EST, [facility]/pharmacy#[id number], 153, cm, 08/20/23 14:08:00 EST, Height, [...] M17.10 CHARANJIT 1 year Please fax to [employer], 08/29/23 13:44:00 EST, Supply Start Date: 08/29/23 [...] each, 11 Refills, Maintenance, 08/20/2413:39:00 EST, Powder, [facility]/pharmacy #[id number], Partial fill upon [...] tablet, 1 Refills, Maintenance, 05/03/23 11:09:00 EDT, [id number], 153, cm, 04/20/23 10:44:00 EDT, Height, 57,kg, 03/24/23 13:41:00 EDT, Dry Weight Start Date: 05/03/23 Status: Ordered hydrOXYzine hydrochloride 50 mg oral tablet 1 tablet, By Mouth, Daily at bedtime, PRN NEEDED FOR SLEEP, # 30 tablet, 5 Refills, Maintenance,11/10/22 9:24:00 EDT, [facility]/pharmacy #[id number], 153, cm, 11/10/22 9:00:00 EDT, [...] 3, 08/20/23 14:39:00 EST, Route toPharmacy Electronically, [facility]/pharmacy #[id number], 153, cm, 08/20/23 14:08:00 EST, Height, 57, kg, 03/24/23 13:41:00 EDT, Dry Weight Start Date: 08/20/23 Status: Ordered Lubriderm Advanced Therapy topical lotion See Instructions, Topically 4 times a day, # 1 each, 1 Refills, Maintenance, 08/20/23 14:41:00 EST,[facility]/pharmacy #[id number], Partial fill upon patient request [...] considering TKR with [facility] 12/2019 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 *[phone] 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 PTSD - Post-traumatic [...] Team Personnel Name: Tresa Ramos RN Position: [facility] RN Member Role: Primary Care Nurse Name: Nic Lopez RN Position: [facility] RN Member Role: Primary Care Nurse Name: Roshni Rm RN Position: [facility] RN Member Role: Primary Care Nurse Name: Barbara Hughes RN Position: [facility] SHERITA Nurse Member Role: Primary Care Nurse Name: Donna Kirk RN Position: [facility] RN Member Role: Primary Care Nurse Name: Gabrielle Ramires RN Position: [facility] RN Member Role: Primary Care Nurse Name: Serina Leonard RN Position: [facility] RN Supv Member Role: Primary Care Nurse Name: Christiano Sidhu RN Position: [facility] RN Member Role: Primary Care Nurse Name: Blanquita Jackson RN Position: [facility] RN Member Role: Primary Care Nurse Name: Mindy Armendariz RN Position: [facility] Onco RN Member Role: Primary Care Nurse Name: Jessica Foster RN Position: [facility] RN Member Role: Primary Care Nurse Name: Tianna Barber RN Position: [facility] RN Member Role: Primary Care Nurse Name: Viji Bess RN Position: [facility] RN Member Role: Primary Care Nurse Name: Norma Dillard NP Position: [facility] PCO Associate Professional Member Role: Primary Care Nurse Address: Address: [address] [place] [address]- Name: Yvette Chen MD Position: [facility] Physician - Primary Care Member Role: PCP Address: Address: [address] [place] [address]- Name: Gi Lin LPN Position: [facility] RN Member Role: Primary Care Nurse Name: Linda Haile RN Position: [facility] RN Member Role: Primary Care Nurse Name: Joanna Li RN Position: [facility] RN Member Role: Primary Care Nurse Name: Candy Li RN Position: [facility] RN Member Role: Primary Care Nurse Name: Rakel Kenyon RN Position: [facility] Onco RN Member Role: Primary Care Nurse Name: Linda Crews RN Position: [facility] RN Member Role: Primary Care Nurse Name: Sergey Coon RN Position: [facility] RN Member Role: Primary Care Nurse Name: Nga Vaca RN Position: [facility] RN Member Role: Primary Care Nurse Name: Evangelina Hudson RN Position: [facility] RN Member Role: Primary Care Nurse Name: Lovely Goldman RN Position: [facility] Onco RN Member Role: Primary Care Nurse Name: Raudel Maciel RN Position: [facility] RN Member Role: Primary Care Nurse Name: Yo Zapien RN Position: [facility] RN Member Role: Primary Care Nurse Name: Max Parks RN Position: [facility] RN Member Role: Primary Care Nurse Name: Layla Clinton RN Position: [facility] RN Member Role: Primary Care Nurse Name: Dalila Workman RN Position: S RN Member Role: Primary Care Nurse Name: Patsy Bailey RN Position: S RN Member Role: Primary Care Nurse Name: Richard Mensah MD Position: [facility] Physician - Behavioral Health Member Role: Lifetime Consulting Physician Address: Address: [address] [place] [address]- [place] Care Team Related Persons Name: DAHIANA VALENTE Address: [place] [address] Name: DAHIANA FLORES Address: home [address] [place] [address] Name: DOUGLAS KENNY Address: [place], [place] Name: JAQUELIN KENNY Address: [place], [place] Name: MINDY KENNY Address: [address] [address]
--- OUTSIDE RECORDS SUMMARY | 2024-01-25 10:16 | XMS_ITS | Continuity of Care Document ---
Author Organization [facility] Address [address] [place] [address]- Care Team Providers Care Email Developer Name Role Phone Gustavo HARRIS, Yvette Robert Primary Care Physician [phone] [facility]counter [facility] Date(s): 07/04/22 - 08/03/[address] [address]- Allergies, Adverse Reactions, Alerts Substance Reaction Severity [...] vaccine, inactivated 04/03/12 Give n SARS-CoV-2 mRNA ([id number]) vax 02/13/22 Given SARS-CoV-2 (COVID-19) mRNA BNT-162b2 [...] Comment: normal saline diluent added lot number [id number] expires 10/20/2022 2Admin Note: VIS given 05/16/2011 [...] Maintenance, 05/22/22 15:06:00 EDT, ER Tablet, [id number], Partial fill upon patient request if the prescription is for a schedule II opioid drug., 153, c... Start Date: 05/22/22 Status: Ordered Air conditioner Air conditioner, See Instructions, # 1 each, Refills 0, Tot. Refills 0, Maintenance, To use to keepthe room cool in the summer Dx: COPD on home oxygen, J43.9, Z99.81 CHARANJIT 99 Please fax to [employer], 11/11/19 13:40:00 EDT, Supply Start Date: 11/11/19 Status: Ordered Air Conditioner Air Conditioner, See Instructions, # 1 each, Refills 0, Tot. Refills 0, Maintenance, Dx: COPD J44.9To help avoid exacerbations CHARANJIT 99 Please fax to [facility] [facility], 12/30/20 13:22:00 EDT, Supply Start Date: [...] tablet, 1 Refills, Maintenance, 02/13/22 10:56:00 EDT, [facility]/pharmacy#[id number], 153, cm, 02/13/22 10:35:00 [...] 3 Refills, Maintenance, 11/01/21 8:57:00 EDT, Gel, [facility]/pharmacy #[id number], Partial fill [...] 2 Refills, Maintenance, 02/13/22 10:52:00 EDT, Capsule, [facility]/pharmacy #[id number], Partial fill [...] 3 mo... Start Date: 12/13/21 Status: Ordered guaiFENesin 100 mg/5 mL oral liquid 10 mL = 200 mg, By Mouth, Every 4 hours, PRN for cough, for 14 days, # 240 mL, 0 Refills, Acute 08/14/22 13:49:00 EST, 07/31/22 13:49:00 EST, Liquid, [facility]/pharmacy #[id number], Partial fill upon patient request if the prescription is for a schedule II opioid... Start Date: 07/31/22 Stop Date: 08/14/22 Status: Ordered hydrOXYzine hydrochloride 50 mg oral tablet 1 tablet, By Mouth, Daily at bedtime, PRN NEEDED FOR SLEEP, # 30 tablet, 5 Refills, Maintenance,04/04/22 8:40:00 EDT, [facility], 153, cm, 02/13/22 10:35:00 EDT, Height, 57, kg, 12/14/21 7:22:00 EDT, Dry Weight Start Date: 04/04/22 Status: Ordered lamotrigine 25 mg oral tablet 1, tablet, By Mouth, Daily, # 90 tablet, Refills 1, Route to Pharmacy Electronically, [facility], 158, cm, 04/18/21 10:02:00 EDT, Height, 63, kg, 07/10/19 11:28:00 EST, Dry Weight Start Date: 06/10/21 Status: Ordered lisinopril 2.5 mg oral tablet 1, tablet, By Mouth, Daily, # 90 tablet, Refills 1, Tot. Refills 1, 12/07/21 14:42:00 EDT, Route toPharmacy Electronically, [facility]/pharmacy #[id number], 152, cm, 11/22/21 [...] 0 Refills, Maintenance, 07/28/22 8:34:00 EST, Patch, [id number], Partial fill upon [...] N39.3 4/day CHARANJIT 99 Please fax to: [phone] [facility] one care [...] Refills, Maintenance, 03/03/21 15:57:00 EDT, REC Powder, [facility]/pharmacy #[id number], Partial fill upon patientrequest if the prescription is for a schedule II op... Start Date: 03/03/21 Status: Ordered Pulse oximeter Pulse oximeter, See Instructions, # 1 each, Refills 0, Tot. Refills 0, Maintenance, Use to monitor home O2 sat Dx: COPD, h/o lung cancer, chronic hypoxia, on home oxygen therapy CHARANJIT 99 Please fax to [phone], attn Linda Mcdowell, 04/21/22 15:11:... Start Date: 04/21/22 Status: Ordered simethicone 80 mg oral tablet, chewable 80 mg, 1, tablet, Chew, 3 times a day after meals and bedtime, PRN, for 30 days, # 100 tablet, Refills 1, Tot. Refills 1, Acute 09/10/22 15:38:00 EST, Dyspepsia, 07/12/22 15:38:00 EST, Route to Pharmacy Electronically, [facility]/pharmacy #[id number], Partial fill... 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 PTSD - Post-traumatic [...] Team Personnel Name: Tresa Ramos RN Position: [facility] SN RN Member Role: Primary Care Nurse Name: Nic Lopez RN Position: [facility] RN Member Role: Primary Care Nurse Name: Barbara Hughes RN Position: [facility] PCO RN Member Role: Primary Care Nurse Name: Donna Kirk RN Position: [facility] SN RN Member Role: Primary Care Nurse Name: Serina Leonard RN Position: [facility] RN Member Role: Primary Care Nurse Name: Blanquita Jackson RN Position: [facility] RN Member Role: Primary Care Nurse Name: Jessica Foster RN Position: [facility] RN Member Role: Primary Care Nurse Name: Tianna Barber RN Position: [facility] RN Member Role: Primary Care Nurse Name: Norma Dillard NP Position: [facility] PCO Associate Professional Member Role: Primary Care Nurse Address: Address: [address] [place] [address]- [place] Name: Yvette Chen MD Position: [facility] Primary Care Physician Member Role: PCP Address: Address: [address] [place] [address]- [place] Name: Linda Haile RN Position: [facility] RN Member Role: Primary Care Nurse Name: Joanna Li RN Position: [facility] RN Member Role: Primary Care Nurse Name: Candy Li RN Position: [facility] RN Member Role: Primary Care Nurse Name: Rakel Kenyon RN Position: [facility] Onco RN Member Role: Primary Care Nurse Name: Linda Crews RN Position: [facility] RN Member Role: Primary Care Nurse Name: Roshni Olivia RN Position: [facility] RN Member Role: Primary Care Nurse Name: Nga Vaca RN Position: [facility] RN Member Role: Primary Care Nurse Name: Evangelina Hudson RN Position: [facility] RN Member Role: Primary Care Nurse Name: Lovely Goldman RN Position: [facility] RN Member Role: Primary Care Nurse Name: Yo Zapien RN Position: [facility] RN Member Role: Primary Care Nurse Name: Max Parks RN Position: [facility] ED RN W/OE and Tasks Member Role: Primary Care Nurse Name: Mindy Lara RN Position: [facility] RN Member Role: Primary Care Nurse Name: Dalila Workman RN Position: [facility] RN Member Role: Primary Care Nurse Name: Patsy Bailey RN Position: [facility] RN Member Role: Primary Care Nurse Name: Richard Mensah MD Position: [facility] Psychiatry MD Member Role: Lifetime Consulting Physician Address: Address: [address] [place] [address]- [place] Care Team Related Persons Name: DAHIANA VALENTE Address: home [place], [place] Name: DAHIANA FLORES Address: home [address] [place] [address] Name: DOUGLAS KENNY Address: [place], [place] Name: JAQUELIN KENNY Address: home [place], [place] Name: MINDY KENNY Address: home [address] [place] [address]
--- OUTSIDE RECORDS SUMMARY | 2024-01-25 10:16 | XMS_ITS | Continuity of Care Document ---
Author Organization [facility] Address [address] [place] [address]- Care Team Providers Care Make Up Worker Name Role Phone Gustavo HARRIS, Yvette Robert Primary Care Physician [facility] Date[facility]s): 07/30/23 - 08/31/[address] [address]- Attending Physician: Not on Staff, Attending MD [...] vaccine, inactivated 04/03/12 Give n SARS-CoV-2 mRNA (fznfjxa-gjsv-cdsax) vax 02/13/22 Given SARS-CoV-2 (COVID-19) mRNA BNT-162b2 [...] Comment: normal saline diluent added lot number [id number] expires 10/20/2022 2Admin Note: VIS given 05/16/2011 3Admin Note: VIS 10/10/2005 4Admin Note: vis 08/15/11 5Admin Note: vis Medications 10 cc syringe 10 cc syringe, See Instructions, # 50 each, Refills 2, Tot. Refills 2, Maintenance, Dx: surgical tube drainage; cholecystitis K81.9 with c-tube in place Z93.4 Supplies to change dressing every 3 daysor if the dressing becomes soiled CHARANIJT: 3 prabhakar... Start Date: 12/13/21 Status: Ordered [...] J43.9, Z99.81 CHARANJIT 99 Please fax to [employer], 11/11/19 13:40:00 EDT, Supply Start Date: 11/11/19 Status: Ordered Air Conditioner Air Conditioner, See Instructions, # 1 each, Refills 0, Tot. Refills 0, Maintenance, Dx: COPD J44.9To help avoid exacerbations CHARANJIT 99 Please fax to [facility], 12/30/20 13:22:00 EDT, Supply Start Date: [...] 2 Refills, Maintenance, 12/07/22 15:47:00 EDT, Lotion, [facility]/pharmacy #[id number], Partial fill upon patient request if the prescription is for a schedule II opioid drug., 1 application Topicall... Start Date: 12/07/22 Status: Ordered amLODIPine 10 mg oral tablet 1 tablet, By Mouth, Daily, # 90 tablet, 3 Refills, Maintenance, 08/20/23 14:39:00 EST, [facility]/pharmacy#[id number], 153, cm, 08/20/23 14:08:00 EST, Height, 57, [...] each, 11 Refills, Maintenance, 08/20/2413:39:00 EST, Powder, [facility]/pharmacy #[id number], Partial fill upon patient [...] Refills, Maintenance, 05/03/23 11:09:00 EDT, [facility], 153, cm, 04/20/23 10:44:00 EDT, Height, 57,kg, 03/24/23 13:41:00 EDT, Dry Weight Start Date: 05/03/23 Status: Ordered hydrOXYzine hydrochloride 50 mg oral tablet 1 tablet, By Mouth, Daily at bedtime, PRN NEEDED FOR SLEEP, # 30 tablet, 5 Refills, Maintenance,11/10/22 9:24:00 EDT, [facility]/pharmacy #[id number], 153, cm, 11/10/22 9:00:00 EDT, Height, [...] 3, 08/20/23 14:39:00 EST, Route toPharmacy Electronically, [facility]/pharmacy #[id number], 153, cm, 08/20/23 14:08:00 EST, Height, 57, kg, 03/24/23 13:41:00 EDT, Dry Weight Start Date: 08/20/23 Status: Ordered Lubriderm Advanced Therapy topical lotion See Instructions, Topically 4 times a day, # 1 each, 1 Refills, Maintenance, 08/20/23 14:41:00 EST,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 PTSD - Post-traumatic [...] Team Personnel Name: Tresa Ramos RN Position: [facility] SN RN Member Role: Primary Care Nurse Name: Nic Lopez RN Position: [facility] RN Member Role: Primary Care Nurse Name: Roshni Rm RN Position: [facility] RN Member Role: Primary Care Nurse Name: Barbara Hughes RN Position: [facility] AMB Nurse Member Role: Primary Care Nurse Name: Donna Kirk RN Position: [facility] RN Member Role: Primary Care Nurse Name: Gabrielle Ramires RN Position: [facility] RN Member Role: Primary Care Nurse Name: Serina Leonard RN Position: [facility] RN Supv Member Role: Primary Care Nurse Name: Christiano Sidhu RN Position: [facility] RN Member Role: Primary Care Nurse Name: Blanquita Jackson RN Position: [facility] RN Member Role: Primary Care Nurse Name: Mindy Armendariz RN Position: [facility] Onco RN Member Role: Primary Care Nurse Name: Jessica Foster RN Position: [facility] RN Member Role: Primary Care Nurse Name: Tianna Barber RN Position: [facility] RN Member Role: Primary Care Nurse Name: Viji Bess RN Position: [facility] RN Member Role: Primary Care Nurse Name: Norma Dillard NP Position: [facility] PCO Associate Professional Member Role: Primary Care Nurse Address: Address: [address] [place] [address]- Name: Yvette Chen MD Position: [facility] Physician - Primary Care Member Role: PCP Address: Address: [address] [place] [address]- Name: Gi Lin LPN Position: [facility] RN Member Role: Primary Care Nurse Name: Linda Haile RN Position: [facility] RN Member Role: Primary Care Nurse Name: Joanna Li RN Position: [facility] RN Member Role: Primary Care Nurse Name: Candy Li RN Position: [facility] RN Member Role: Primary Care Nurse Name: Rakel Kenyon RN Position: [facility] Onco RN Member Role: Primary Care Nurse Name: Linda Crews RN Position: [facility] RN Member Role: Primary Care Nurse Name: Sergey Coon RN Position: [facility] RN Member Role: Primary Care Nurse Name: Nga Vaca RN Position: [facility] RN Member Role: Primary Care Nurse Name: Evangelina Hudson RN Position: [facility] RN Member Role: Primary Care Nurse Name: Lovely Goldman RN Position: [facility] Onco RN Member Role: Primary Care Nurse Name: Raudel Maciel RN Position: [facility] RN Member Role: Primary Care Nurse Name: Yo Zapien RN Position: [facility] RN Member Role: Primary Care Nurse Name: Max Parks RN Position: [facility] RN Member Role: Primary Care Nurse Name: Layla Cilnton RN Position: [facility] RN Member Role: Primary Care Nurse Name: Dalila Workman RN Position: [facility] RN Member Role: Primary Care Nurse Name: Patsy Bailey RN Position: [facility] RN Member Role: Primary Care Nurse Name: Richard Mensah MD Position: [facility] Physician - Behavioral Health Member Role: Lifetime Consulting Physician Address: Address: [address] [place] [address]- Care Team Related Persons Name: DAHIANA VALENTE Address: [place] [address] Name: DAHIANA FLORES Address: home [address] [place] [address] Name: DOUGLAS KENNY Address: [place], [place] Name: JAQUELIN KENNY Address: [place], [place] Name: MINDY KENNY Address: home [address] [place] [address]
--- OUTSIDE RECORDS SUMMARY | 2024-01-25 10:16 | XMS_ITS | Continuity of Care Document ---
Author Organization [facility] Address [address] [place] [address]- Care Team Providers Care Environmental Compliance Technician Name Role Phone Gustavo HARRIS, Yvette Robert Primary Care Physician [phone] [facility]counter [facility] Date(s): 08/20/23 - 09/19/[address] [address]- Attending Physician: Admtr, Ar8 Admitting Physician: Admtr, [...] vaccine, inactivated 04/03/12 Give n SARS-CoV-2 mRNA (qldidtz-gvym-qtjjh) vax 02/13/22 Given SARS-CoV-2 (COVID-19) mRNA BNT-162b2 [...] Comment: normal saline diluent added lot number [id number] expires 10/20/2022 2Admin Note: VIS given 05/16/2011 [...] J43.9, Z99.81 CHARANJIT 99 Please fax to [facility], 11/11/19 13:40:00 EDT, Supply Start Date: 11/11/19 Status: Ordered Air Conditioner Air Conditioner, See Instructions, # 1 each, Refills 0, Tot. Refills 0, Maintenance, Dx: COPD J44.9To help avoid exacerbations CHARANJIT 99 Please fax to [facility], 12/30/20 13:22:00 EDT, Supply Start Date: 12/30/20 Status: Ordered albuterol 0.083% inhalation solution 1 vials, Inhalation, Every 4 to 6 hours, PRN NEEDED FOR WHEEZE, # 525 mL, 1 Refills, Maintenance, 09/19/23 11:27:00 EST, [facility]/pharmacy #[id number], 153, cm, 08/20/23 14:08:00 EST, [...] Refills, Maintenance, 12/07/22 15:47:00 EDT, Lotion, [facility]/pharmacy #[id number], Partial fill upon patient request if the prescription is for a schedule II opioid drug., 1 application Topicall... Start Date: 12/07/22 Status: Ordered amLODIPine 10 mg oral tablet 1 tablet, By Mouth, Daily, # 90 tablet, 3 Refills, Maintenance, 08/20/23 14:39:00 EST, [facility]/pharmacy#[id number], 153, cm, 08/20/23 14:08:00 EST, Height, [...] 11 Refills, Maintenance, 08/20/2413:39:00 EST, Powder, [facility]/pharmacy #[id number], Partial fill upon patient request [...] 90 tablet, 0 Refills, Maintenance,09/18/23 10:02:00 EST, [facility]/pharmacy #[id number], 153, cm, 08/20/23 14:08:00 EST, [...] 08/20/23 14:39:00 EST, Route toPharmacy Electronically, [facility]/pharmacy #[id number], 153, cm, 08/20/23 14:08:00 EST, Height, 57, kg, 03/24/23 13:41:00 EDT, Dry Weight Start Date: 08/20/23 Status: Ordered Lubriderm Advanced Therapy topical lotion See Instructions, Topically 4 times a day, # 1 each, 1 Refills, Maintenance, 08/20/23 14:41:00 EST,[facility]/pharmacy #[id number], Partial fill upon patient request if the [...] considering TKR with [facility] 12/2019 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 *[id number] 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 at [phone]. Patient Education Information Follow-up Details: Patient Education Material: * Breonna Olivares: PERFORM, SIGN, VERIFY Event Display: Patient Education/Instruction Authored Date: [id number] [facility] Clinical Summary Person Information Name AXEL [...] (Abilify Tablet) , Tomorrow Ergocalciferol (Vitamin D 63135 iu oral capsule) 1 capsule, Oral, every [...] primary care provider, you may find a [facility] provider by calling [facility] Link at [phone]. Patient Education Information Follow-up Details: Patient Education Material: Patient Care team information Care Team Personnel Name: Tresa Ramos RN Position: [facility] RN Member Role: Primary Care Nurse Name: Nic Lopez RN Position: S RN Member Role: Primary Care Nurse Name: Roshni Rm RN Position: S RN Member Role: Primary Care Nurse Name: Barbara Hughes RN Position: [facility] AMB Nurse Member Role: Primary Care Nurse Name: Donna Kirk RN Position: [facility] SN RN Member Role: Primary Care Nurse Name: Gabrielle Ramires RN Position: [facility] RN Member Role: Primary Care Nurse Name: Serina Leonard RN Position: [facility] RN Supv Member Role: Primary Care Nurse Name: Christiano Sidhu RN Position: [facility] RN Member Role: Primary Care Nurse Name: Blanquita Jackson RN Position: [facility] RN Member Role: Primary Care Nurse Name: Mindy Armendariz RN Position: [facility] Onco RN Member Role: Primary Care Nurse Name: Jessica Foster RN Position: [facility] RN Member Role: Primary Care Nurse Name: Tianna Barber RN Position: [facility] RN Member Role: Primary Care Nurse Name: Viji Bess RN Position: [facility] RN Member Role: Primary Care Nurse Name: Norma Dillard NP Position: [facility] PCO Associate Professional Member Role: Primary Care Nurse Address: Address: [address] [place] [address]- Name: Yvette Chen MD Position: [facility] Physician - Primary Care Member Role: PCP Address: Address: [address] [place] [address]- Name: Gi Lin LPN Position: [facility] RN Member Role: Primary Care Nurse Name: Linda Haile RN Position: [facility] RN Member Role: Primary Care Nurse Name: Joanna Li RN Position: [facility] RN Member Role: Primary Care Nurse Name: Candy Li RN Position: [facility] RN Member Role: Primary Care Nurse Name: Rakel Kenyon RN Position: [facility] Onco RN Member Role: Primary Care Nurse Name: Linda Crews RN Position: [facility] RN Member Role: Primary Care Nurse Name: Sergey Coon RN Position: [facility] RN Member Role: Primary Care Nurse Name: Nga Vaca RN Position: [facility] RN Member Role: Primary Care Nurse Name: Evangelina Hudson RN Position: [facility] RN Member Role: Primary Care Nurse Name: Lovely Goldman RN Position: [facility] Onco RN Member Role: Primary Care Nurse Name: Raudel Maciel RN Position: [facility] RN Member Role: Primary Care Nurse Name: Yo Zapien RN Position: [facility] RN Member Role: Primary Care Nurse Name: Max Parks RN Position: [facility] RN Member Role: Primary Care Nurse Name: Layla Clinton RN Position: [facility] RN Member Role: Primary Care Nurse Name: Dalila Workman RN Position: [facility] RN Member Role: Primary Care Nurse Name: Patsy Bailey RN Position: [facility] RN Member Role: Primary Care Nurse Name: Richard Mensah MD Position: [facility] Physician - Behavioral Health Member Role: Lifetime Consulting Physician Address: Address: [address] [place] [address]- [place] Care Team Related Persons Name: DAHIANA VALENTE Address: [place] [address] Name: DAHIANA FLORES Address: home [address] [place] [address] Name: DOUGLAS KENNY Address: [place] [address] Name: JAQUELIN KENNY Address: home [place], [place] Name: MINDY KENNY Address: home [address] [place] [address]
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
--- OUTSIDE RECORDS SUMMARY | 2024-01-25 10:16 | XMS_ITS | Continuity of Care Document ---
Author Organization [facility] Pulmonary [facility] ed[facility] Address [address] [place] [address]- Care Team Providers Care Switchboard Troubleshooter Name Role Phone Yvette Chen MD Primary Care Physician [place] [facility]21 - 04/29/22 [facility] [address] [place], [place] [address] Attending Physician: Chinyere Solis MD Admitting Physician: Chinyere Solis MD Referring Physician: Yvette Chen MD Allergies, Adverse Reactions, Alerts Substance Reaction Severity Status Talwin Active Tylox Active Tylenol 1 Resolved Depakote Active traZODONE Active 1pt stated she takes tylenol and is not allergic Immunizations Given and Recorded Vaccine Date Status Refusal Reason SARS-CoV-2 mRNA ([id number]) vax 02/13/22 Given SARS-CoV-2 (COVID-19) mRNA BNT-162b2 [...] Comment: normal saline diluent added lot number [id number] expires 10/20/2022 2Admin Note: VIS given 05/16/2011 [...] J43.9, Z99.81 CHARANJIT 99 Please fax to [facility], 11/11/19 13:40:00 EDT, Supply Start Date: 11/11/19 Status: Ordered Air Conditioner Air Conditioner, See Instructions, # 1 each, Refills 0, Tot. Refills 0, Maintenance, Dx: COPD J44.9To help avoid exacerbations CHARANJIT 99 Please fax to [facility], 12/30/20 13:22:00 EDT, Supply Start Date: 12/30/20 Status: Ordered albuterol 0.083% inhalation solution 1 vials, Inhalation, Every 4 to 6 hours, PRN NEEDED FOR WHEEZE, # 540 mL, 1 Refills, [id number], 158, cm, 01/31/21 9:26:00 EDT, Height, 63, [...] 1 Refills, Maintenance, 02/13/22 10:56:00 EDT, [facility]/pharmacy#[id number], 153, cm, 02/13/22 10:35:00 EDT, Height, 57, kg, 12/14/21 7:22:00 EDT, Dry Weight Start Date: 02/13/22 Status: Ordered calcium (as carbonate) 500 mg oral tablet, chewable 1 tablet = 500 mg, Chew, 2 times a day, # 90 tablet, 0 Refills, Acute 07/22/22 8:50:00 EST, 01/10/22 8:50:00 EDT, Chew Tablet, [facility]/pharmacy #[id number], Partial fill upon patient request if [...] 11/01/21 8:57:00 EDT, Gel, [facility]/pharmacy #[id number], Partial fill upon patient request if [...] 5 Refills, Maintenance,04/04/22 8:40:00 EDT, [facility], 153, cm, 02/13/22 10:35:00 EDT, Height, 57, kg, 12/14/21 7:22:00 EDT, Dry Weight Start Date: 04/04/22 Status: Ordered lamotrigine 25 mg oral tablet 1, tablet, By Mouth, Daily, # 90 tablet, Refills 1, Route to Pharmacy Electronically, [facility], 158, cm, 04/18/21 10:02:00 EDT, Height, 63, kg, 07/10/19 11:28:00 EST, Dry Weight Start Date: 06/10/21 Status: Ordered lisinopril 2.5 mg oral tablet 1, tablet, By Mouth, Daily, # 90 tablet, Refills 1, Tot. Refills 1, 12/07/21 14:42:00 EDT, Route toPharmacy Electronically, [facility]/pharmacy #[id number], 152, cm, 11/22/21 11:54:00 EDT, Height, [...] Refills, Maintenance,11/07/21 16:47:00 EDT, [facility]/pharmacy #[id number], 158, cm, 11/01/21 8:21:00 EDT, Height [...] # 60 capsule, 5 Refills, [facility], 152, cm, 11/22/21 11:54:00 EDT, Height, 52.9, [...] N39.3 4/day CHARANJIT 99 Please fax to: [phone] [facility] one care attn to Linda [...] 15:57:00 EDT, REC Powder, [facility]/pharmacy #[id number], Partial fill upon patientrequest if the prescription is for a schedule II op... Start Date: 03/03/21 Status: Ordered Pulse oximeter Pulse oximeter, See Instructions, # 1 each, Refills 0, Tot. Refills 0, Maintenance, Use to monitor home O2 sat Dx: COPD, h/o lung cancer, chronic hypoxia, on home oxygen therapy CHARANJIT 99 Please fax to [phone], attn Linda Mcdowell, 04/21/22 15:11:... 

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
--- OUTSIDE RECORDS SUMMARY | 2024-01-25 10:17 | XMS_ITS | Continuity of Care Document ---
Author Organization [facility] Address [address] [place] [address]- Care Team Providers Care Exercise Science Internship Name Role Phone Gustavo HARRIS, Yvette Robert Primary Care Physician [phone] Encounter [facility] Date(s): 11/20/23 - 12/20/23 [facility] [address] [place], [place] [address] Allergies, Adverse Reactions, Alerts Substance [...] vaccine, inactivated 04/03/12 Give n SARS-CoV-2 mRNA ([id number]) vax 02/13/22 Given SARS-CoV-2 (COVID-19) mRNA BNT-162b2 [...] Comment: normal saline diluent added lot number [id number] expires 10/20/2022 2Admin Note: VIS given 05/16/2011 3Admin Note: VIS 10/10/2005 4Admin Note: vis 08/15/11 5Admin Note: vis Medications acetaminophen 650 mg oral tablet, extended release 1 tablet, By Mouth, Every 8 hours, PRN NEEDED FOR MODERATE PAIN, # 90 tablet, 5 Refills, Maintenance, 08/20/23 14:40:00 EST, [facility]/pharmacy #[id number], 153, cm, 08/20/23 14:08:00 EST, Height, 57, kg, 03/24/23 13:41:00 EDT, Dry Weight Start Date: 08/20/23 Status: Ordered albuterol 0.083% inhalation solution 1 vials, Inhalation, Every 4 to 6 hours, PRN NEEDED FOR WHEEZE, # 525 mL, 1 Refills, Maintenance, 09/19/23 11:27:00 EST, [facility]/pharmacy #[id number], 153, cm, 08/20/23 14:08:00 EST, Height, 57, kg, 03/24/23 13:41:00 EDT, Dry Weight Start Date: 09/19/23 Status: Ordered albuterol CFC free 90 mcg/inh inhalation aerosol 2, puffs, Inhalation, 4 times a day, PRN, # 1 each, Refills 11, Tot. Refills 11, Maintenance, 11/13/23 14:24:00 EDT, Aerosol, Route to Pharmacy Electronically, [id number], [facility]/pharmacy #[id number], 153, cm, 11/13/23 14:02:00 EDT, H... Start Date: 11/13/23 Status: Ordered Alprazolam 1 mg, By Mouth, Daily, PRN, Refills 0, Maintenance, as needed for anxiety, 04/06/20 22:43:00 EDT Start Date: 04/06/20 Status: Ordered amLODIPine 10 mg oral tablet 1 tablet, By Mouth, Daily, # 90 tablet, 3 Refills, Maintenance, 08/20/23 14:39:00 EST, [facility]/pharmacy#[id number], 153, cm, 08/20/23 14:08:00 EST, Height, 57, kg, 03/24/23 13:41:00 EDT, Dry Weight Start Date: 08/20/23 Status: Ordered Clonazepam = 1 mg, By Mouth, 2 times a day, 0 Refills, Maintenance, 12/27/18 13:29:45 EDT Start Date: 12/27/18 Status: Ordered diclofenac 3% topical gel = 0.5 Gm, Topically, 2 times a day, # 14 Gm, 0 Refills, Maintenance, 12/05/23 13:46:00 EDT, Gel, [facility]/pharmacy [...] 3, 08/20/23 14:39:00 EST, Route toPharmacy Electronically, [facility]/pharmacy #[id number], 153, cm, 08/20/23 14:08:00 EST, Height, 57, kg, 03/24/23 13:41:00 EDT, Dry Weight Start Date: 08/20/23 Status: Ordered Lubriderm Advanced Therapy topical lotion See Instructions, Topically 4 times a day, # 1 each, 1 Refills, Maintenance, 08/20/23 14:41:00 EST,[facility]/pharmacy #[id number], Partial fill [...] Compound Start Date: 10/29/17 Status: Ordered Oxygen therapy; oxygen concentrator Oxygen [...] each, 11 Refills, Maintenance, 11/12/2413:23:00 EDT, Powder, [facility]/pharmacy #[id number], Partial fill upon patient request if the [...] considering TKR with [facility] 12/2019 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 *[phone] 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 PTSD - Post-traumatic [...] Team Personnel Name: Tresa Ramos RN Position: [facility] SN RN Member Role: Primary Care Nurse Name: Nic Lopez RN Position: [facility] RN Member Role: Primary Care Nurse Name: Roshni Rm RN Position: [facility] RN Member Role: Primary Care Nurse Name: Barbara Hughes RN Position: [facility] AMB Nurse Member Role: Primary Care Nurse Name: Donna Kirk RN Position: [facility] SN RN Member Role: Primary Care Nurse Name: Gabrielle Ramires RN Position: [facility] RN Member Role: Primary Care Nurse Name: Serina Leonard RN Position: [facility] RN Supv Member Role: Primary Care Nurse Name: Christiano Sidhu RN Position: [facility] RN Member Role: Primary Care Nurse Name: Blanquita Jackson RN Position: [facility] RN Member Role: Primary Care Nurse Name: Mindy Armendariz RN Position: [facility] Onco RN Member Role: Primary Care Nurse Name: Jessica Foster RN Position: [facility] RN Member Role: Primary Care Nurse Name: Tianna Barber RN Position: [facility] RN Member Role: Primary Care Nurse Name: Viji Bess RN Position: [facility] RN Member Role: Primary Care Nurse Name: Norma Dillard NP Position: [facility] PCO Associate Professional Member Role: Primary Care Nurse Address: Address: [address] [place] [address]- [place] Name: Yvette Chen MD Position: [facility] Physician - Primary Care Member Role: PCP Address: Address: [address] [place] [address]- [place] Name: Linda Haile RN Position: [facility] RN Member Role: Primary Care Nurse Name: Joanna Li RN Position: [facility] RN Member Role: Primary Care Nurse Name: Candy Li RN Position: [facility] RN Member Role: Primary Care Nurse Name: Rakel Kenyon RN Position: [facility] Onco RN Member Role: Primary Care Nurse Name: Linda Crews RN Position: [facility] RN Member Role: Primary Care Nurse Name: Shaggy RNSergey Position: [facility] RN Member Role: Primary Care Nurse Name: Nga Vaca RN Position: [facility] RN Member Role: Primary Care Nurse Name: Evangelina Hudson RN Position: [facility] RN Member Role: Primary Care Nurse Name: Lovely Goldman RN Position: [facility] Onco RN Member Role: Primary Care Nurse Name: Raudel Maciel RN Position: [facility] RN Member Role: Primary Care Nurse Name: Yo Zapien RN Position: [facility] RN Member Role: Primary Care Nurse Name: Max Parks RN Position: [facility] RN Member Role: Primary Care Nurse Name: Layla Clinton RN Position: [facility] RN Member Role: Primary Care Nurse Name: Dalila Workman RN Position: [facility] RN Member Role: Primary Care Nurse Name: Patsy Bailey RN Position: [facility] RN Member Role: Primary Care Nurse Name: Richard Mensah MD Position: [facility] Physician - [facility] Member Role: Lifetime Consulting Physician Address: Address: [address] [place] [phone]- [place] Care Team Related Persons Name: DAHIANA VALENTE Address: home [place], [place] Name: DAHIANA FLORES Address: home [address] [place] [address] Name: DOUGALS KENNY Address: home [place], [place] Name: JAQUELIN KENNY Address: [place], [place] Name: MINDY KENNY Address: home [address] [place] [address]
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
== END 2024-01-25 11:11 | disposition home or self-care (01) ==
LOC: HO.HGI 10:07
PROVIDERS: PCP Family Medicine; Visit Provider Internal Medicine Gastroenterology
DX: K75.81 Nonalcoholic steatohepatitis (NASH) (principal); K74.60 Unspecified cirrhosis of liver
CPT/HCPCS: 99441

== ENCOUNTER → 2024-01-25 10:07 | Outpatient (BNVA) | payer OTHER, SELFPAY | PROVIDERS: PCP Family Medicine; Visit Provider Internal Medicine Gastroenterology ==

== ENCOUNTER 2024-06-02 11:17 | Outpatient (AMB) | payer OTHER, SELFPAY ==
--- NOTE | 2024-06-02 11:21 | A.OFFVIS_ITS ---
Vital Signs 06/02/24 11:22 Height 5 ft Weight 116 lb BMI 22.7 BP 154/79 H Blood Pressure Location Lt brachial Position Sitting Pulse 100 Pulse Oximetry (%) 80 L Intake Visit Reasons: 4 month follow up Intake Note: Herlinda presents in the office as a 4 month follow up. CC: She states that she broke her shoulder. 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 RECAP: she has severe copd, on oxygen 12/02 she was on trental and ursodiol due to elevated alk phos had new partner in life Cristiano, which has made her happier she had cholecystectomy 11/2021 DATA: u/s w elastography 01/2019: coarse liver, fibroscan F0-1, gallstone, kidney cyst u/s liver 06/2020---stable liver--coarse, no mass or lesions labs: 01/2020---MELD 11, CP A, AST, ALT nml labs: 06/2020--LFT nml she had CT chest without any concerns MRI 02/2022: [facility] CBD dilated, borderline dilated PD, with 0.6 cm panc cyst, cirrhosis INTERIM: She has been gaining weight appetite is poor at times no nausea or vomiting no abdominal pain US at [facility] 03/15--increased elastography, no mass, cirrhosis EXAM: GENERAL: The patient is well developed and nontoxic. VITAL SIGNS:see workflow HEENT: Nonicteric sclerae, PERRLA, EOMI. Oropharynx clear. Moist mucous membranes. Conjunctivae appear well perfused. No thyroid mass. CHEST: Chest wall is nontender. HEART: Regular rate and rhythm without murmurs. LUNGS: Clear to auscultation bilaterally. ABDOMEN: Soft, positive bowel sounds, nontender, no organomegaly.no flank tenderness SKIN: No rash, no excessive bruising, petechiae, or purpura. NEUROLOGIC: Cranial nerves II-XII intact without motor/sensory deficit. Psych: normal affect Assessment & Plan (1) Liver cirrhosis secondary to CARLSON (nonalcoholic steatohepatitis): had been stable 2/ weight loss prob 2/2 anxiety and COPD, stable now-- Plan: 1/ recheck labs, 2/ hold on variceal screening due to severe COPD, O2 dependant 3/ Ascites- none 4/ HE- no evidence 5/ liver transplant- not a candidate due to resp status--she has stopped smoking for the moment 6/ HCC screening- u/s liver w elastography--repeat next year -- 7./ordered boost [facility] History (Updated 09/24/23 @ 11:33 by BALWINDER Melton) History of hip surgery Hx of cholecystectomy History of colonoscopy Family History Father Hx of colon cancer, stage IV Mother HX: breast cancer Social History Household Members: None Alcohol intake: never Current occupational status: retired Physical Exam Vital Signs: Last Vital Signs Pulse 100 06/02/24 11:22 BP 154/79 H 06/02/24 11:22 Pulse Ox 80 L 06/02/24 11:22 BMI result Body Mass Index 22.7 Assessment & Plan Assessment & Plan (1) Liver cirrhosis secondary to CARLSON (nonalcoholic steatohepatitis): Code(s): K75.81 - Nonalcoholic steatohepatitis (CARLSON); K74.60 - Unspecified cirrhosis of liver Category: Medical Plan: see above Orders: Orders Complete Blood Count Auto Diff Today K74.60 - Unspecified cirrhosis of liver, K75.81 - Nonalcoholic steatohepatitis (CARLSON) Comprehensive Met. Panel Today K74.60 - Unspecified cirrhosis of liver, K75.81 - Nonalcoholic steatohepatitis (CARLSON) Prothrombin Time INR Today K74.60 - Unspecified cirrhosis of liver, K75.81 - Nonalcoholic steatohepatitis (CARLSON) Medications: New food supplemt, lactose-reduced (Boost High Protein) orally; 5,688 mL 4RF Coding Level of Care Code Est Pt Level 4 (36184) Diagnoses Liver cirrhosis secondary to CARLSON (nonalcoholic steatohepatitis) K75.81; K74.60
[2024-06-02 11:22] VITALS: BP 154/79; PULSE 100; O2SAT 80; BMI 22.7
== END 2024-06-02 11:47 | disposition home or self-care (01) ==
LOC: HO.HGI 11:17
PROVIDERS: PCP Family Medicine; Visit Provider Internal Medicine Gastroenterology
DX: K75.81 Nonalcoholic steatohepatitis (NASH) (principal); K74.60 Unspecified cirrhosis of liver
CPT/HCPCS: 99214

== ENCOUNTER → 2024-06-02 11:17 | Outpatient (BNVA) | payer OTHER, SELFPAY | PROVIDERS: PCP Family Medicine; Visit Provider Internal Medicine Gastroenterology | DX: K74.60 Unspecified cirrhosis of liver (principal); K75.81 Nonalcoholic steatohepatitis (NASH) | CPT/HCPCS: 99212 ==